=== PATIENT | female | born 1930 | race Hispanic/Latino ===

== ENCOUNTER 2017-03-17 14:26 | Inpatient (IN) | payer MEDICARE, OTHER ==
--- NOTE | 2017-03-17 15:33 | Emergency Department Report ---
ED Abdominal Pain HPI - General Chief Complaint: Abdominal Pain Stated Complaint: ABD PAIN,HTN Time Seen by Provider: 03/17/17 15:32 Source: patient, EMS Mode of arrival: Stretcher Limitations: No Limitations - History of Present Illness Initial Comments: The patient complains of the acute onset of lower abdominal pain at approximately 10:00 this morning. Pain also seems to involve her right upper quadrant. Does not radiate to the lower chest as stated in triage. I don't think this is accurate. Patient states she's not had pain like this before. She does not complain of back pain. She denies nausea vomiting fever or chills. She denies any prior surgery. MD Complaint: abdominal pain -: Sudden Location: periumbilical, RUQ, epigastric Radiation: RUQ Migration to: no migration Severity scale (0 -10): 10 Quality: aching Consistency: constant Improves With: nothing Worsens With: nothing Associated Symptoms: denies other symptoms. denies: nausea, vomiting, diarrhea , fever, chills, constipation (actually states frequent bowel movements) - Related Data Home Medications Medication Instructions Recorded Confirmed Last Taken Fluticasone/Salmeterol [Advair 1 puff IH BID 03/17/17 03/17/17 Unknown Diskus 250-50 mcg] Hydrochlorothiazide [Hctz] 12.5 mg PO QDAY 03/17/17 03/17/17 03/17/17 Simvastatin [Zocor TAB] 20 mg PO QHS 03/17/17 03/17/17 03/17/17 hydrALAZINE [Apresoline] 25 mg PO BID 03/17/17 03/17/17 03/17/17 Allergies Allergy/AdvReac Type Severity Reaction Status Date / Time No Known Allergies Allergy Unverified 07/21/13 20:48 ED Review of Systems ROS: Stated complaint: ABD PAIN,HTN Other details as noted in HPI Constitutional: denies: chills, fever Eyes: denies: eye pain, eye discharge, vision change ENT: denies: ear pain, throat pain Respiratory: denies: cough, shortness of breath, wheezing Cardiovascular: denies: chest pain, palpitations Endocrine: no symptoms reported Gastrointestinal: as per HPI, abdominal pain. denies: nausea, diarrhea Genitourinary: denies: urgency, dysuria, discharge Musculoskeletal: denies: back pain, joint swelling, arthralgia Skin: denies: rash, lesions Neurological: denies: headache, weakness, paresthesias Psychiatric: denies: anxiety, depression Hematological/Lymphatic: denies: easy bleeding, easy bruising ED Past Medical Hx - Past Medical History Hx Hypertension: Yes (no meds today) Hx CVA: Yes Hx Asthma: Yes Additional medical history: high cholesterol, gastric ulcer, hernia - Social History Smoking Status: Never Smoker Substance Use Type: Alcohol - Medications Home Medications: Home Medications Medication Instructions Recorded Confirmed Last Taken Type Fluticasone/Salmeterol [Advair 1 puff IH BID 03/17/17 03/17/17 Unknown History Diskus 250-50 mcg] Hydrochlorothiazide [Hctz] 12.5 mg PO QDAY 03/17/17 03/17/17 03/17/17 History Simvastatin [Zocor TAB] 20 mg PO QHS 03/17/17 03/17/17 03/17/17 History hydrALAZINE [Apresoline] 25 mg PO BID 03/17/17 03/17/17 03/17/17 History ED Physical Exam - General Limitations: No Limitations General appearance: alert, in distress - Head Head exam: Present: atraumatic, normocephalic - Eye Eye exam: Present: normal appearance. Absent: scleral icterus - ENT ENT exam: Present: mucous membranes moist - Neck Neck exam: Present: normal inspection. Absent: tenderness, meningismus - Respiratory Respiratory exam: Present: normal lung sounds bilaterally. Absent: respiratory distress - Cardiovascular Cardiovascular Exam: Present: regular rate, normal rhythm. Absent: systolic murmur, diastolic murmur, rubs, gallop - GI/Abdominal GI/Abdominal exam: Present: soft, tenderness, normal bowel sounds. Absent: distended, guarding, rebound, rigid, organomegaly, mass, bruit, pulsatile mass, hernia - Extremities Exam Extremities exam: Present: normal inspection - Back Exam Back exam: Present: normal inspection - Neurological Exam Neurological exam: Present: alert, oriented X3, CN II-XII intact. Absent: motor sensory deficit - Psychiatric Psychiatric exam: Present: normal affect, normal mood - Skin Skin exam: Present: warm, dry, intact, normal color. Absent: rash ED Course Vital Signs 03/17/17 03/17/17 03/17/17 14:47 14:48 14:49 Pulse Rate 63 62 Respiratory 13 13 Rate Blood Pressure 180/78 180/78 180/78 O2 Sat by Pulse 99 Oximetry 03/17/17 03/17/17 14:51 14:53 Pulse Rate 59 L 60 Respiratory 12 12 Rate Blood Pressure 162/70 162/70 O2 Sat by Pulse 99 99 Oximetry - Reevaluation(s) Reevaluation #1: Discussed the case with Dr. Celeste the surgeon. He recommended MRCP. He will be consulted. Discussed with Dr. Jiang who is admitted the patient for further care and evaluation. Lipase was quite high at 1312 and 2786 upon repeat. 03/17/17 18:31 Reevaluation #2: Pelvic exam was performed. The patient has a copious mucopurulent discharge. She did have adnexal tenderness. Diagnosis is PID. I will also consult Dr. Natarajan who has seen this patient past. I will improve her antibiotic coverage. 03/17/17 18:39 Reevaluation #3: Patient remains hemodynamically stable. Her ultrasound did not show gallstones or dilated duct. The gallbladder was distended. Further care per and consultants. 03/17/17 19:12 ED Medical Decision Making - Lab Data Result diagrams: 03/17/17 15:15 03/17/17 15:15 Laboratory Results - last 24 hr 03/17/17 03/17/17 03/17/17 15:15 15:15 15:15 WBC 10.7 RBC 5.02 Hgb 13.9 Hct 43.1 H MCV 86 MCH 28 MCHC 32 RDW 15.5 H Plt Count 415 Lymph % (Auto) 7.2 L Jennings % (Auto) 6.1 Eos % (Auto) 0.5 Baso % (Auto) 0.5 Lymph # 0.8 L Jennings # 0.7 Eos # 0.1 Baso # 0.1 Seg Neutrophils % 85.7 H Seg Neutrophils # 9.2 H PT INR APTT Sodium 139 Potassium 3.7 Chloride 96.2 L Carbon Dioxide 23 Anion Gap 24 BUN 13 Creatinine 0.4 L Estimated GFR > 60 BUN/Creatinine Ratio 32.50 Glucose 118 H Lactic Acid Calcium 9.1 Magnesium Total Bilirubin 1.10 Direct Bilirubin 0.8 H Indirect Bilirubin 0.3 AST 261 H ALT 130 H Alkaline Phosphatase 197 H Total Creatine Kinase CK-MB (CK-2) CK-MB (CK-2) Rel Index Troponin T < 0.010 NT-Pro-B Natriuret Pep Total Protein 6.4 Albumin 3.8 L Albumin/Globulin Ratio 1.5 Lipase > 300 H Blood Type Antibody Screen 03/17/17 03/17/17 03/17/17 16:36 16:36 16:36 WBC RBC Hgb Hct MCV MCH MCHC RDW Plt Count Lymph % (Auto) Jennings % (Auto) Eos % (Auto) Baso % (Auto) Lymph # Jennings # Eos # Baso # Seg Neutrophils % Seg Neutrophils # PT 14.4 INR 1.13 APTT 29.1 Sodium Potassium Chloride Carbon Dioxide Anion Gap BUN Creatinine Estimated GFR BUN/Creatinine Ratio Glucose Lactic Acid 1.40 Calcium Magnesium Total Bilirubin Direct Bilirubin Indirect Bilirubin AST ALT Alkaline Phosphatase Total Creatine Kinase CK-MB (CK-2) CK-MB (CK-2) Rel Index Troponin T < 0.010 NT-Pro-B Natriuret Pep Total Protein Albumin Albumin/Globulin Ratio Lipase Blood Type Antibody Screen 03/17/17 03/17/17 03/17/17 16:36 16:36 16:36 WBC RBC Hgb Hct MCV MCH MCHC RDW Plt Count Lymph % (Auto) Jennings % (Auto) Eos % (Auto) Baso % (Auto) Lymph # Jennings # Eos # Baso # Seg Neutrophils % Seg Neutrophils # PT INR APTT Sodium Potassium Chloride Carbon Dioxide Anion Gap BUN Creatinine Estimated GFR BUN/Creatinine Ratio Glucose Lactic Acid Calcium Magnesium 1.90 Total Bilirubin Direct Bilirubin Indirect Bilirubin AST ALT Alkaline Phosphatase Total Creatine Kinase 49 CK-MB (CK-2) 2.0 CK-MB (CK-2) Rel Index 4.0 Troponin T NT-Pro-B Natriuret Pep 123.5 Total Protein Albumin Albumin/Globulin Ratio Lipase Blood Type AB POSITIVE Antibody Screen Negative - EKG Data -: EKG Interpreted by Me EKG shows normal: sinus rhythm, axis (left axis), intervals, QRS complexes ( incomplete right bundle branch block), ST-T waves (nonspecific changes) - EKG Data Interpretation: no acute changes - Radiology Data Radiology results: report reviewed Consistent with pancreatitis rule out mass. Possible distended gallbladder with no gallstones on CT Critical care attestation.: If time is entered above; I have spent that time in minutes in the direct care of this critically ill patient, excluding procedure time. ED Disposition Clinical Impression: Pancreatitis Qualifiers: Chronicity: acute Pancreatitis type: other Acute pancreatitis complication: unspecified Qualified Code(s): K85.80 - Other acute pancreatitis without necrosis or infection Disposition: OP ADMIT IP TO THIS HOSP Is pt being admited?: Yes Does the pt Need Aspirin: No Condition: Stable Instructions: Abdominal Pain (ED) Referrals: PRIMARY CARE, [Primary Care Provider] - 3-5 Days Time of Disposition: 19:14
[2017-03-17] MEDS ORDERED: ZOFRAN IV ONE (15:44)
[2017-03-17] MEDS ORDERED: MORPHINE IV ONE ×2 (15:44→17:05)
[2017-03-17] MEDS ORDERED: ZOSYN/NS 3.375GM/50ML 3.375 GM/50 ML BAG IV ONE (15:47)
[2017-03-17 16:00] LABS: Basophils % (Auto) 0.5 % (0.0-1.8); Eosinophils % (Auto) 0.5 % (0.0-4.3); Hematocrit 43.1 % (30.3-42.9); Hemoglobin 13.9 gm/dl (10.1-14.3); Mean Corpuscular HGB Conc 32 % (30-34); Mean Corpuscular Hemoglobin 28 pg (28-32); Mean Corpuscular Volume 86 fl (79-97); Red Blood Count 5.02 M/mm3 (3.65-5.03); Red Cell Distribution Width 15.5 % (13.2-15.2); White Blood Count 10.7 K/mm3 (4.5-11.0)
[2017-03-17 16:12] LABS: Platelet Count 415 K/mm3 (140-440)
[2017-03-17 16:21] LABS: Alanine Aminotransferase 130 units/L (7-56); Albumin/Globulin Ratio 1.5 %; Alkaline Phosphatase 197 units/L (35-129); Anion Gap 24 mmol/L; Bilirubin,Direct 0.8 mg/dL (0-0.2); Bilirubin,Indirect 0.3 mg/dL; Blood Urea Nitrogen 13 mg/dL (7-17); Calcium 9.1 mg/dL (8.4-10.2); Carbon Dioxide 23 mmol/L (22-30); Chloride 96.2 mmol/L (98-107); Glucose 118 mg/dL (65-100); Potassium 3.7 mmol/L (3.6-5.0); Sodium 139 mmol/L (137-145); Total Protein 6.4 g/dL (6.3-8.2)
--- NOTE | 2017-03-17 16:43 | Cat Scan Report ---
CT of the abdomen and pelvis without contrast. History: Abdominal pain. Findings: There is a large hiatal hernia which is incompletely imaged on this study. The liver and spleen appear normal. The gallbladder is distended. There is suggestion of thickening of the wall the gallbladder, but this is not a definite finding. Correlation with gallbladder or sound is recommended. There is fullness of the pancreas at the junction of the body and tail. A mass in this lesion cannot be excluded. Calcified splenic vessels are noted. The kidneys are normal in size and configuration with no evidence of hydronephrosis or stones. There are no pelvic masses or abnormal fluid collections. No free air is seen. Uterine calcifications are noted. Impression: 1. Distended gallbladder with equivocal evidence of gallbladder wall thickening. Please correlate with gallbladder ultrasound. 2. Fullness of the pancreas at the junction of the body and tail. A Pancreatic mass cannot be excluded. 3. Large hiatal hernia, incompletely imaged.
[2017-03-17 17:08] LABS: INR 1.13 (0.87-1.13)
[2017-03-17 17:09] LABS: Partial Thromboplastin Time 29.1 Sec. (24.2-36.6)
[2017-03-17 17:16] LABS: Magnesium 1.9 mg/dL (1.7-2.3)
--- NOTE | 2017-03-17 17:16 | Admit Criteria Form ---
Admission Criteria Documentation: PANCREATITIS Clinical Indications for Admission to Inpatient Care (Place 'X' for any and all applicable criteria): Admission is indicated for 1 or more of the following (1)(2)(3)(4): [X ]I. Acute pancreatitis[A] as indicated by 2 or MORE of the following: [X ]a) Abdominal pain (eg, epigastric, left upper quadrant) [X ]b) Serum amylase or serum lipase greater than 3 times the upper limit of normal [ ]c) Characteristic findings from abdominal imaging (eg, pancreatic inflammation, pancreatic necrosis, peripancreatic fluid collection)[B] [ ]II. Pancreatitis (acute or chronic ) requiring inpatient care as indicated by 1 or more of the following [ ]a) Inability to maintain oral hydration Hypoxemia [ ]b) Evidence of infection (eg, fever, peripancreatic abscess) [ ]c) Severe pain requiring acute inpatient management [ ]d) Hemodynamic instability [ ]e) Hypoxemia [ ]f) Acute renal failure [ ]g) Severe electrolyte abnormalities Extended stay beyond goal length of stay may be needed for (1)(11) [ ]a) Severe acute pancreatitis (10)(19) [ ]b) Persistent symptoms, ascites, or pleural effusion [ ]c) Abdominal compartment syndrome (10) [ ]d) Late complications [ ]e) Gallstones in gallbladder [ ]f) Acute renal failure (27) The original [employer] content created by [employer] has been revised. The portions of the content which have been revised are identified through the use of italic text or in bold,and [facility] has neither reviewed nor approved the modified material.All other unmodified content is copyright [email or web address]. Please see references footnoted in the original [email or web address] edition 2016 Admission Criteria Met: Yes
[2017-03-17] MEDS ORDERED: DILAUDID IV ONE (18:09)
[2017-03-17] MEDS ORDERED: PEPCID IV ONE (18:10)
[2017-03-17 18:39] LABS: Albumin 3.8 g/dL (3.9-5); Lipase 2786 units/L (13-60)
--- NOTE | 2017-03-17 18:51 | Ultrasound Report ---
FINAL REPORT PROCEDURE: US ABDOMEN LIMITED TECHNIQUE: Real-time sonography was performed of the right upper quadrant of the abdomen with image documentation. CPT 88539 HISTORY: pancreatitis evaluate gall bladder COMPARISON: No prior studies are available for comparison. FINDINGS: Pancreas is obscured due to bowel gas. Proximal abdominal aorta is normal in size. Right kidney measures 8.1 cm in length and displays no abnormalities. Common bile duct is normal in size. Gallbladder is prominently distended without wall thickening or cholelithiasis. Consideration should be given to gallbladder hypofunction. No ascites is seen. IMPRESSION: Gallbladder is prominently distended. No suggestion of common bile duct obstruction is seen. Further evaluation with nuclear medicine biliary scan including CCK administration may be useful.
--- NOTE | 2017-03-17 20:21 | History and Physical Report ---
History of Present Illness Date of examination: 03/17/17 Date of admission: 03/17/17 19:10 Chief complaint: CC Severe Abdominalpain for 1 day History of present illness: History of Present Illness The patient complains of the acute onset of lower abdominal pain at approximately 10:00 this morning. Pain also seems to involve her right upper quadrant. Does not radiate to the lower chest as stated in triage. Patient states she's not had pain like this before. She does not complain of back pain. She denies nausea vomiting fever or chills. She denies any prior surgery.Pain is 10/10 sharp in nature. No exacerbating /relieving factors. MD Complaint: abdominal pain -: Sudden Location: periumbilical, RUQ, epigastric Radiation: RUQ Migration to: no migration Severity scale (0 -10): 10 Quality: aching Consistency: constant Improves With: nothing Worsens With: nothing Associated Symptoms: denies other symptoms. denies: nausea, vomiting, diarrhea , fever, chills, constipation (actually states frequent bowel movements) ED Past Medical Hx - Past Medical History Hx Hypertension: Yes (no meds today) Hx CVA: Yes Hx Asthma: Yes Additional medical history: high cholesterol, gastric ulcer, hernia - Social History Smoking Status: Never Smoker Substance Use Type: Alcohol Fam Hx Htn Surg Hx n/a - Medications Home Medications: Home Medications Medication Instructions Recorded Confirmed Last Taken Type Fluticasone/Salmeterol [Advair 1 puff IH BID 03/17/17 03/17/17 Unknown History Diskus 250-50 mcg] Hydrochlorothiazide [Hctz] 12.5 mg PO QDAY 03/17/17 03/17/17 03/17/17 History Simvastatin [Zocor TAB] 20 mg PO QHS 03/17/17 03/17/17 03/17/17 History hydrALAZINE [Apresoline] 25 mg PO BID 03/17/17 03/17/17 03/17/17 History Review of Systems Stated complaint: ABD PAIN,HTN Other details as noted in HPI Constitutional: denies: chills, fever Eyes: denies: eye pain, eye discharge, vision change ENT: denies: ear pain, throat pain Respiratory: denies: cough, shortness of breath, wheezing Cardiovascular: denies: chest pain, palpitations Endocrine: no symptoms reported Gastrointestinal: as per HPI, abdominal pain. denies: nausea, diarrhea Genitourinary: denies: urgency, dysuria, discharge Musculoskeletal: denies: back pain, joint swelling, arthralgia Skin: denies: rash, lesions Neurological: denies: headache, weakness, paresthesias Psychiatric: denies: anxiety, depression Hematological/Lymphatic: denies: easy bleeding, easy bruising Medications and Allergies Allergies Allergy/AdvReac Type Severity Reaction Status Date / Time No Known Allergies Allergy Unverified 07/21/13 20:48 Home Medications Medication Instructions Recorded Confirmed Last Taken Type Fluticasone/Salmeterol [Advair 1 puff IH BID 03/17/17 03/17/17 Unknown History Diskus 250-50 mcg] Hydrochlorothiazide [Hctz] 12.5 mg PO QDAY 03/17/17 03/17/17 03/17/17 History Simvastatin [Zocor TAB] 20 mg PO QHS 03/17/17 03/17/17 03/17/17 History hydrALAZINE [Apresoline] 25 mg PO BID 03/17/17 03/17/17 03/17/17 History Exam - Constitutional Vitals: Temp Pulse Resp BP Pulse Ox 83 28 H 150/82 96 03/17/17 19:03 03/17/17 19:03 03/17/17 19:03 03/17/17 19:03 General appearance: Present: severe distress, well-nourished - EENT Eyes: Present: PERRL ENT: hearing intact, clear oral mucosa - Neck Neck: Present: supple, normal ROM - Respiratory Respiratory effort: normal Respiratory: bilateral: CTA - Cardiovascular Heart rate: 80 Rhythm: regular Heart Sounds: Present: S1 & S2. Absent: rub, click - Extremities Extremities: no ischemia, pulses intact, pulses symmetrical, No edema Peripheral Pulses: within normal limits - Abdominal General gastrointestinal: Present: tender, normal bowel sounds Localized gastrointestinal: tender: RUQ, epigastric periumbilical, guarding: RUQ , epigastric periumbilical, rebound: RUQ, epigastric periumbilical Female genitourinary: Present: deferred - Rectal Rectal Exam: deferred - Integumentary Integumentary: Present: clear, warm, dry - Musculoskeletal Musculoskeletal: gait normal, strength equal bilaterally - Psychiatric Psychiatric: appropriate mood/affect, intact judgment & insight - Neurologic Neurologic: CNII-XII intact, moves all extremities - Allied Health Allied health notes reviewed: nursing, case management Results - Labs CBC & Chem 7: 03/17/17 15:15 03/17/17 15:15 Labs: Laboratory Last Values WBC 10.7 K/mm3 (4.5-11.0) 03/17/17 15:15 RBC 5.02 M/mm3 (3.65-5.03) 03/17/17 15:15 Hgb 13.9 gm/dl (10.1-14.3) 03/17/17 15:15 Hct 43.1 % (30.3-42.9) H 03/17/17 15:15 MCV 86 fl (79-97) 03/17/17 15:15 MCH 28 pg (28-32) 03/17/17 15:15 MCHC 32 % (30-34) 03/17/17 15:15 RDW 15.5 % (13.2-15.2) H 03/17/17 15:15 Plt Count 415 K/mm3 (140-440) 03/17/17 15:15 Lymph % (Auto) 7.2 % (13.4-35.0) L 03/17/17 15:15 [place] % (Auto) 6.1 % (0.0-7.3) 03/17/17 15:15 Eos % (Auto) 0.5 % (0.0-4.3) 03/17/17 15:15 Baso % (Auto) 0.5 % (0.0-1.8) 03/17/17 15:15 Lymph # 0.8 K/mm3 (1.2-5.4) L 03/17/17 15:15 [place] # 0.7 K/mm3 (0.0-0.8) 03/17/17 15:15 Eos # 0.1 K/mm3 (0.0-0.4) 03/17/17 15:15 Baso # 0.1 K/mm3 (0.0-0.1) 03/17/17 15:15 Seg Neutrophils % 85.7 % (40.0-70.0) H 03/17/17 15:15 Seg Neutrophils # 9.2 K/mm3 (1.8-7.7) H 03/17/17 15:15 PT 14.4 Sec. (12.2-14.9) 03/17/17 16:36 INR 1.13 (0.87-1.13) 03/17/17 16:36 APTT 29.1 Sec. (24.2-36.6) 03/17/17 16:36 Sodium 139 mmol/L (137-145) 03/17/17 15:15 Potassium 3.7 mmol/L (3.6-5.0) 03/17/17 15:15 Chloride 96.2 mmol/L (98-107) L 03/17/17 15:15 Carbon Dioxide 23 mmol/L (22-30) 03/17/17 15:15 Anion Gap 24 mmol/L 03/17/17 15:15 BUN 13 mg/dL (7-17) 03/17/17 15:15 Creatinine 0.4 mg/dL (0.7-1.2) L 03/17/17 15:15 Estimated GFR > 60 ml/min 03/17/17 15:15 BUN/Creatinine Ratio 32.50 % 03/17/17 15:15 Glucose 118 mg/dL (65-100) H 03/17/17 15:15 Lactic Acid 1.40 mmol/L (0.7-2.0) 03/17/17 16:36 Calcium 9.1 mg/dL (8.4-10.2) 03/17/17 15:15 Magnesium 1.90 mg/dL (1.7-2.3) 03/17/17 16:36 Total Bilirubin 1.10 mg/dL (0.1-1.2) 03/17/17 15:15 Direct Bilirubin 0.8 mg/dL (0-0.2) H 03/17/17 15:15 Indirect Bilirubin 0.3 mg/dL 03/17/17 15:15 AST 261 units/L (5-40) H 03/17/17 15:15 ALT 130 units/L (7-56) H 03/17/17 15:15 Alkaline Phosphatase 197 units/L (35-129) H 03/17/17 15:15 Total Creatine Kinase 49 units/L (30-135) 03/17/17 16:36 CK-MB (CK-2) 2.0 ng/mL (0.0-4.0) 03/17/17 16:36 CK-MB (CK-2) Rel Index 4.0 (0-4) 03/17/17 16:36 Troponin T < 0.010 ng/mL (0.00-0.029) 03/17/17 16:36 NT-Pro-B Natriuret Pep 123.5 pg/mL (0-900) 03/17/17 16:36 Total Protein 6.4 g/dL (6.3-8.2) 03/17/17 15:15 Albumin 3.8 g/dL (3.9-5) L 03/17/17 15:15 Albumin/Globulin Ratio 1.5 % 03/17/17 15:15 Lipase 2786 units/L (13-60) H 03/17/17 15:15 Blood Type AB POSITIVE 03/17/17 16:36 Antibody Screen Negative 03/17/17 16:36 Short CBC 03/17/17 Range/Units 15:15 WBC 10.7 (4.5-11.0) K/mm3 Hgb 13.9 (10.1-14.3) gm/dl Hct 43.1 H (30.3-42.9) % Plt Count 415 (140-440) K/mm3 BMP 03/17/17 15:15 Sodium 139 Potassium 3.7 Chloride 96.2 L Carbon Dioxide 23 BUN 13 Creatinine 0.4 L Glucose 118 H Calcium 9.1 Cardiac Enzymes 03/17/17 03/17/17 03/17/17 Range/Units 15:15 16:36 16:36 Total Creatine Kinase 49 (30-135) units/L CK-MB (CK-2) 2.0 (0.0-4.0) ng/mL Troponin T < 0.010 < 0.010 (0.00-0.029) ng/mL 03/17/17 Range/Units 21:17 Total Creatine Kinase (30-135) units/L CK-MB (CK-2) (0.0-4.0) ng/mL Troponin T < 0.010 (0.00-0.029) ng/mL Liver Function 03/17/17 Range/Units 15:15 Total Bilirubin 1.10 (0.1-1.2) mg/dL Direct Bilirubin 0.8 H (0-0.2) mg/dL AST 261 H (5-40) units/L ALT 130 H (7-56) units/L Alkaline Phosphatase 197 H (35-129) units/L Albumin 3.8 L (3.9-5) g/dL - Imaging and Cardiology CT scan - abdomen: report reviewed (Distende GB Fullness of pancreas) US - abdomen: report reviewed (GB distended ,No Bile duct obstruction) Assessment and Plan Advance Directives: Yes (Full code) VTE prophylaxis?: Chemical Plan of care discussed with patient/family: Yes - Patient Problems (1) Acute pancreatitis Current Visit: Yes Status: Acute Qualifiers: Pancreatitis type: biliary Acute pancreatitis complication: A Plan to address problem: Probably Gall stone induced GB distended Symptomatic treatment NPO IV fluids (2) Transaminitis Current Visit: Yes Status: Acute Plan to address problem: GB distended MRCP ordered Surgery consult ordered (3) HTN (hypertension) Current Visit: Yes Status: Chronic Qualifiers: Hypertension type: essential hypertension Qualified Code(s): I10 - Essential (primary) hypertension Plan to address problem: Catapress patch if needed (4) HLD (hyperlipidemia) Current Visit: Yes Status: Chronic Qualifiers: Hyperlipidemia type: mixed hyperlipidemia Qualified Code(s): E78.2 - Mixed hyperlipidemia Plan to address problem: Hold statins for now (5) Asthma Current Visit: No Status: Chronic Qualifiers: Asthma severity: A Asthma complication type: uncomplicated Plan to address problem: Advair prn (6) DVT prophylaxis Current Visit: Yes Status: Acute Plan to address problem: on Lovenox
[2017-03-17] MEDS ORDERED: DULCOLAX PR PRN (20:40)
[2017-03-17] MEDS ORDERED: ZOFRAN IV PRN (20:40)
[2017-03-17] MEDS ORDERED: MILK OF MAGNESIA PO PRN (20:40)
[2017-03-17] MEDS ORDERED: DILAUDID ONE (20:54)
[2017-03-17] MEDS: DILAUDID IV PRN (20:55)
[2017-03-17] MEDS: PULMICORT IH SCH (21:21)
[2017-03-17] MEDS: BROVANA NEBU IH SCH (21:21)
[2017-03-17] MEDS ORDERED: NON-FORMULARY (Fluticasone/Salmeterol [Advair Diskus 250-50 Mcg] 1 PUFF) IH SCH (22:00)
[2017-03-18] MEDS: D5NS 1,000 ML IV SCH ×2 (02:49→12:55)
[2017-03-18] MEDS: DILAUDID IV PRN ×4 (02:52→23:02)
[2017-03-18] MEDS: BROVANA NEBU IH SCH ×2 (07:32→19:49)
[2017-03-18] MEDS: PULMICORT IH SCH ×2 (07:32→19:49)
--- NOTE | 2017-03-18 07:54 | XRay Report ---
PORTABLE CHEST INDICATION: Chest pain. COMPARISON: 07/21/2013 FINDINGS: Portable, frontal chest radiograph again suggests a large hiatal hernia, approximately 12-13 cm transverse. Stable cardiomediastinal silhouette with poorer inspiration and increased lung markings centrally. Few chronic changes as mild bronchiectasis/peribronchial thickening/scarring noted more pronounced infrahilar and towards the bases. No significant pleural effusions or overt CHF. EKG leads. Demineralized bones. CONCLUSION: No significant acute chest process with various other findings, including a large hiatal hernia, as above. Please correlate. Thank you for the opportunity to participate in this patient's care.
[2017-03-18] MEDS: CATAPRES-TTS PATCH TD SCH (11:01)
[2017-03-18] MEDS: LOVENOX SUB-Q SCH (11:01)
[2017-03-18] MEDS: PEPCID IV SCH ×2 (11:02→22:09)
[2017-03-18] MEDS: ZOFRAN IV PRN ×2 (11:02→16:02)
--- NOTE | 2017-03-18 12:44 | Progress Note ---
Assessment and Plan Assessment and plan: --Acute pancreatitis Nothing by mouth status, pain medications, IV fluid Follow-up MRCP, HIDA scan if needed Surgery following --Transaminitis; closely monitor, supportive care --Dyslipidemia; on lipid-lowering medications --Hypertension; moderate control, continue current antihypertensives and when necessary medications --History of bronchial asthma, stable oxygen titrated to O2 sats more than 90% as needed --Full CODE STATUS --DVT prophylaxis; continue Lovenox Closely monitor the patient didn't adjust management as needed Plan of care discussed with the patient's family member in the room History Interval history: Patient seen and evaluated now responding reviewed Complains of mild epigastric pain Scheduled for MRCP, surgery following the patient Hospitalist Physical - Constitutional Vitals: Temp Pulse Resp BP Pulse Ox 97.6 F 77 18 118/75 98 03/18/17 08:00 03/18/17 08:00 03/18/17 08:00 03/18/17 08:00 03/18/17 09:34 General appearance: Present: mild distress, well-nourished - EENT Eyes: Present: PERRL, EOM intact - Neck Neck: Present: supple, normal ROM - Respiratory Respiratory effort: normal Respiratory: negative: rales, rhonchi, wheezing - Cardiovascular Rhythm: regular Heart Sounds: Present: S1 & S2 - Extremities Extremities: no ischemia, No edema - Abdominal General gastrointestinal: soft, tender (vague tenderness no guarding no rigidity ), normal bowel sounds - Integumentary Integumentary: Present: clear, warm - Psychiatric Psychiatric: appropriate mood/affect, cooperative - Neurologic Neurologic: CNII-XII intact, moves all extremities Results - Labs CBC & Chem 7: 03/17/17 15:15 03/17/17 15:15 Labs: Laboratory Last Values WBC 10.7 K/mm3 (4.5-11.0) 03/17/17 15:15 RBC 5.02 M/mm3 (3.65-5.03) 03/17/17 15:15 Hgb 13.9 gm/dl (10.1-14.3) 03/17/17 15:15 Hct 43.1 % (30.3-42.9) H 03/17/17 15:15 MCV 86 fl (79-97) 03/17/17 15:15 MCH 28 pg (28-32) 03/17/17 15:15 MCHC 32 % (30-34) 03/17/17 15:15 RDW 15.5 % (13.2-15.2) H 03/17/17 15:15 Plt Count 415 K/mm3 (140-440) 03/17/17 15:15 Lymph % (Auto) 7.2 % (13.4-35.0) L 03/17/17 15:15 [place] % (Auto) 6.1 % (0.0-7.3) 03/17/17 15:15 Eos % (Auto) 0.5 % (0.0-4.3) 03/17/17 15:15 Baso % (Auto) 0.5 % (0.0-1.8) 03/17/17 15:15 Lymph # 0.8 K/mm3 (1.2-5.4) L 03/17/17 15:15 [place] # 0.7 K/mm3 (0.0-0.8) 03/17/17 15:15 Eos # 0.1 K/mm3 (0.0-0.4) 03/17/17 15:15 Baso # 0.1 K/mm3 (0.0-0.1) 03/17/17 15:15 Seg Neutrophils % 85.7 % (40.0-70.0) H 03/17/17 15:15 Seg Neutrophils # 9.2 K/mm3 (1.8-7.7) H 03/17/17 15:15 PT 14.4 Sec. (12.2-14.9) 03/17/17 16:36 INR 1.13 (0.87-1.13) 03/17/17 16:36 APTT 29.1 Sec. (24.2-36.6) 03/17/17 16:36 Sodium 139 mmol/L (137-145) 03/17/17 15:15 Potassium 3.7 mmol/L (3.6-5.0) 03/17/17 15:15 Chloride 96.2 mmol/L (98-107) L 03/17/17 15:15 Carbon Dioxide 23 mmol/L (22-30) 03/17/17 15:15 Anion Gap 24 mmol/L 03/17/17 15:15 BUN 13 mg/dL (7-17) 03/17/17 15:15 Creatinine 0.4 mg/dL (0.7-1.2) L 03/17/17 15:15 Estimated GFR > 60 ml/min 03/17/17 15:15 BUN/Creatinine Ratio 32.50 % 03/17/17 15:15 Glucose 118 mg/dL (65-100) H 03/17/17 15:15 Lactic Acid 1.40 mmol/L (0.7-2.0) 03/17/17 16:36 Calcium 9.1 mg/dL (8.4-10.2) 03/17/17 15:15 Magnesium 1.90 mg/dL (1.7-2.3) 03/17/17 16:36 Total Bilirubin 1.10 mg/dL (0.1-1.2) 03/17/17 15:15 Direct Bilirubin 0.8 mg/dL (0-0.2) H 03/17/17 15:15 Indirect Bilirubin 0.3 mg/dL 03/17/17 15:15 AST 261 units/L (5-40) H 03/17/17 15:15 ALT 130 units/L (7-56) H 03/17/17 15:15 Alkaline Phosphatase 197 units/L (35-129) H 03/17/17 15:15 Total Creatine Kinase 49 units/L (30-135) 03/17/17 16:36 CK-MB (CK-2) 2.0 ng/mL (0.0-4.0) 03/17/17 16:36 CK-MB (CK-2) Rel Index 4.0 (0-4) 03/17/17 16:36 Troponin T < 0.010 ng/mL (0.00-0.029) 03/17/17 21:17 NT-Pro-B Natriuret Pep 123.5 pg/mL (0-900) 03/17/17 16:36 Total Protein 6.4 g/dL (6.3-8.2) 03/17/17 15:15 Albumin 3.8 g/dL (3.9-5) L 03/17/17 15:15 Albumin/Globulin Ratio 1.5 % 03/17/17 15:15 Lipase 2786 units/L (13-60) H 03/17/17 15:15 Blood Type AB POSITIVE 03/17/17 16:36 Antibody Screen Negative 03/17/17 16:36
--- NOTE | 2017-03-18 13:39 | Progress Note ---
Assessment and Plan Full consult dictated. 87 y/o female c/o RUQ & Epig pain. neg N or V Abd soft, mild epig and RUQ tenderess CT questionable mid body pancreatic mass. dilated GB no stones or thickened wall labs as below r/o pancreatitis r/o GB dysfunction/dyskenesia await MRCP possible HIDA with EF (but pt currently on narcotics) will follow with you thanks, fp Selected Entries 03/18/17 12:00 Temperature 98.3 F Pulse Rate 77 Respiratory 18 Rate Blood Pressure 115/77 Laboratory Tests 03/17/17 03/17/17 03/17/17 15:15 15:15 16:36 WBC 10.7 Hgb 13.9 Hct 43.1 H Plt Count 415 PT 14.4 INR 1.13 APTT 29.1 Sodium 139 Potassium 3.7 Chloride 96.2 L BUN 13 Creatinine 0.4 L Glucose 118 H Direct Bilirubin 0.8 H Indirect Bilirubin 0.3 AST 261 H ALT 130 H Alkaline Phosphatase 197 H Lipase 2786 H Objective Vital Signs - 12hr 03/18/17 03/18/17 03/18/17 04:18 05:53 07:40 Temperature 97.4 F L Pulse Rate 84 86 Pulse Rate [ 85 Anterior Bilateral Throughout] Respiratory 21 Rate Respiratory 18 Rate [Anterior Bilateral Throughout] Blood Pressure 128/81 O2 Sat by Pulse 98 Oximetry 03/18/17 03/18/17 03/18/17 07:50 08:00 09:34 Temperature 97.6 F Pulse Rate 77 Pulse Rate [ 86 Anterior Bilateral Throughout] Respiratory 18 Rate Respiratory 18 Rate [Anterior Bilateral Throughout] Blood Pressure 118/75 O2 Sat by Pulse 98 98 Oximetry 03/18/17 12:00 Temperature 98.3 F Pulse Rate 77 Pulse Rate [ Anterior Bilateral Throughout] Respiratory 18 Rate Respiratory Rate [Anterior Bilateral Throughout] Blood Pressure 115/77 O2 Sat by Pulse 95 Oximetry - Labs 03/17/17 15:15 03/17/17 15:15
[2017-03-18 14:04] LABS: Bilirubin,Urine NEG (Negative); Blood,Urine NEG (Negative); Ketones,Urine NEG (Negative); Leukocyte Esterase,Urine NEG (Negative); Mucus,Urine FEW /HPF; Nitrite,Urine NEG (Negative); Protein,Urine <15 mg/dL mg/dL (Negative); Urobilinogen,Urine < 2.0 mg/dL (<2.0)
[2017-03-18] MEDS ORDERED: LEVAQUIN 500MG/100ML 500 MG/100 ML BAG IV SCH (16:00)
--- NOTE | 2017-03-18 16:00 | Event Note ---
Date: 03/18/17 Was consulted for percutaneous cholecystostomy placement. This patient is currently being evaluated by surgery, and a HIDA scan is pending as well. A full consult will be dictated once final surgical recommendations and the HIDA scan results are available. This was discussed with Dr. Johnson.
--- NOTE | 2017-03-18 16:07 | Magnetic Resonance Report ---
MRI of the abdomen with MRCP. History: Pancreatitis, gallbladder distention. Procedure: Multiplanar multisequence study of the abdomen was performed. MRCP was performed using water sensitive slab sequence. Findings: The liver is normal in size and configuration. The gallbladder is distended and there is minimal pericholecystic fluid. Minimal ascites is also seen adjacent to the liver. The main portal vein appears patent, but there appears to be thrombosis of the left portal vein. There is also patency of the umbilical vein with stranding in the adjacent mesenteric fat. The spleen appears normal. There is soft tissue prominence of the region of the junction of the body and tail of the pancreas, similar to the appearance on CT. This area demonstrates similar signal to the rest of the pancreas with no evidence of pseudocyst or focal edema. A small cyst is seen in the upper pole of the left kidney. Otherwise the kidneys are unremarkable. MRCP demonstrates normal common duct with no obstructing or constricting lesions. The pancreatic duct appears normal as well. Impression: 1. Pericholecystic fluid with minimal gallbladder wall thickening. Minimal ascites is present. [place] cholecystitis is suspected. 2. Left portal venous thrombosis. 3. Soft tissue fullness at the junction of the pancreatic body and tail. Focal pancreatitis may be present although signs of edema in this area are lacking. Therefore, a mass in this area cannot be excluded. 4. Small left renal cyst.
[2017-03-18] MEDS ORDERED: LEVAQUIN 750MG/150ML 750 MG/150 ML BAG IV SCH (17:00)
[2017-03-19] MEDS: D5NS 1,000 ML IV SCH ×2 (01:53→15:46)
--- NOTE | 2017-03-19 02:02 | Consultation ---
REASON FOR CONSULTATION: Abdominal pain. Rule out pancreatitis. HISTORY OF PRESENT ILLNESS: The patient is an 87-year-old very pleasant female, who is awake, alert, and cooperative. Admitted with the chief complaint of what she describes as right upper quadrant epigastric and left upper quadrant abdominal pain. The patient denies any nausea or vomiting. also is having regular BMs. PAST MEDICAL HISTORY: Pertinent for hypertension and high cholesterol. PAST SURGICAL HISTORY: Status post right ankle surgery when she was a child back in [place]. Also, status post appendectomy and a left forearm ORIF. ALLERGIES: No known allergies. MEDICATIONS: Include statins or high cholesterol and a blood pressure medication, which she cannot recall at this time. FAMILY HISTORY: Hypertension. SOCIAL HISTORY: Occasional ethanol intake, smokes a pack a day for approximately 34 years, but quit approximately 33 years ago. PHYSICAL EXAMINATION: GENERAL: At this time reveals the patient to be awake, alert, cooperative, in no acute distress. VITAL SIGNS: Show her to be afebrile with a temperature of 98.3, blood pressure is 115/77, pulse of 77, respirations of 18. HEENT: Pupils are equal and reactive to light and accommodation. Sclerae is nonicteric. ABDOMEN: Reveals to be moderately obese and soft. There is some localized epigastric and right upper quadrant tenderness more so in the right upper quadrant. Bowel sounds are present and appear normal. LABORATORY DATA: Lab work at present includes a CBC which shows a white count of 10.7, H and H of 13.9 and 43.1. Platelet count is 415. PT and INR as well as PTT are within normal limits. Electrolytes show normal sodium of 139, potassium of 3.7, chloride of 96, BUN is 13, and creatinine is 0.4. Glucose is 118. Bilirubin is 1.1 with a direct of 0.8. AST is slightly elevated at 261, ALT at 130, and alk phos of 197. Lipase is elevated at 2786. No amylase is noted in the lab results. A CT scan of the abdomen has been performed, which I reviewed with Dr. Castillo. The gallbladder is noted to be dilated, but there is no thickened gallbladder wall or pericholecystic fluid. Also, no gallstones were noted. Common duct does not appear to be dilated. There is a questionable mass in the body of the pancreas. Unfortunately no contrast was used in this study, so it cannot be clearly delineated. A gallbladder ultrasound was also performed which again reveals no gallstones or thickened gallbladder wall. IMPRESSION: At this time is that of an 87-year-old hypertensive female with nonspecific abdominal pain. Rule out pancreatitis. Rule out possible gallbladder dysfunction/dyskinesia. RECOMMENDATIONS: At this time is to keep the patient n.p.o. as she is still requiring narcotics for pain. Awaiting MRCP results of tests, which has been ordered. Also, we will order a HIDA scan with ejection fraction to be done once the patient's narcotics can be discontinued. We will follow closely with you. Thank you very much for consultation. JOB# [id number] KARL/ANDREINA
[2017-03-19 06:10] LABS: Alanine Aminotransferase 106 units/L (7-56); Albumin 2.9 g/dL (3.9-5); Alkaline Phosphatase 142 units/L (35-129); Amylase 53 units/L (27-131); Anion Gap 14 mmol/L; Blood Urea Nitrogen 14 mg/dL (7-17); Calcium 8.1 mg/dL (8.4-10.2); Carbon Dioxide 30 mmol/L (22-30); Chloride 101.8 mmol/L (98-107); Glucose 113 mg/dL (65-100); Lipase 71 units/L (13-60); Sodium 142 mmol/L (137-145); Total Protein 5.7 g/dL (6.3-8.2)
[2017-03-19] MEDS: PULMICORT IH SCH ×2 (08:25→20:59)
[2017-03-19] MEDS: BROVANA NEBU IH SCH ×2 (08:25→20:59)
[2017-03-19] MEDS ORDERED: KINEVAC IV ONE ×3 (09:02→10:00)
[2017-03-19] MEDS ORDERED: WATER FOR INJ (PF) 10 ML ONE (09:04)
--- NOTE | 2017-03-19 09:13 | Progress Note ---
Assessment and Plan Assessment and plan: --Acute pancreatitis Improving, lipase and near-normal level, HIDA scan ordered ,surgery following MRCP findings noted, acalculous cholecystitis suspected Left portal venous thrombosis, focal pancreatitis, mass cannot be excluded Small left renal cyst. IR Vascular following for possible CT-guided drain placement as needed --Transaminitis; transaminases trending down, closely monitor --Hypoalbuminemia/moderate protein calorie malnutrition; secondary to underlying disease process Supportive care, nutrition supplements --Dyslipidemia; on lipid-lowering medications --Hypertension; well controlled, continue current antihypertensives and when necessary medications --History of bronchial asthma, stable oxygen titrated to O2 sats more than 90% as needed --Full CODE STATUS --DVT prophylaxis; continue Lovenox Closely monitor the patient didn't adjust management as needed Plan of care discussed with the patient's family member in the room History Interval history: Patient seen and evaluated this morning medical records reviewed Scheduled for HIDA scan, complaints of severe right upper quadrant pain Requesting for food, vital signs reviewed Hospitalist Physical - Constitutional Vitals: Temp Pulse Resp BP Pulse Ox 98.5 F 88 18 133/64 93 03/19/17 08:48 03/19/17 08:59 03/19/17 08:48 03/19/17 08:48 03/19/17 08:48 General appearance: Present: mild distress, well-nourished - EENT Eyes: Present: PERRL, EOM intact - Neck Neck: Present: supple, normal ROM - Respiratory Respiratory effort: normal Respiratory: bilateral: diminished, negative: rales, rhonchi, wheezing - Cardiovascular Rhythm: regular Heart Sounds: Present: S1 & S2 - Extremities Extremities: no ischemia, No edema - Abdominal General gastrointestinal: soft, tender (right upper quadrant ,no guarding no rigidity), normal bowel sounds - Integumentary Integumentary: Present: clear, warm - Psychiatric Psychiatric: appropriate mood/affect, cooperative - Neurologic Neurologic: CNII-XII intact, moves all extremities Results - Labs CBC & Chem 7: 03/17/17 15:15 03/19/17 04:59 Labs: Laboratory Last Values WBC 10.7 K/mm3 (4.5-11.0) 03/17/17 15:15 RBC 5.02 M/mm3 (3.65-5.03) 03/17/17 15:15 Hgb 13.9 gm/dl (10.1-14.3) 03/17/17 15:15 Hct 43.1 % (30.3-42.9) H 03/17/17 15:15 MCV 86 fl (79-97) 03/17/17 15:15 MCH 28 pg (28-32) 03/17/17 15:15 MCHC 32 % (30-34) 03/17/17 15:15 RDW 15.5 % (13.2-15.2) H 03/17/17 15:15 Plt Count 415 K/mm3 (140-440) 03/17/17 15:15 Lymph % (Auto) 7.2 % (13.4-35.0) L 03/17/17 15:15 [place] % (Auto) 6.1 % (0.0-7.3) 03/17/17 15:15 Eos % (Auto) 0.5 % (0.0-4.3) 03/17/17 15:15 Baso % (Auto) 0.5 % (0.0-1.8) 03/17/17 15:15 Lymph # 0.8 K/mm3 (1.2-5.4) L 03/17/17 15:15 [place] # 0.7 K/mm3 (0.0-0.8) 03/17/17 15:15 Eos # 0.1 K/mm3 (0.0-0.4) 03/17/17 15:15 Baso # 0.1 K/mm3 (0.0-0.1) 03/17/17 15:15 Seg Neutrophils % 85.7 % (40.0-70.0) H 03/17/17 15:15 Seg Neutrophils # 9.2 K/mm3 (1.8-7.7) H 03/17/17 15:15 PT 14.4 Sec. (12.2-14.9) 03/17/17 16:36 INR 1.13 (0.87-1.13) 03/17/17 16:36 APTT 29.1 Sec. (24.2-36.6) 03/17/17 16:36 Sodium 142 mmol/L (137-145) 03/19/17 04:59 Potassium 4.0 mmol/L (3.6-5.0) 03/19/17 04:59 Chloride 101.8 mmol/L (98-107) 03/19/17 04:59 Carbon Dioxide 30 mmol/L (22-30) D 03/19/17 04:59 Anion Gap 14 mmol/L 03/19/17 04:59 BUN 14 mg/dL (7-17) 03/19/17 04:59 Creatinine 0.5 mg/dL (0.7-1.2) L 03/19/17 04:59 Estimated GFR > 60 ml/min 03/19/17 04:59 BUN/Creatinine Ratio 28.00 % 03/19/17 04:59 Glucose 113 mg/dL (65-100) H 03/19/17 04:59 Lactic Acid 1.40 mmol/L (0.7-2.0) 03/17/17 16:36 Calcium 8.1 mg/dL (8.4-10.2) L 03/19/17 04:59 Magnesium 1.90 mg/dL (1.7-2.3) 03/17/17 16:36 Total Bilirubin 1.00 mg/dL (0.1-1.2) 03/19/17 04:59 Direct Bilirubin 0.8 mg/dL (0-0.2) H 03/17/17 15:15 Indirect Bilirubin 0.3 mg/dL 03/17/17 15:15 AST 53 units/L (5-40) H 03/19/17 04:59 ALT 106 units/L (7-56) H 03/19/17 04:59 Alkaline Phosphatase 142 units/L (35-129) H 03/19/17 04:59 Total Creatine Kinase 49 units/L (30-135) 03/17/17 16:36 CK-MB (CK-2) 2.0 ng/mL (0.0-4.0) 03/17/17 16:36 CK-MB (CK-2) Rel Index 4.0 (0-4) 03/17/17 16:36 Troponin T < 0.010 ng/mL (0.00-0.029) 03/17/17 21:17 NT-Pro-B Natriuret Pep 123.5 pg/mL (0-900) 03/17/17 16:36 Total Protein 5.7 g/dL (6.3-8.2) L 03/19/17 04:59 Albumin 2.9 g/dL (3.9-5) L 03/19/17 04:59 Albumin/Globulin Ratio 1.0 % 03/19/17 04:59 Amylase 53 units/L (27-131) 03/19/17 04:59 Lipase 71 units/L (13-60) H 03/19/17 04:59 Urine Color Yellow (Yellow) 03/17/17 13:40 Urine Turbidity Clear (Clear) 03/17/17 13:40 Urine pH 5.0 (5.0-7.0) 03/17/17 13:40 Ur Specific [place] 1.019 (1.003-1.030) 03/17/17 13:40 Urine Protein <15 mg/dl mg/dL (Negative) 03/17/17 13:40 Urine Glucose (UA) Neg mg/dL (Negative) 03/17/17 13:40 Urine Ketones Neg mg/dL (Negative) 03/17/17 13:40 Urine Blood Neg (Negative) 03/17/17 13:40 Urine Nitrite Neg (Negative) 03/17/17 13:40 Urine Bilirubin Neg (Negative) 03/17/17 13:40 Urine Urobilinogen < 2.0 mg/dL (<2.0) 03/17/17 13:40 Ur Leukocyte Esterase Neg (Negative) 03/17/17 13:40 Urine WBC (Auto) 3.0 /HPF (0.0-6.0) 03/17/17 13:40 Urine RBC (Auto) 3.0 /HPF (0.0-6.0) 03/17/17 13:40 U Epithel Cells (Auto) 4.0 /HPF (0-13.0) 03/17/17 13:40 Hyaline Casts 2 /LPF 03/17/17 13:40 Urine Mucus Few /HPF 03/17/17 13:40 Blood Type AB POSITIVE 03/17/17 16:36 Antibody Screen Negative 03/17/17 16:36
[2017-03-19] MEDS ORDERED: WATER FOR INJ (PF) IV ONE (10:00)
[2017-03-19] MEDS: PEPCID IV SCH ×2 (10:27→20:59)
[2017-03-19] MEDS: DILAUDID IV PRN ×2 (10:27→20:58)
[2017-03-19] MEDS: LOVENOX SUB-Q SCH (10:28)
--- NOTE | 2017-03-19 11:03 | Nuclear Medicine Report ---
Nuclear hepatobiliary scan with Kinevac: Right upper quadrant pain with eating. Following injection of radionuclide anterior imaging of the liver is grossly unremarkable. There is excretion identified into the gallbladder by 30 minutes and into the duodenum by one hour. Following injection of Kinevac the patient is experienced nausea and cramping similar to her usual symptoms. The gallbladder demonstrated maximum contraction of 21% at 15 minutes. Impressions: Normal biliary imaging with 21% gallbladder contraction.
--- NOTE | 2017-03-19 14:32 | Progress Note ---
Assessment and Plan Pt still c/o RUQ abd pain Abd soft. mild RUQ tenderess HIDA - GB fills in 30 min. 21% EF - so, theoretically this rules out acute cholecystitis. But pt still in pain. Would recommend to proceed with CT guided cholecystostomy tube drainage if pain persists and GB remains distended. Empiric Levaquin will repeat labs in am. {normal lipase noted). Selected Entries 03/19/17 12:29 Temperature 98.2 F Respiratory 18 Rate Blood Pressure 86/52 Objective Vital Signs - 12hr 03/19/17 03/19/17 03/19/17 05:00 05:18 08:43 Temperature 98.8 F 98.5 F Pulse Rate 92 H 92 H 93 H Respiratory 20 18 Rate Blood Pressure 143/68 133/64 O2 Sat by Pulse 94 93 Oximetry 03/19/17 03/19/17 03/19/17 08:48 08:59 12:29 Temperature 98.5 F 98.2 F Pulse Rate 93 H 88 Respiratory 18 18 Rate Blood Pressure 133/64 86/52 O2 Sat by Pulse 93 94 Oximetry - Labs 03/17/17 15:15 03/19/17 04:59 Diabetes panel 03/19/17 Range/Units 04:59 Sodium 142 (137-145) mmol/L Potassium 4.0 (3.6-5.0) mmol/L Chloride 101.8 (98-107) mmol/L Carbon Dioxide 30 D (22-30) mmol/L BUN 14 (7-17) mg/dL Creatinine 0.5 L (0.7-1.2) mg/dL Glucose 113 H (65-100) mg/dL Calcium 8.1 L (8.4-10.2) mg/dL AST 53 H (5-40) units/L ALT 106 H (7-56) units/L Alkaline Phosphatase 142 H (35-129) units/L Total Protein 5.7 L (6.3-8.2) g/dL Albumin 2.9 L (3.9-5) g/dL Calcium panel 03/19/17 Range/Units 04:59 Calcium 8.1 L (8.4-10.2) mg/dL Albumin 2.9 L (3.9-5) g/dL Pituitary panel 03/19/17 Range/Units 04:59 Sodium 142 (137-145) mmol/L Potassium 4.0 (3.6-5.0) mmol/L Chloride 101.8 (98-107) mmol/L Carbon Dioxide 30 D (22-30) mmol/L BUN 14 (7-17) mg/dL Creatinine 0.5 L (0.7-1.2) mg/dL Glucose 113 H (65-100) mg/dL Calcium 8.1 L (8.4-10.2) mg/dL Adrenal panel 03/19/17 Range/Units 04:59 Sodium 142 (137-145) mmol/L Potassium 4.0 (3.6-5.0) mmol/L Chloride 101.8 (98-107) mmol/L Carbon Dioxide 30 D (22-30) mmol/L BUN 14 (7-17) mg/dL Creatinine 0.5 L (0.7-1.2) mg/dL Glucose 113 H (65-100) mg/dL Calcium 8.1 L (8.4-10.2) mg/dL Total Bilirubin 1.00 (0.1-1.2) mg/dL AST 53 H (5-40) units/L ALT 106 H (7-56) units/L Alkaline Phosphatase 142 H (35-129) units/L Total Protein 5.7 L (6.3-8.2) g/dL Albumin 2.9 L (3.9-5) g/dL
--- NOTE | 2017-03-19 14:46 | Event Note ---
Date: 03/19/17 HIDA scan; normal BNP imaging with 21% gallbladder contraction Discussed with surgeon Recommend CT-guided cholecystostomy tube drainage, IR vascular following the patient PICC tube Placement and PPN
[2017-03-20] MEDS: DILAUDID IV PRN ×3 (06:01→22:18)
[2017-03-20 07:18] LABS: Basophils % (Auto) 0.6 % (0.0-1.8); Eosinophils % (Auto) 0.5 % (0.0-4.3); Hematocrit 36.3 % (30.3-42.9); Hemoglobin 12.1 gm/dl (10.1-14.3); Mean Corpuscular HGB Conc 33 % (30-34); Mean Corpuscular Hemoglobin 28 pg (28-32); Mean Corpuscular Volume 85 fl (79-97); Platelet Count 337 K/mm3 (140-440); Red Blood Count 4.25 M/mm3 (3.65-5.03); Red Cell Distribution Width 15.3 % (13.2-15.2); White Blood Count 11.2 K/mm3 (4.5-11.0)
[2017-03-20 07:24] LABS: Alanine Aminotransferase 71 units/L (7-56); Albumin 2.8 g/dL (3.9-5); Albumin/Globulin Ratio 0.8 %; Alkaline Phosphatase 141 units/L (35-129); Anion Gap 15 mmol/L; Blood Urea Nitrogen 14 mg/dL (7-17); Calcium 8.4 mg/dL (8.4-10.2); Carbon Dioxide 29 mmol/L (22-30); Chloride 104.2 mmol/L (98-107); Glucose 97 mg/dL (65-100); Potassium 3.2 mmol/L (3.6-5.0); Sodium 145 mmol/L (137-145); Total Protein 6.1 g/dL (6.3-8.2)
[2017-03-20] MEDS: PULMICORT IH SCH ×2 (08:01→20:04)
[2017-03-20] MEDS: BROVANA NEBU IH SCH ×2 (08:01→20:04)
--- NOTE | 2017-03-20 08:29 | Progress Note ---
Assessment and Plan Assessment and plan: --Possible CT-guided cholecystostomy tube drainage today per surgery However patient is feeling much better today, tolerating ice chips May consider clear liquids and observe MRCP findings noted, acalculous cholecystitis suspected Left portal venous thrombosis, focal pancreatitis, mass cannot be excluded Small left renal cyst. IR Vascular following for possible CT-guided drain placement if needed --Acute pancreatitis lipase and near-normal level, HIDA scan findings noted --Transaminitis; transaminases trending down, closely monitor --Hypoalbuminemia/moderate protein calorie malnutrition; secondary to underlying disease process Supportive care, nutrition supplements --Dyslipidemia; on lipid-lowering medications --Hypertension; well controlled, continue current antihypertensives and when necessary medications --History of bronchial asthma, stable oxygen titrated to O2 sats more than 90% as needed --Full CODE STATUS --DVT prophylaxis; continue Lovenox Closely monitor the patient didn't adjust management as needed Plan of care discussed with the patient's family member in the room History Interval history: Patient feels slightly better, abdominal pain significantly improved Tolerating ice chips Alert awake responding appropriately not in acute distress Hospitalist Physical - Constitutional Vitals: Temp Pulse Resp BP Pulse Ox 98.4 F 83 24 144/65 95 03/20/17 04:55 03/20/17 04:55 03/20/17 04:55 03/20/17 04:55 03/20/17 04:55 General appearance: Present: no acute distress, well-nourished - EENT Eyes: Present: PERRL, EOM intact - Neck Neck: Present: supple, normal ROM - Respiratory Respiratory effort: normal Respiratory: negative: rales, rhonchi, wheezing - Cardiovascular Rhythm: regular Heart Sounds: Present: S1 & S2 - Extremities Extremities: no ischemia, No edema - Abdominal General gastrointestinal: soft, non-tender, non-distended - Integumentary Integumentary: Present: clear, warm - Psychiatric Psychiatric: appropriate mood/affect, cooperative - Neurologic Neurologic: CNII-XII intact, moves all extremities Results - Labs CBC & Chem 7: 03/20/17 05:57 03/20/17 05:57 Labs: Laboratory Last Values WBC 11.2 K/mm3 (4.5-11.0) H 03/20/17 05:57 RBC 4.25 M/mm3 (3.65-5.03) 03/20/17 05:57 Hgb 12.1 gm/dl (10.1-14.3) 03/20/17 05:57 Hct 36.3 % (30.3-42.9) D 03/20/17 05:57 MCV 85 fl (79-97) 03/20/17 05:57 MCH 28 pg (28-32) 03/20/17 05:57 MCHC 33 % (30-34) 03/20/17 05:57 RDW 15.3 % (13.2-15.2) H 03/20/17 05:57 Plt Count 337 K/mm3 (140-440) 03/20/17 05:57 Lymph % (Auto) 7.4 % (13.4-35.0) L 03/20/17 05:57 [place] % (Auto) 7.2 % (0.0-7.3) 03/20/17 05:57 Eos % (Auto) 0.5 % (0.0-4.3) 03/20/17 05:57 Baso % (Auto) 0.6 % (0.0-1.8) 03/20/17 05:57 Lymph # 0.8 K/mm3 (1.2-5.4) L 03/20/17 05:57 [place] # 0.8 K/mm3 (0.0-0.8) 03/20/17 05:57 Eos # 0.1 K/mm3 (0.0-0.4) 03/20/17 05:57 Baso # 0.1 K/mm3 (0.0-0.1) 03/20/17 05:57 Seg Neutrophils % 84.3 % (40.0-70.0) H 03/20/17 05:57 Seg Neutrophils # 9.4 K/mm3 (1.8-7.7) H 03/20/17 05:57 PT 14.4 Sec. (12.2-14.9) 03/17/17 16:36 INR 1.13 (0.87-1.13) 03/17/17 16:36 APTT 29.1 Sec. (24.2-36.6) 03/17/17 16:36 Sodium 145 mmol/L (137-145) 03/20/17 05:57 Potassium 3.2 mmol/L (3.6-5.0) L 03/20/17 05:57 Chloride 104.2 mmol/L (98-107) 03/20/17 05:57 Carbon Dioxide 29 mmol/L (22-30) 03/20/17 05:57 Anion Gap 15 mmol/L 03/20/17 05:57 BUN 14 mg/dL (7-17) 03/20/17 05:57 Creatinine 0.4 mg/dL (0.7-1.2) L 03/20/17 05:57 Estimated GFR > 60 ml/min 03/20/17 05:57 BUN/Creatinine Ratio 35.00 % 03/20/17 05:57 Glucose 97 mg/dL (65-100) 03/20/17 05:57 Lactic Acid 1.40 mmol/L (0.7-2.0) 03/17/17 16:36 Calcium 8.4 mg/dL (8.4-10.2) 03/20/17 05:57 Magnesium 1.90 mg/dL (1.7-2.3) 03/17/17 16:36 Total Bilirubin 1.40 mg/dL (0.1-1.2) H 03/20/17 05:57 Direct Bilirubin 0.8 mg/dL (0-0.2) H 03/17/17 15:15 Indirect Bilirubin 0.3 mg/dL 03/17/17 15:15 AST 31 units/L (5-40) 03/20/17 05:57 ALT 71 units/L (7-56) H 03/20/17 05:57 Alkaline Phosphatase 141 units/L (35-129) H 03/20/17 05:57 Total Creatine Kinase 49 units/L (30-135) 03/17/17 16:36 CK-MB (CK-2) 2.0 ng/mL (0.0-4.0) 03/17/17 16:36 CK-MB (CK-2) Rel Index 4.0 (0-4) 03/17/17 16:36 Troponin T < 0.010 ng/mL (0.00-0.029) 03/17/17 21:17 NT-Pro-B Natriuret Pep 123.5 pg/mL (0-900) 03/17/17 16:36 Total Protein 6.1 g/dL (6.3-8.2) L 03/20/17 05:57 Albumin 2.8 g/dL (3.9-5) L 03/20/17 05:57 Albumin/Globulin Ratio 0.8 % 03/20/17 05:57 Amylase 53 units/L (27-131) 03/19/17 04:59 Lipase 71 units/L (13-60) H 03/19/17 04:59 Urine Color Yellow (Yellow) 03/17/17 13:40 Urine Turbidity Clear (Clear) 03/17/17 13:40 Urine pH 5.0 (5.0-7.0) 03/17/17 13:40 Ur Specific [place] 1.019 (1.003-1.030) 03/17/17 13:40 Urine Protein <15 mg/dl mg/dL (Negative) 03/17/17 13:40 Urine Glucose (UA) Neg mg/dL (Negative) 03/17/17 13:40 Urine Ketones Neg mg/dL (Negative) 03/17/17 13:40 Urine Blood Neg (Negative) 03/17/17 13:40 Urine Nitrite Neg (Negative) 03/17/17 13:40 Urine Bilirubin Neg (Negative) 03/17/17 13:40 Urine Urobilinogen < 2.0 mg/dL (<2.0) 03/17/17 13:40 Ur Leukocyte Esterase Neg (Negative) 03/17/17 13:40 Urine WBC (Auto) 3.0 /HPF (0.0-6.0) 03/17/17 13:40 Urine RBC (Auto) 3.0 /HPF (0.0-6.0) 03/17/17 13:40 U Epithel Cells (Auto) 4.0 /HPF (0-13.0) 03/17/17 13:40 Hyaline Casts 2 /LPF 03/17/17 13:40 Urine Mucus Few /HPF 03/17/17 13:40 Blood Type AB POSITIVE 03/17/17 16:36 Antibody Screen Negative 03/17/17 16:36
[2017-03-20] MEDS ORDERED: LEVAQUIN 500MG/100ML 500 MG/100 ML BAG IV SCH (10:00)
[2017-03-20] MEDS: D5NS 1,000 ML IV SCH (11:58)
[2017-03-20] MEDS: PEPCID IV SCH ×2 (12:00→22:19)
[2017-03-20] MEDS: LOVENOX SUB-Q SCH (12:02)
[2017-03-20] MEDS: LEVAQUIN 750MG/150ML 750 MG/150 ML BAG IV SCH (12:04)
--- NOTE | 2017-03-20 12:26 | XRay Report ---
AP CHEST: HISTORY: PICC placement A left arm PICC has been inserted which terminates at the cavoatrial junction. Increased pulmonary venous congestion and small pleural effusions have developed since 03/17/17. Heart size is borderline. A large hiatal hernia is suspected. IMPRESSION: Adequate placement of the left arm PICC. Mild volume overload.
--- NOTE | 2017-03-20 13:09 | Event Note ---
Date: 03/20/17 87-year-old female who has right upper quadrant pain with consult for possible cholecystostomy tube. HIDA scan demonstrates normal biliary uptake excluding biliary obstruction. There is biliary dyskinesia manifested by low ejection fraction. Patient had elevated lipase which has declined. She has had significant decrease in right upper quadrant pain since yesterday and is feeling better. HIDA scan excludes acute cholecystitis. Patient likely has gallstone pancreatitis. Patient has biliary dyskinesia, and possibly a component of chronic cholecystitis. Given symptomatic improvement, hopefully patient will be able to avoid cholecystostomy tube. Discussed with Dr. Celeste. If clinical picture/ examination changes, cholecystostomy tube can be reconsidered.
--- NOTE | 2017-03-20 13:20 | Progress Note ---
Assessment and Plan Pt feeling much better today. no narcotics since 6 am. less pain Abd soft. minimal abd tenderness labs as below. IR eval appreciated surgically stable resolving biliary pancreatitis? chronic cholecystitis with biliary dyskenesia component? clinically improving will attempt cl liq diet Selected Entries 03/20/17 08:00 Temperature 97.9 F Pulse Rate 76 Respiratory 20 Rate Blood Pressure 125/69 Laboratory Tests 03/19/17 03/20/17 03/20/17 04:59 05:57 05:57 WBC 11.2 H Hgb 12.1 Hct 36.3 D Sodium 145 Potassium 3.2 L Chloride 104.2 Carbon Dioxide 29 Anion Gap 15 BUN 14 Creatinine 0.4 L Amylase 53 Lipase 71 H Objective Vital Signs - 12hr 03/20/17 03/20/17 04:55 08:00 Temperature 98.4 F 97.9 F Pulse Rate 83 76 Respiratory 24 20 Rate Blood Pressure 144/65 125/69 O2 Sat by Pulse 95 95 Oximetry - Labs 03/20/17 05:57 03/20/17 05:57 Diabetes panel 03/20/17 Range/Units 05:57 Sodium 145 (137-145) mmol/L Potassium 3.2 L (3.6-5.0) mmol/L Chloride 104.2 (98-107) mmol/L Carbon Dioxide 29 (22-30) mmol/L BUN 14 (7-17) mg/dL Creatinine 0.4 L (0.7-1.2) mg/dL Glucose 97 (65-100) mg/dL Calcium 8.4 (8.4-10.2) mg/dL AST 31 (5-40) units/L ALT 71 H (7-56) units/L Alkaline Phosphatase 141 H (35-129) units/L Total Protein 6.1 L (6.3-8.2) g/dL Albumin 2.8 L (3.9-5) g/dL Calcium panel 03/20/17 Range/Units 05:57 Calcium 8.4 (8.4-10.2) mg/dL Albumin 2.8 L (3.9-5) g/dL Pituitary panel 03/20/17 Range/Units 05:57 Sodium 145 (137-145) mmol/L Potassium 3.2 L (3.6-5.0) mmol/L Chloride 104.2 (98-107) mmol/L Carbon Dioxide 29 (22-30) mmol/L BUN 14 (7-17) mg/dL Creatinine 0.4 L (0.7-1.2) mg/dL Glucose 97 (65-100) mg/dL Calcium 8.4 (8.4-10.2) mg/dL Adrenal panel 03/20/17 Range/Units 05:57 Sodium 145 (137-145) mmol/L Potassium 3.2 L (3.6-5.0) mmol/L Chloride 104.2 (98-107) mmol/L Carbon Dioxide 29 (22-30) mmol/L BUN 14 (7-17) mg/dL Creatinine 0.4 L (0.7-1.2) mg/dL Glucose 97 (65-100) mg/dL Calcium 8.4 (8.4-10.2) mg/dL Total Bilirubin 1.40 H (0.1-1.2) mg/dL AST 31 (5-40) units/L ALT 71 H (7-56) units/L Alkaline Phosphatase 141 H (35-129) units/L Total Protein 6.1 L (6.3-8.2) g/dL Albumin 2.8 L (3.9-5) g/dL
[2017-03-20] MEDS: KCL 10MEQ/100ML 10 MEQ/100 ML BAG IV SCH ×4 (13:39→17:16)
[2017-03-20] MEDS ORDERED: TPN ADULT 2,016 ML IV SCH (20:00)
[2017-03-21] MEDS ORDERED: DILAUDID IV PRN ×2 (06:35→06:37)
[2017-03-21] MEDS: PULMICORT IH SCH ×2 (07:17→19:51)
[2017-03-21] MEDS: BROVANA NEBU IH SCH ×2 (07:17→19:51)
[2017-03-21 08:32] LABS: Anion Gap 14 mmol/L; BUN/Creatinine Ratio 46.66; Blood Urea Nitrogen 14 mg/dL (7-17); Calcium 8.1 mg/dL (8.4-10.2); Carbon Dioxide 29 mmol/L (22-30); Chloride 101.6 mmol/L (98-107); Glucose 113 mg/dL (65-100); Potassium 3.7 mmol/L (3.6-5.0); Sodium 141 mmol/L (137-145)
[2017-03-21] MEDS ORDERED: KPHOS 40 MMOL in NACL 0.9% 500 ML 500 ML IV ONE (11:09)
--- NOTE | 2017-03-21 11:11 | Progress Note ---
Assessment and Plan Assessment and plan: --Hypophosphatemia; replace with K-Phos IV, monitor phosphate level --CT-guided cholecystostomy is held as patient is doing better Clear liquid diet and advance as tolerated --Moderate to severe protein calorie malnutrition; nutrition supplements and supportive care MRCP findings noted, acalculous cholecystitis suspected Left portal venous thrombosis, focal pancreatitis, mass cannot be excluded Small left renal cyst. --Acute pancreatitis lipase and near-normal level, HIDA scan findings noted --Transaminitis; transaminases trending down, closely monitor --Dyslipidemia; on lipid-lowering medications --Hypertension; well controlled, continue current antihypertensives and when necessary medications --History of bronchial asthma, stable oxygen titrated to O2 sats more than 90% , duoneb as needed --Full CODE STATUS --DVT prophylaxis; continue Lovenox Closely monitor the patient and adjust management as needed Plan of care discussed with the patient's family member in the room History Interval history: Patient has no new complaints Tolerating clear liquids, received PPN 1 day Abdominal pain significantly improved Hospitalist Physical - Constitutional Vitals: Temp Pulse Resp BP Pulse Ox 98.5 F 85 20 131/74 95 03/21/17 08:06 03/21/17 08:06 03/21/17 08:06 03/21/17 08:06 03/21/17 08:06 General appearance: Present: no acute distress, well-nourished - EENT Eyes: Present: PERRL, EOM intact - Neck Neck: Present: supple, normal ROM - Respiratory Respiratory effort: normal Respiratory: bilateral: diminished, negative: rales, rhonchi, wheezing - Cardiovascular Rhythm: regular Heart Sounds: Present: S1 & S2 - Extremities Extremities: no ischemia, pulses intact, pulses symmetrical Peripheral Pulses: within normal limits - Abdominal General gastrointestinal: soft, non-tender, non-distended, normal bowel sounds - Integumentary Integumentary: Present: clear, warm - Psychiatric Psychiatric: appropriate mood/affect, cooperative - Neurologic Neurologic: CNII-XII intact, moves all extremities Results - Labs CBC & Chem 7: 03/20/17 05:57 03/21/17 07:43 Labs: Laboratory Last Values WBC 11.2 K/mm3 (4.5-11.0) H 03/20/17 05:57 RBC 4.25 M/mm3 (3.65-5.03) 03/20/17 05:57 Hgb 12.1 gm/dl (10.1-14.3) 03/20/17 05:57 Hct 36.3 % (30.3-42.9) D 03/20/17 05:57 MCV 85 fl (79-97) 03/20/17 05:57 MCH 28 pg (28-32) 03/20/17 05:57 MCHC 33 % (30-34) 03/20/17 05:57 RDW 15.3 % (13.2-15.2) H 03/20/17 05:57 Plt Count 337 K/mm3 (140-440) 03/20/17 05:57 Lymph % (Auto) 7.4 % (13.4-35.0) L 03/20/17 05:57 [place] % (Auto) 7.2 % (0.0-7.3) 03/20/17 05:57 Eos % (Auto) 0.5 % (0.0-4.3) 03/20/17 05:57 Baso % (Auto) 0.6 % (0.0-1.8) 03/20/17 05:57 Lymph # 0.8 K/mm3 (1.2-5.4) L 03/20/17 05:57 [place] # 0.8 K/mm3 (0.0-0.8) 03/20/17 05:57 Eos # 0.1 K/mm3 (0.0-0.4) 03/20/17 05:57 Baso # 0.1 K/mm3 (0.0-0.1) 03/20/17 05:57 Seg Neutrophils % 84.3 % (40.0-70.0) H 03/20/17 05:57 Seg Neutrophils # 9.4 K/mm3 (1.8-7.7) H 03/20/17 05:57 PT 14.4 Sec. (12.2-14.9) 03/17/17 16:36 INR 1.13 (0.87-1.13) 03/17/17 16:36 APTT 29.1 Sec. (24.2-36.6) 03/17/17 16:36 Sodium 141 mmol/L (137-145) 03/21/17 07:43 Potassium 3.7 mmol/L (3.6-5.0) 03/21/17 07:43 Chloride 101.6 mmol/L (98-107) 03/21/17 07:43 Carbon Dioxide 29 mmol/L (22-30) 03/21/17 07:43 Anion Gap 14 mmol/L 03/21/17 07:43 BUN 14 mg/dL (7-17) 03/21/17 07:43 Creatinine 0.3 mg/dL (0.7-1.2) L 03/21/17 07:43 Estimated GFR > 60 ml/min 03/21/17 07:43 BUN/Creatinine Ratio 46.66 % 03/21/17 07:43 Glucose 113 mg/dL (65-100) H 03/21/17 07:43 Lactic Acid 1.40 mmol/L (0.7-2.0) 03/17/17 16:36 Calcium 8.1 mg/dL (8.4-10.2) L 03/21/17 07:43 Phosphorus 1.50 mg/dL (2.5-4.5) L 03/21/17 07:43 Magnesium 2.10 mg/dL (1.7-2.3) 03/21/17 07:43 Total Bilirubin 1.40 mg/dL (0.1-1.2) H 03/20/17 05:57 Direct Bilirubin 0.8 mg/dL (0-0.2) H 03/17/17 15:15 Indirect Bilirubin 0.3 mg/dL 03/17/17 15:15 AST 31 units/L (5-40) 03/20/17 05:57 ALT 71 units/L (7-56) H 03/20/17 05:57 Alkaline Phosphatase 141 units/L (35-129) H 03/20/17 05:57 Total Creatine Kinase 49 units/L (30-135) 03/17/17 16:36 CK-MB (CK-2) 2.0 ng/mL (0.0-4.0) 03/17/17 16:36 CK-MB (CK-2) Rel Index 4.0 (0-4) 03/17/17 16:36 Troponin T < 0.010 ng/mL (0.00-0.029) 03/17/17 21:17 NT-Pro-B Natriuret Pep 123.5 pg/mL (0-900) 03/17/17 16:36 Total Protein 6.1 g/dL (6.3-8.2) L 03/20/17 05:57 Albumin 2.8 g/dL (3.9-5) L 03/20/17 05:57 Albumin/Globulin Ratio 0.8 % 03/20/17 05:57 Amylase 53 units/L (27-131) 03/19/17 04:59 Lipase 71 units/L (13-60) H 03/19/17 04:59 Urine Color Yellow (Yellow) 03/17/17 13:40 Urine Turbidity Clear (Clear) 03/17/17 13:40 Urine pH 5.0 (5.0-7.0) 03/17/17 13:40 Ur Specific [place] 1.019 (1.003-1.030) 03/17/17 13:40 Urine Protein <15 mg/dl mg/dL (Negative) 03/17/17 13:40 Urine Glucose (UA) Neg mg/dL (Negative) 03/17/17 13:40 Urine Ketones Neg mg/dL (Negative) 03/17/17 13:40 Urine Blood Neg (Negative) 03/17/17 13:40 Urine Nitrite Neg (Negative) 03/17/17 13:40 Urine Bilirubin Neg (Negative) 03/17/17 13:40 Urine Urobilinogen < 2.0 mg/dL (<2.0) 03/17/17 13:40 Ur Leukocyte Esterase Neg (Negative) 03/17/17 13:40 Urine WBC (Auto) 3.0 /HPF (0.0-6.0) 03/17/17 13:40 Urine RBC (Auto) 3.0 /HPF (0.0-6.0) 03/17/17 13:40 U Epithel Cells (Auto) 4.0 /HPF (0-13.0) 03/17/17 13:40 Hyaline Casts 2 /LPF 03/17/17 13:40 Urine Mucus Few /HPF 03/17/17 13:40 Blood Type AB POSITIVE 03/17/17 16:36 Antibody Screen Negative 03/17/17 16:36
[2017-03-21] MEDS: PEPCID IV SCH ×2 (11:50→21:06)
[2017-03-21] MEDS: LOVENOX SUB-Q SCH (11:51)
[2017-03-21] MEDS: PROVENTIL IH PRN ×2 (14:42→20:04)
[2017-03-21] MEDS: DILAUDID IV PRN ×2 (15:05→21:15)
--- NOTE | 2017-03-21 18:31 | Progress Note ---
Assessment and Plan Pt feeling "O.K." still c/o non specific R lower chest pain. SOB occ wheezing. dayanna diet. has been advanced to soft diet Abd soft surgically status quo. pulm eval will monitor tolerance to soft diet and follow clinically await pulm eval findings may need f/u CT of abd if pain persists. may need GB drainage if GB continues to be distended and symptoms persist. continue empiric Levaquin Selected Entries 03/21/17 03/21/17 14:52 17:00 Temperature 98.0 F Pulse Rate [ 83 Anterior Bilateral Throughout] Respiratory 20 Rate [Anterior Bilateral Throughout] Blood Pressure 110/65 [Left] Objective Vital Signs - 12hr 03/21/17 03/21/17 03/21/17 06:52 07:17 07:26 Temperature 98.4 F Pulse Rate Pulse Rate [ 86 Anterior Bilateral Throughout] Respiratory 20 Rate Respiratory 18 Rate [Anterior Bilateral Throughout] Blood Pressure [Left] O2 Sat by Pulse 95 Oximetry 03/21/17 03/21/17 03/21/17 07:27 08:06 12:00 Temperature 98.5 F 97.6 F Pulse Rate 85 42 L Pulse Rate [ 89 Anterior Bilateral Throughout] Respiratory 20 20 Rate Respiratory 20 Rate [Anterior Bilateral Throughout] Blood Pressure 131/74 128/60 [Left] O2 Sat by Pulse 95 91 Oximetry 03/21/17 03/21/17 03/21/17 14:42 14:52 17:00 Temperature 98.0 F Pulse Rate 124 H Pulse Rate [ 85 83 Anterior Bilateral Throughout] Respiratory Rate Respiratory 20 20 Rate [Anterior Bilateral Throughout] Blood Pressure 110/65 [Left] O2 Sat by Pulse Oximetry - Labs 03/20/17 05:57 03/21/17 07:43 Diabetes panel 03/21/17 Range/Units 07:43 Sodium 141 (137-145) mmol/L Potassium 3.7 (3.6-5.0) mmol/L Chloride 101.6 (98-107) mmol/L Carbon Dioxide 29 (22-30) mmol/L BUN 14 (7-17) mg/dL Creatinine 0.3 L (0.7-1.2) mg/dL Glucose 113 H (65-100) mg/dL Calcium 8.1 L (8.4-10.2) mg/dL Calcium panel 03/21/17 Range/Units 07:43 Calcium 8.1 L (8.4-10.2) mg/dL Phosphorus 1.50 L (2.5-4.5) mg/dL Pituitary panel 03/21/17 Range/Units 07:43 Sodium 141 (137-145) mmol/L Potassium 3.7 (3.6-5.0) mmol/L Chloride 101.6 (98-107) mmol/L Carbon Dioxide 29 (22-30) mmol/L BUN 14 (7-17) mg/dL Creatinine 0.3 L (0.7-1.2) mg/dL Glucose 113 H (65-100) mg/dL Calcium 8.1 L (8.4-10.2) mg/dL Adrenal panel 03/21/17 Range/Units 07:43 Sodium 141 (137-145) mmol/L Potassium 3.7 (3.6-5.0) mmol/L Chloride 101.6 (98-107) mmol/L Carbon Dioxide 29 (22-30) mmol/L BUN 14 (7-17) mg/dL Creatinine 0.3 L (0.7-1.2) mg/dL Glucose 113 H (65-100) mg/dL Calcium 8.1 L (8.4-10.2) mg/dL
[2017-03-22] MEDS: DILAUDID IV PRN ×3 (04:16→23:57)
[2017-03-22] MEDS: PROVENTIL IH PRN (04:51)
[2017-03-22] MEDS: PULMICORT IH SCH ×2 (07:09→19:33)
[2017-03-22] MEDS: BROVANA NEBU IH SCH ×2 (07:09→19:33)
--- NOTE | 2017-03-22 09:05 | Consultation ---
History of Present Illness Consult date: 03/22/17 Requesting physician: ALFRED RILEY Reason for consult: asthma, other (wheezing) History of present illness: 87 y/o female with known asthma, followed by Dr. Leroy, admitted several days ago with abdominal pain. Concern for cholecystitis. Yesterday surgery noticed wheezing so consulted us for help with managment. Patient is being followed by the hospitalist group as well. She takes advair at home and is not on home oxygen. CXR reveals volume overload and small right pleural effusion. Effusion could be associated with gall bladder disease. No sick contacts. No cough. No fever. Remainder is negative. Past History Past Medical History: hypertension, hyperlipidemia, other (asthma) Social history: no significant social history Family history: no significant family history Medications and Allergies Allergies Allergy/AdvReac Type Severity Reaction Status Date / Time No Known Allergies Allergy Unverified 07/21/13 20:48 Home Medications Medication Instructions Recorded Confirmed Last Taken Type Fluticasone/Salmeterol [Advair 1 puff IH BID 03/17/17 03/17/17 Unknown History Diskus 250-50 mcg] Hydrochlorothiazide [Hctz] 12.5 mg PO QDAY 03/17/17 03/17/17 03/17/17 History Simvastatin [Zocor TAB] 20 mg PO QHS 03/17/17 03/17/17 03/17/17 History hydrALAZINE [Apresoline] 25 mg PO BID 03/17/17 03/17/17 03/17/17 History Active Meds: Active Medications Acetaminophen (Tylenol) 650 mg PO Q4H PRN PRN Reason: Pain MILD(1-3)/Fever >100.5/NARVAEZ Albuterol (Proventil) 2.5 mg IH Q4H PRN PRN Reason: Shortness Of Breath Last Admin: 03/22/17 04:51 Dose: 2.5 mg Arformoterol Tartrate (Brovana Nebu) 15 mcg IH Q12HRT [facility] Last Admin: 03/22/17 07:09 Dose: 15 mcg Bisacodyl (Dulcolax) 10 mg MD QDAY PRN PRN Reason: Constipation unrelieved by MOM Budesonide (Pulmicort) 0.5 mg IH Q12HRT [facility] Last Admin: 03/22/17 07:09 Dose: 0.5 mg Clonidine HCl (Catapres-Tts Patch) 0.1 mg TD We [facility] Last Admin: 03/18/17 11:01 Dose: 0.1 mg Enoxaparin Sodium (Lovenox) 40 mg SUB-Q QDAY [facility] Last Admin: 03/21/17 11:51 Dose: 40 mg Famotidine (Pepcid) 20 mg IV BID [facility] Last Admin: 03/21/17 21:06 Dose: 20 mg Hydromorphone HCl (Dilaudid) 2 mg IV Q3H PRN PRN Reason: Pain , Severe (7-10) Last Admin: 03/22/17 04:16 Dose: 2 mg Levofloxacin/Dextrose (Levaquin 750mg/150ml) 750 mg in 150 mls @ 150 mls/hr IV Q48H [facility] PRN Reason: Protocol Last Admin: 03/20/17 12:04 Dose: 150 mls/hr Magnesium Hydroxide (Milk Of Magnesia) 30 ml PO Q4H PRN PRN Reason: Constipation Last Admin: 03/21/17 06:24 Dose: 30 ml Ondansetron HCl (Zofran) 4 mg IV Q3H PRN PRN Reason: N/V unrelieved by Mily Last Admin: 03/18/17 16:02 Dose: 4 mg Review of Systems All systems: negative Physical Examination Vital signs: Vital Signs BP 180/78 03/17/17 14:47 General appearance: no acute distress, alert Eyes: non-icteric ENT: oropharynx moist Neck: supple Effort: normal Ascultation: Bilateral: rales Percussion: Right: not dull Cardiovascular: regular rate and rhythm Gastrointestinal: normoactive bowel sounds Integumentary: normal Extremities: edema (of the upper extremities) Musculoskeletal: no deformities normal mental status, non-focal exam mood appropriate Results - Laboratory Findings CBC and BMP: 03/20/17 05:57 03/21/17 07:43 PT/INR, D-dimer PT 14.4 Sec. (12.2-14.9) 03/17/17 16:36 INR 1.13 (0.87-1.13) 03/17/17 16:36 Abnormal lab findings: Abnormal Labs 03/19/17 03/20/17 03/20/17 04:59 05:57 05:57 WBC 11.2 H RDW 15.3 H Lymph % (Auto) 7.4 L Lymph # 0.8 L Seg Neutrophils % 84.3 H Seg Neutrophils # 9.4 H Potassium 3.2 L Creatinine 0.5 L 0.4 L Glucose 113 H Calcium 8.1 L Phosphorus Total Bilirubin 1.40 H AST 53 H ALT 106 H 71 H Alkaline Phosphatase 142 H 141 H Total Protein 5.7 L 6.1 L Albumin 2.9 L 2.8 L Lipase 71 H 03/21/17 07:43 WBC RDW Lymph % (Auto) Lymph # Seg Neutrophils % Seg Neutrophils # Potassium Creatinine 0.3 L Glucose 113 H Calcium 8.1 L Phosphorus 1.50 L Total Bilirubin AST ALT Alkaline Phosphatase Total Protein Albumin Lipase - Diagnostic Findings Chest x-ray: image reviewed (CXR as stated in HPI) Assessment and Plan 87 y/o female, originally admitted with abdominal pain status post drain for gall bladder disease now with mild asthma flare and acute respiratory failure secondary to volume overload. 1. lasix 20mg IV x1 2. Solumedrol 20mg IV q8 hours starting now 3. Continue Pulmicort and Brovana 4. PRN neb therapy 5. OOB to chair and mobilize as much as possible 6. Incentive marisol to bedside 7. Wean FiO2 for sats >88% Thank you for this consult, will continue to follow along with you.
--- NOTE | 2017-03-22 09:26 | Progress Note ---
Assessment and Plan Assessment and plan: --Mild shortness of breath and these. Probably secondary to fluid overload Chest x-ray mild fluid overload, low-dose IV Lasix, echocardiogram for left ventricular function ejection fraction DC IV fluids,duonebs as needed, low-dose steroids, pulmonary evaluation noted and appreciated --Hypophosphatemia; replaced, monitor levels --CT-guided cholecystostomy is held Advance diet as tolerated, no need for TPN --Moderate to severe protein calorie malnutrition; nutrition supplements and supportive care MRCP findings noted, acalculous cholecystitis suspected Left portal venous thrombosis, focal pancreatitis, mass cannot be excluded Small left renal cyst. --Acute pancreatitis lipase and near-normal level, HIDA scan findings noted --Transaminitis; transaminases trending down, closely monitor --Dyslipidemia; on lipid-lowering medications --Hypertension; well controlled, continue current antihypertensives and when necessary medications --History of bronchial asthma, stable oxygen titrated to O2 sats more than 90% , duoneb as needed --Full CODE STATUS --DVT prophylaxis; continue Lovenox Closely monitor the patient and adjust management as needed Plan of care discussed with the patient and her family member in the room History Interval history: Patient feels better, cheerful Abdominal pain significantly improved Denies nausea vomiting Mild shortness of breath and wheeze Hospitalist Physical - Constitutional Vitals: Temp Pulse Resp BP Pulse Ox 97.8 F 93 H 20 135/76 96 03/22/17 08:39 03/22/17 08:39 03/22/17 08:39 03/22/17 08:39 03/22/17 08:39 General appearance: Present: no acute distress, well-nourished - EENT Eyes: Present: PERRL, EOM intact - Neck Neck: Present: supple, normal ROM - Respiratory Respiratory effort: normal Respiratory: bilateral: diminished, wheezing, negative: rales, rhonchi - Cardiovascular Rhythm: regular Heart Sounds: Present: S1 & S2 - Extremities Extremities: no ischemia, No edema Peripheral Pulses: within normal limits - Abdominal General gastrointestinal: soft, non-tender, non-distended, normal bowel sounds - Integumentary Integumentary: Present: clear, warm - Psychiatric Psychiatric: appropriate mood/affect, cooperative - Neurologic Neurologic: CNII-XII intact, moves all extremities Results - Labs CBC & Chem 7: 03/20/17 05:57 03/21/17 07:43 Labs: Laboratory Last Values WBC 11.2 K/mm3 (4.5-11.0) H 03/20/17 05:57 RBC 4.25 M/mm3 (3.65-5.03) 03/20/17 05:57 Hgb 12.1 gm/dl (10.1-14.3) 03/20/17 05:57 Hct 36.3 % (30.3-42.9) D 03/20/17 05:57 MCV 85 fl (79-97) 03/20/17 05:57 MCH 28 pg (28-32) 03/20/17 05:57 MCHC 33 % (30-34) 03/20/17 05:57 RDW 15.3 % (13.2-15.2) H 03/20/17 05:57 Plt Count 337 K/mm3 (140-440) 03/20/17 05:57 Lymph % (Auto) 7.4 % (13.4-35.0) L 03/20/17 05:57 [place] % (Auto) 7.2 % (0.0-7.3) 03/20/17 05:57 Eos % (Auto) 0.5 % (0.0-4.3) 03/20/17 05:57 Baso % (Auto) 0.6 % (0.0-1.8) 03/20/17 05:57 Lymph # 0.8 K/mm3 (1.2-5.4) L 03/20/17 05:57 [place] # 0.8 K/mm3 (0.0-0.8) 03/20/17 05:57 Eos # 0.1 K/mm3 (0.0-0.4) 03/20/17 05:57 Baso # 0.1 K/mm3 (0.0-0.1) 03/20/17 05:57 Seg Neutrophils % 84.3 % (40.0-70.0) H 03/20/17 05:57 Seg Neutrophils # 9.4 K/mm3 (1.8-7.7) H 03/20/17 05:57 PT 14.4 Sec. (12.2-14.9) 03/17/17 16:36 INR 1.13 (0.87-1.13) 03/17/17 16:36 APTT 29.1 Sec. (24.2-36.6) 03/17/17 16:36 Sodium 141 mmol/L (137-145) 03/21/17 07:43 Potassium 3.7 mmol/L (3.6-5.0) 03/21/17 07:43 Chloride 101.6 mmol/L (98-107) 03/21/17 07:43 Carbon Dioxide 29 mmol/L (22-30) 03/21/17 07:43 Anion Gap 14 mmol/L 03/21/17 07:43 BUN 14 mg/dL (7-17) 03/21/17 07:43 Creatinine 0.3 mg/dL (0.7-1.2) L 03/21/17 07:43 Estimated GFR > 60 ml/min 03/21/17 07:43 BUN/Creatinine Ratio 46.66 % 03/21/17 07:43 Glucose 113 mg/dL (65-100) H 03/21/17 07:43 Lactic Acid 1.40 mmol/L (0.7-2.0) 03/17/17 16:36 Calcium 8.1 mg/dL (8.4-10.2) L 03/21/17 07:43 Phosphorus 1.50 mg/dL (2.5-4.5) L 03/21/17 07:43 Magnesium 2.10 mg/dL (1.7-2.3) 03/21/17 07:43 Total Bilirubin 1.40 mg/dL (0.1-1.2) H 03/20/17 05:57 Direct Bilirubin 0.8 mg/dL (0-0.2) H 03/17/17 15:15 Indirect Bilirubin 0.3 mg/dL 03/17/17 15:15 AST 31 units/L (5-40) 03/20/17 05:57 ALT 71 units/L (7-56) H 03/20/17 05:57 Alkaline Phosphatase 141 units/L (35-129) H 03/20/17 05:57 Total Creatine Kinase 49 units/L (30-135) 03/17/17 16:36 CK-MB (CK-2) 2.0 ng/mL (0.0-4.0) 03/17/17 16:36 CK-MB (CK-2) Rel Index 4.0 (0-4) 03/17/17 16:36 Troponin T < 0.010 ng/mL (0.00-0.029) 03/17/17 21:17 NT-Pro-B Natriuret Pep 123.5 pg/mL (0-900) 03/17/17 16:36 Total Protein 6.1 g/dL (6.3-8.2) L 03/20/17 05:57 Albumin 2.8 g/dL (3.9-5) L 03/20/17 05:57 Albumin/Globulin Ratio 0.8 % 03/20/17 05:57 Amylase 53 units/L (27-131) 03/19/17 04:59 Lipase 71 units/L (13-60) H 03/19/17 04:59 Urine Color Yellow (Yellow) 03/17/17 13:40 Urine Turbidity Clear (Clear) 03/17/17 13:40 Urine pH 5.0 (5.0-7.0) 03/17/17 13:40 Ur Specific [place] 1.019 (1.003-1.030) 03/17/17 13:40 Urine Protein <15 mg/dl mg/dL (Negative) 03/17/17 13:40 Urine Glucose (UA) Neg mg/dL (Negative) 03/17/17 13:40 Urine Ketones Neg mg/dL (Negative) 03/17/17 13:40 Urine Blood Neg (Negative) 03/17/17 13:40 Urine Nitrite Neg (Negative) 03/17/17 13:40 Urine Bilirubin Neg (Negative) 03/17/17 13:40 Urine Urobilinogen < 2.0 mg/dL (<2.0) 03/17/17 13:40 Ur Leukocyte Esterase Neg (Negative) 03/17/17 13:40 Urine WBC (Auto) 3.0 /HPF (0.0-6.0) 03/17/17 13:40 Urine RBC (Auto) 3.0 /HPF (0.0-6.0) 03/17/17 13:40 U Epithel Cells (Auto) 4.0 /HPF (0-13.0) 03/17/17 13:40 Hyaline Casts 2 /LPF 03/17/17 13:40 Urine Mucus Few /HPF 03/17/17 13:40 Blood Type AB POSITIVE 03/17/17 16:36 Antibody Screen Negative 03/17/17 16:36
[2017-03-22] MEDS ORDERED: LASIX IV ONE (09:30)
[2017-03-22] MEDS: LEVAQUIN 750MG/150ML 750 MG/150 ML BAG IV SCH (09:58)
[2017-03-22] MEDS: PEPCID IV SCH (09:59)
[2017-03-22] MEDS: LOVENOX SUB-Q SCH (10:00)
[2017-03-22] MEDS: TYLENOL PO PRN (19:52)
[2017-03-22] MEDS: PEPCID PO SCH (21:48)
[2017-03-23 06:31] LABS: Basophils % (Auto) 0.1 % (0.0-1.8); Hematocrit 34.5 % (30.3-42.9); Hemoglobin 11.6 gm/dl (10.1-14.3); Mean Corpuscular HGB Conc 34 % (30-34); Mean Corpuscular Hemoglobin 28 pg (28-32); Mean Corpuscular Volume 84 fl (79-97); Platelet Count 338 K/mm3 (140-440); Red Blood Count 4.09 M/mm3 (3.65-5.03); Red Cell Distribution Width 14.8 % (13.2-15.2); White Blood Count 5.2 K/mm3 (4.5-11.0)
[2017-03-23 06:47] LABS: Anion Gap 12 mmol/L; Blood Urea Nitrogen 12 mg/dL (7-17); Calcium 8.5 mg/dL (8.4-10.2); Carbon Dioxide 32 mmol/L (22-30); Chloride 100.8 mmol/L (98-107); Glucose 129 mg/dL (65-100); Potassium 4.1 mmol/L (3.6-5.0); Sodium 141 mmol/L (137-145)
[2017-03-23] MEDS: BROVANA NEBU IH SCH ×2 (08:09→19:34)
[2017-03-23] MEDS: PULMICORT IH SCH ×2 (08:10→19:34)
--- NOTE | 2017-03-23 08:53 | Progress Note ---
Assessment and Plan Assessment and plan: --Right upper quadrant pain ,MRCP findings noted, acalculous cholecystitis suspected Left portal venous thrombosis, focal pancreatitis, mass cannot be excluded Small left renal cyst. --CT-guided cholecystostomy is held as patient's symptoms improved Advance diet as tolerated --Diastolic congestive heart failure Left ventricular ejection fraction 50-55%, low-dose Lasix, closely monitor input output Cardiology evaluation if needed -- bronchial asthma: oxygen titrate O2 sats more than 90% ,duoneb , IV antibiotics, tapering dose of steroids Pulmonary following --Hypophosphatemia; corrected --Moderate to severe protein calorie malnutrition; nutrition supplements and supportive care --Acute pancreatitis; resolved lipase normal level, HIDA scan findings noted --Transaminitis; transaminases trending down, closely monitor --Dyslipidemia; on lipid-lowering medications --Hypertension; well controlled, continue current antihypertensives and when necessary medications --Full CODE STATUS --DVT prophylaxis; continue Lovenox Disposition; may discharge home if cleared by surgery History Interval history: Patient feels better, abdominal pain significantly improved Echocardiogram showed diastolic dysfunction, elevated BNP, normal ejection fraction Alert awake oriented 3 not in acute distress Vital signs reviewed Hospitalist Physical - Constitutional Vitals: Temp Pulse Resp BP Pulse Ox 97.3 F L 63 18 153/77 94 03/23/17 04:13 03/23/17 08:18 03/23/17 04:13 03/23/17 04:13 03/23/17 04:13 General appearance: Present: no acute distress, well-nourished - EENT Eyes: Present: PERRL, EOM intact - Neck Neck: Present: supple, normal ROM - Respiratory Respiratory effort: normal Respiratory: bilateral: diminished, negative: rales, rhonchi, wheezing - Cardiovascular Rhythm: regular Heart Sounds: Present: S1 & S2 - Extremities Extremities: no ischemia, No edema Peripheral Pulses: within normal limits - Abdominal General gastrointestinal: soft, non-tender, non-distended, normal bowel sounds - Integumentary Integumentary: Present: clear, warm - Psychiatric Psychiatric: appropriate mood/affect, cooperative - Neurologic Neurologic: CNII-XII intact, moves all extremities Results - Labs CBC & Chem 7: 03/23/17 06:02 03/23/17 06:02 Labs: Laboratory Last Values WBC 5.2 K/mm3 (4.5-11.0) 03/23/17 06:02 RBC 4.09 M/mm3 (3.65-5.03) 03/23/17 06:02 Hgb 11.6 gm/dl (10.1-14.3) 03/23/17 06:02 Hct 34.5 % (30.3-42.9) 03/23/17 06:02 MCV 84 fl (79-97) 03/23/17 06:02 MCH 28 pg (28-32) 03/23/17 06:02 MCHC 34 % (30-34) 03/23/17 06:02 RDW 14.8 % (13.2-15.2) 03/23/17 06:02 Plt Count 338 K/mm3 (140-440) 03/23/17 06:02 Lymph % (Auto) 6.6 % (13.4-35.0) L 03/23/17 06:02 [place] % (Auto) 3.9 % (0.0-7.3) 03/23/17 06:02 Eos % (Auto) 0.0 % (0.0-4.3) 03/23/17 06:02 Baso % (Auto) 0.1 % (0.0-1.8) 03/23/17 06:02 Lymph # 0.3 K/mm3 (1.2-5.4) L 03/23/17 06:02 [place] # 0.2 K/mm3 (0.0-0.8) 03/23/17 06:02 Eos # 0.0 K/mm3 (0.0-0.4) 03/23/17 06:02 Baso # 0.0 K/mm3 (0.0-0.1) 03/23/17 06:02 Seg Neutrophils % 89.4 % (40.0-70.0) H 03/23/17 06:02 Seg Neutrophils # 4.7 K/mm3 (1.8-7.7) 03/23/17 06:02 PT 14.4 Sec. (12.2-14.9) 03/17/17 16:36 INR 1.13 (0.87-1.13) 03/17/17 16:36 APTT 29.1 Sec. (24.2-36.6) 03/17/17 16:36 Sodium 141 mmol/L (137-145) 03/23/17 06:02 Potassium 4.1 mmol/L (3.6-5.0) 03/23/17 06:02 Chloride 100.8 mmol/L (98-107) 03/23/17 06:02 Carbon Dioxide 32 mmol/L (22-30) H 03/23/17 06:02 Anion Gap 12 mmol/L 03/23/17 06:02 BUN 12 mg/dL (7-17) 03/23/17 06:02 Creatinine 0.3 mg/dL (0.7-1.2) L 03/23/17 06:02 Estimated GFR > 60 ml/min 03/23/17 06:02 BUN/Creatinine Ratio 40.00 % 03/23/17 06:02 Glucose 129 mg/dL (65-100) H 03/23/17 06:02 Lactic Acid 1.40 mmol/L (0.7-2.0) 03/17/17 16:36 Calcium 8.5 mg/dL (8.4-10.2) 03/23/17 06:02 Phosphorus 2.80 mg/dL (2.5-4.5) 03/23/17 06:02 Magnesium 2.10 mg/dL (1.7-2.3) 03/21/17 07:43 Total Bilirubin 1.40 mg/dL (0.1-1.2) H 03/20/17 05:57 Direct Bilirubin 0.8 mg/dL (0-0.2) H 03/17/17 15:15 Indirect Bilirubin 0.3 mg/dL 03/17/17 15:15 AST 31 units/L (5-40) 03/20/17 05:57 ALT 71 units/L (7-56) H 03/20/17 05:57 Alkaline Phosphatase 141 units/L (35-129) H 03/20/17 05:57 Total Creatine Kinase 49 units/L (30-135) 03/17/17 16:36 CK-MB (CK-2) 2.0 ng/mL (0.0-4.0) 03/17/17 16:36 CK-MB (CK-2) Rel Index 4.0 (0-4) 03/17/17 16:36 Troponin T < 0.010 ng/mL (0.00-0.029) 03/17/17 21:17 NT-Pro-B Natriuret Pep 1794 pg/mL (0-900) H 03/22/17 09:41 Total Protein 6.1 g/dL (6.3-8.2) L 03/20/17 05:57 Albumin 2.8 g/dL (3.9-5) L 03/20/17 05:57 Albumin/Globulin Ratio 0.8 % 03/20/17 05:57 Amylase 53 units/L (27-131) 03/19/17 04:59 Lipase 71 units/L (13-60) H 03/19/17 04:59 Urine Color Yellow (Yellow) 03/17/17 13:40 Urine Turbidity Clear (Clear) 03/17/17 13:40 Urine pH 5.0 (5.0-7.0) 03/17/17 13:40 Ur Specific [place] 1.019 (1.003-1.030) 03/17/17 13:40 Urine Protein <15 mg/dl mg/dL (Negative) 03/17/17 13:40 Urine Glucose (UA) Neg mg/dL (Negative) 03/17/17 13:40 Urine Ketones Neg mg/dL (Negative) 03/17/17 13:40 Urine Blood Neg (Negative) 03/17/17 13:40 Urine Nitrite Neg (Negative) 03/17/17 13:40 Urine Bilirubin Neg (Negative) 03/17/17 13:40 Urine Urobilinogen < 2.0 mg/dL (<2.0) 03/17/17 13:40 Ur Leukocyte Esterase Neg (Negative) 03/17/17 13:40 Urine WBC (Auto) 3.0 /HPF (0.0-6.0) 03/17/17 13:40 Urine RBC (Auto) 3.0 /HPF (0.0-6.0) 03/17/17 13:40 U Epithel Cells (Auto) 4.0 /HPF (0-13.0) 03/17/17 13:40 Hyaline Casts 2 /LPF 03/17/17 13:40 Urine Mucus Few /HPF 03/17/17 13:40 Blood Type AB POSITIVE 03/17/17 16:36 Antibody Screen Negative 03/17/17 16:36
[2017-03-23] MEDS: PEPCID PO SCH ×2 (11:23→14:50)
[2017-03-23] MEDS: LOVENOX SUB-Q SCH (11:23)
[2017-03-23] MEDS: LASIX PO SCH (11:23)
[2017-03-23] MEDS: PROVENTIL IH PRN (13:16)
[2017-03-23] MEDS ORDERED: LASIX IV ONE (17:45)
--- NOTE | 2017-03-23 17:51 | Progress Note ---
Assessment and Plan Imp: 1. Acute cholecystitis/pancreatitis 2. Asthma exac. 3. Acute diastolic CHF 4. Mitral regurg. 5. Pulm HTN, suspect 2/2 #'s 3 and 4 6. Acute respiratory failure, hypoxia 7. Large hiatal hernia; at risk for aspiration Rec: 1. Repeat IV Lasix 2. Labs and repeat CXR in AM 3. Increase Solumedrol 4. Pulmicort/Brovana/Albuterol 5. Wean O2 6. Consider CT chest if no improvement clinically 7. On DVT PPx since admit Plan of care reviewed w/ patient/son (who is MD), they understand/agree Subjective Date of service: 03/23/17 Principal diagnosis: SOB, Asthma exac. Interval history: No events. Still with SOB, "worse". + Wheezing. No chest pain. On 3.5L NC. Active Medications Acetaminophen (Tylenol) 650 mg PO Q4H PRN PRN Reason: Pain MILD(1-3)/Fever >100.5/NARVAEZ Last Admin: 03/22/17 19:52 Dose: 650 mg Albuterol (Proventil) 2.5 mg IH Q4H PRN PRN Reason: Shortness Of Breath Last Admin: 03/23/17 13:16 Dose: 2.5 mg Arformoterol Tartrate (Brovana Nebu) 15 mcg IH Q12HRT [facility] Last Admin: 03/23/17 08:09 Dose: 15 mcg Bisacodyl (Dulcolax) 10 mg SC QDAY PRN PRN Reason: Constipation unrelieved by MOM Budesonide (Pulmicort) 0.5 mg IH Q12HRT [facility] Last Admin: 03/23/17 08:10 Dose: 0.5 mg Clonidine HCl (Catapres-Tts Patch) 0.1 mg TD We [facility] Last Admin: 03/18/17 11:01 Dose: 0.1 mg Enoxaparin Sodium (Lovenox) 40 mg SUB-Q QDAY [facility] Last Admin: 03/23/17 11:23 Dose: 40 mg Famotidine (Pepcid) 20 mg PO DAILY [facility] Last Admin: 03/23/17 11:23 Dose: 20 mg Furosemide (Lasix) 20 mg PO QDAY [facility] Last Admin: 03/23/17 11:23 Dose: 20 mg Furosemide (Lasix) 20 mg IV ONCE ONE Stop: 03/23/17 17:46 Hydromorphone HCl (Dilaudid) 2 mg IV Q3H PRN PRN Reason: Pain , Severe (7-10) Last Admin: 03/22/17 23:57 Dose: 2 mg Levofloxacin/Dextrose (Levaquin 750mg/150ml) 750 mg in 150 mls @ 150 mls/hr IV Q48H [facility]GA PRN Reason: Protocol Last Admin: 03/22/17 09:58 Dose: 150 mls/hr Magnesium Hydroxide (Milk Of Magnesia) 30 ml PO Q4H PRN PRN Reason: Constipation Last Admin: 03/21/17 06:24 Dose: 30 ml Methylprednisolone Sodium Succinate (Solu-Medrol) 40 mg IV Q8HR [facility] Ondansetron HCl (Zofran) 4 mg IV Q3H PRN PRN Reason: N/V unrelieved by Mily Last Admin: 03/18/17 16:02 Dose: 4 mg Objective Vital Signs - 12hr 03/23/17 03/23/17 03/23/17 08:10 08:18 08:25 Pulse Rate 63 Pulse Rate [ 70 74 Anterior Bilateral Throughout] Respiratory Rate Respiratory 20 20 Rate [Anterior Bilateral Throughout] Blood Pressure O2 Sat by Pulse Oximetry 03/23/17 03/23/17 03/23/17 10:00 13:15 13:30 Pulse Rate Pulse Rate [ 82 88 Anterior Bilateral Throughout] Respiratory Rate Respiratory 18 20 Rate [Anterior Bilateral Throughout] Blood Pressure O2 Sat by Pulse 96 Oximetry 03/23/17 03/23/17 15:45 15:46 Pulse Rate 82 75 Pulse Rate [ Anterior Bilateral Throughout] Respiratory 20 Rate Respiratory Rate [Anterior Bilateral Throughout] Blood Pressure 141/77 O2 Sat by Pulse 94 97 Oximetry Constitutional: no acute distress, alert Eyes: non-icteric ENT: oropharynx moist Neck: supple Effort: mildly labored Ascultation: Bilateral: diminished breath sounds, wheezes (faint occasional expiratory wheezes), rales (few in bases) Percussion: Right: not dull Cardiovascular: regular rate and rhythm (no mrg) Gastrointestinal: normoactive bowel sounds, soft, non-tender, non-distended Integumentary: normal Extremities: no cyanosis, no edema, pink and warm Neurologic: normal mental status, non-focal exam, pupils equal and round, CN II- XII normal Psychiatric: mood appropriate, affect normal CBC and BMP: 03/23/17 06:02 03/23/17 06:02 ABG, PT/INR, D-dimer: PT/INR, D-dimer PT 14.4 Sec. (12.2-14.9) 03/17/17 16:36 INR 1.13 (0.87-1.13) 03/17/17 16:36 Abnormal lab findings: Abnormal Labs 03/19/17 03/20/17 03/20/17 04:59 05:57 05:57 WBC 11.2 H RDW 15.3 H Lymph % (Auto) 7.4 L Lymph # 0.8 L Seg Neutrophils % 84.3 H Seg Neutrophils # 9.4 H Potassium 3.2 L Carbon Dioxide Creatinine 0.5 L 0.4 L Glucose 113 H Calcium 8.1 L Phosphorus Total Bilirubin 1.40 H AST 53 H ALT 106 H 71 H Alkaline Phosphatase 142 H 141 H NT-Pro-B Natriuret Pep Total Protein 5.7 L 6.1 L Albumin 2.9 L 2.8 L Lipase 71 H 03/21/17 03/22/17 03/23/17 07:43 09:41 06:02 WBC RDW Lymph % (Auto) 6.6 L Lymph # 0.3 L Seg Neutrophils % 89.4 H Seg Neutrophils # Potassium Carbon Dioxide Creatinine 0.3 L Glucose 113 H Calcium 8.1 L Phosphorus 1.50 L Total Bilirubin AST ALT Alkaline Phosphatase NT-Pro-B Natriuret Pep 1794 H Total Protein Albumin Lipase 03/23/17 06:02 WBC RDW Lymph % (Auto) Lymph # Seg Neutrophils % Seg Neutrophils # Potassium Carbon Dioxide 32 H Creatinine 0.3 L Glucose 129 H Calcium Phosphorus Total Bilirubin AST ALT Alkaline Phosphatase NT-Pro-B Natriuret Pep Total Protein Albumin Lipase Chest x-ray: report reviewed, image reviewed
[2017-03-23] MEDS ORDERED: DILAUDID IV PRN (18:18)
[2017-03-24 06:10] LABS: Hematocrit 36.1 % (30.3-42.9); Hemoglobin 11.5 gm/dl (10.1-14.3); Mean Corpuscular HGB Conc 32 % (30-34); Mean Corpuscular Hemoglobin 27 pg (28-32); Mean Corpuscular Volume 85 fl (79-97); Platelet Count 369 K/mm3 (140-440); Red Blood Count 4.26 M/mm3 (3.65-5.03); White Blood Count 9.6 K/mm3 (4.5-11.0)
[2017-03-24 06:15] LABS: Alanine Aminotransferase 132 units/L (7-56); Albumin 2.7 g/dL (3.9-5); Albumin/Globulin Ratio 0.9 %; Alkaline Phosphatase 261 units/L (35-129); Anion Gap 14 mmol/L; Blood Urea Nitrogen 14 mg/dL (7-17); Calcium 8.8 mg/dL (8.4-10.2); Carbon Dioxide 31 mmol/L (22-30); Chloride 100.1 mmol/L (98-107); Glucose 139 mg/dL (65-100); Potassium 3.7 mmol/L (3.6-5.0); Sodium 141 mmol/L (137-145); Total Protein 5.6 g/dL (6.3-8.2)
[2017-03-24 08:25] LABS: Basophils % (Manual) 0 % (0.0-1.8); Blastocytes % (Manual) 0 %; Eosinophils % (Manual) 0 % (0.0-4.3)
[2017-03-24 08:26] LABS: Diff Status Complete; Hypochromasia 1+; Ovalocytes 1+; Platelet Estimate Consistent w Auto
[2017-03-24] MEDS: BROVANA NEBU IH SCH ×2 (08:58→20:52)
[2017-03-24] MEDS: PULMICORT IH SCH ×2 (08:59→20:52)
[2017-03-24] MEDS: LEVAQUIN 750MG/150ML 750 MG/150 ML BAG IV SCH (09:23)
[2017-03-24] MEDS: LOVENOX SUB-Q SCH (09:25)
[2017-03-24] MEDS: PEPCID PO SCH (09:26)
[2017-03-24] MEDS: LASIX PO SCH (09:26)
--- NOTE | 2017-03-24 10:34 | Progress Note ---
Assessment and Plan Assessment and plan: --Right upper quadrant pain ,MRCP findings noted, acalculous cholecystitis suspected Left portal venous thrombosis, focal pancreatitis, mass cannot be excluded Small left renal cyst. --CT-guided cholecystostomy potentially per surgery. Patient still complains of epigastric pain. Advance diet as tolerated --Acute Diastolic congestive heart failure Left ventricular ejection fraction 50-55%, patient received IV Lasix yesterday. Closely monitor input output Cardiology evaluation if needed --Asthma exacerbation. Improved. Continue Oxygen, titrate O2 sats more than 90 % ,duoneb, Pulmicort, Brovana, IV antibiotics, tapering dose of steroids Pulmonary following --Hypophosphatemia; corrected --Moderate to severe protein calorie malnutrition; nutrition supplements and supportive care --Acute pancreatitis; resolved lipase normal level, HIDA scan findings noted --Transaminitis; transaminases trending down, closely monitor --Dyslipidemia; on lipid-lowering medications --Hypertension; well controlled, continue current antihypertensives and when necessary medications --Full CODE STATUS --DVT prophylaxis; continue Lovenox Disposition; may discharge home if cleared by surgery History Interval history: Patient still complaining of epigastric pain. Hospitalist Physical - Constitutional Vitals: Temp Pulse Resp BP Pulse Ox 97.5 F L 67 18 148/71 96 03/24/17 04:24 03/24/17 04:24 03/24/17 04:24 03/24/17 04:24 03/24/17 04:24 General appearance: Present: no acute distress, well-nourished - EENT Eyes: Present: PERRL, EOM intact ENT: hearing intact, clear oral mucosa, dentition normal - Neck Neck: Present: supple, normal ROM - Respiratory Respiratory effort: normal Respiratory: bilateral: CTA - Cardiovascular Rhythm: regular Heart Sounds: Present: S1 & S2. Absent: gallop, rub - Extremities Extremities: no ischemia, No edema, Full ROM - Abdominal General gastrointestinal: soft, non-tender, non-distended, normal bowel sounds - Integumentary Integumentary: Present: clear, warm, dry - Neurologic Neurologic: CNII-XII intact, moves all extremities Results - Labs CBC & Chem 7: 03/24/17 05:14 03/24/17 05:14 Labs: Laboratory Last Values WBC 9.6 K/mm3 (4.5-11.0) 03/24/17 05:14 RBC 4.26 M/mm3 (3.65-5.03) 03/24/17 05:14 Hgb 11.5 gm/dl (10.1-14.3) 03/24/17 05:14 Hct 36.1 % (30.3-42.9) 03/24/17 05:14 MCV 85 fl (79-97) 03/24/17 05:14 MCH 27 pg (28-32) L 03/24/17 05:14 MCHC 32 % (30-34) 03/24/17 05:14 RDW 15.0 % (13.2-15.2) 03/24/17 05:14 Plt Count 369 K/mm3 (140-440) 03/24/17 05:14 Lymph % (Auto) 6.6 % (13.4-35.0) L 03/23/17 06:02 [place] % (Auto) 3.9 % (0.0-7.3) 03/23/17 06:02 Eos % (Auto) 0.0 % (0.0-4.3) 03/23/17 06:02 Baso % (Auto) 0.1 % (0.0-1.8) 03/23/17 06:02 Lymph # 0.3 K/mm3 (1.2-5.4) L 03/23/17 06:02 [place] # 0.2 K/mm3 (0.0-0.8) 03/23/17 06:02 Eos # 0.0 K/mm3 (0.0-0.4) 03/23/17 06:02 Baso # 0.0 K/mm3 (0.0-0.1) 03/23/17 06:02 Add Manual Diff Complete 03/24/17 05:14 Total Counted 100 03/24/17 05:14 Seg Neutrophils % Supervisor Product Inspection 03/24/17 05:14 Seg Neuts % (Manual) 95.0 % (40.0-70.0) H 03/24/17 05:14 Band Neutrophils % 0 % 03/24/17 05:14 Lymphocytes % (Manual) 4.0 % (13.4-35.0) L 03/24/17 05:14 Reactive Lymphs % (Man) 0 % 03/24/17 05:14 Monocytes % (Manual) 1.0 % (0.0-7.3) 03/24/17 05:14 Eosinophils % (Manual) 0 % (0.0-4.3) 03/24/17 05:14 Basophils % (Manual) 0 % (0.0-1.8) 03/24/17 05:14 Metamyelocytes % 0 % 03/24/17 05:14 Myelocytes % 0 % 03/24/17 05:14 Promyelocytes % 0 % 03/24/17 05:14 Blast Cells % 0 % 03/24/17 05:14 Nucleated RBC % Not Reportable 03/24/17 05:14 Seg Neutrophils # 4.7 K/mm3 (1.8-7.7) 03/23/17 06:02 Seg Neutrophils # Man 9.1 K/mm3 (1.8-7.7) H 03/24/17 05:14 Band Neutrophils # 0.0 K/mm3 03/24/17 05:14 Lymphocytes # (Manual) 0.4 K/mm3 (1.2-5.4) L 03/24/17 05:14 Abs React Lymphs (Man) 0.0 K/mm3 03/24/17 05:14 Monocytes # (Manual) 0.1 K/mm3 (0.0-0.8) 03/24/17 05:14 Eosinophils # (Manual) 0.0 K/mm3 (0.0-0.4) 03/24/17 05:14 Basophils # (Manual) 0.0 K/mm3 (0.0-0.1) 03/24/17 05:14 Metamyelocytes # 0.0 K/mm3 03/24/17 05:14 Myelocytes # 0.0 K/mm3 03/24/17 05:14 Promyelocytes # 0.0 K/mm3 03/24/17 05:14 Blast Cells # 0.0 K/mm3 03/24/17 05:14 WBC Morphology Not Reportable 03/24/17 05:14 Hypersegmented Neuts Not Reportable 03/24/17 05:14 Hyposegmented Neuts Not Reportable 03/24/17 05:14 Hypogranular Neuts Not Reportable 03/24/17 05:14 Smudge Cells Not Reportable 03/24/17 05:14 Toxic Granulation Not Reportable 03/24/17 05:14 Toxic Vacuolation Not Reportable 03/24/17 05:14 Dohle Bodies Not Reportable 03/24/17 05:14 Pelger-Huet Anomaly Not Reportable 03/24/17 05:14 Sunny Rods Not Reportable 03/24/17 05:14 Platelet Estimate Consistent w auto 03/24/17 05:14 Clumped Platelets Not Reportable 03/24/17 05:14 Plt Clumps, EDTA Not Reportable 03/24/17 05:14 Large Platelets Not Reportable 03/24/17 05:14 Giant Platelets Not Reportable 03/24/17 05:14 Platelet Satelliting Not Reportable 03/24/17 05:14 Plt Morphology Comment Not Reportable 03/24/17 05:14 RBC Morphology Not Reportable 03/24/17 05:14 Dimorphic RBCs Not Reportable 03/24/17 05:14 Polychromasia Not Reportable 03/24/17 05:14 Hypochromasia 1+ 03/24/17 05:14 Poikilocytosis Not Reportable 03/24/17 05:14 Anisocytosis Not Reportable 03/24/17 05:14 Microcytosis Not Reportable 03/24/17 05:14 Macrocytosis Not Reportable 03/24/17 05:14 Spherocytes Not Reportable 03/24/17 05:14 Pappenheimer Bodies Not Reportable 03/24/17 05:14 Sickle Cells Not Reportable 03/24/17 05:14 Target Cells Not Reportable 03/24/17 05:14 Tear Drop Cells Not Reportable 03/24/17 05:14 Ovalocytes 1+ 03/24/17 05:14 Helmet Cells Not Reportable 03/24/17 05:14 De Jesus-Volant Bodies Not Reportable 03/24/17 05:14 [place] Rings Not Reportable 03/24/17 05:14 Kim Cells Not Reportable 03/24/17 05:14 Bite Cells Not Reportable 03/24/17 05:14 Crenated Cell Not Reportable 03/24/17 05:14 Elliptocytes Not Reportable 03/24/17 05:14 Acanthocytes (Spur) Not Reportable 03/24/17 05:14 Rouleaux Not Reportable 03/24/17 05:14 Hemoglobin C Crystals Not Reportable 03/24/17 05:14 Schistocytes Not Reportable 03/24/17 05:14 Malaria parasites Not Reportable 03/24/17 05:14 Paolo Bodies Not Reportable 03/24/17 05:14 Hem Pathologist Commnt No 03/24/17 05:14 PT 14.4 Sec. (12.2-14.9) 03/17/17 16:36 INR 1.13 (0.87-1.13) 03/17/17 16:36 APTT 29.1 Sec. (24.2-36.6) 03/17/17 16:36 Sodium 141 mmol/L (137-145) 03/24/17 05:14 Potassium 3.7 mmol/L (3.6-5.0) 03/24/17 05:14 Chloride 100.1 mmol/L (98-107) 03/24/17 05:14 Carbon Dioxide 31 mmol/L (22-30) H 03/24/17 05:14 Anion Gap 14 mmol/L 03/24/17 05:14 BUN 14 mg/dL (7-17) 03/24/17 05:14 Creatinine 0.4 mg/dL (0.7-1.2) L 03/24/17 05:14 Estimated GFR > 60 ml/min 03/24/17 05:14 BUN/Creatinine Ratio 35.00 % 03/24/17 05:14 Glucose 139 mg/dL (65-100) H 03/24/17 05:14 Lactic Acid 1.40 mmol/L (0.7-2.0) 03/17/17 16:36 Calcium 8.8 mg/dL (8.4-10.2) 03/24/17 05:14 Phosphorus 2.80 mg/dL (2.5-4.5) 03/23/17 06:02 Magnesium 2.20 mg/dL (1.7-2.3) 03/24/17 05:14 Total Bilirubin 0.50 mg/dL (0.1-1.2) 03/24/17 05:14 Direct Bilirubin 0.8 mg/dL (0-0.2) H 03/17/17 15:15 Indirect Bilirubin 0.3 mg/dL 03/17/17 15:15 AST 78 units/L (5-40) H 03/24/17 05:14 ALT 132 units/L (7-56) H 03/24/17 05:14 Alkaline Phosphatase 261 units/L (35-129) H 03/24/17 05:14 Total Creatine Kinase 49 units/L (30-135) 03/17/17 16:36 CK-MB (CK-2) 2.0 ng/mL (0.0-4.0) 03/17/17 16:36 CK-MB (CK-2) Rel Index 4.0 (0-4) 03/17/17 16:36 Troponin T < 0.010 ng/mL (0.00-0.029) 03/17/17 21:17 NT-Pro-B Natriuret Pep 1794 pg/mL (0-900) H 03/22/17 09:41 Total Protein 5.6 g/dL (6.3-8.2) L 03/24/17 05:14 Albumin 2.7 g/dL (3.9-5) L 03/24/17 05:14 Albumin/Globulin Ratio 0.9 % 03/24/17 05:14 Amylase 53 units/L (27-131) 03/19/17 04:59 Lipase 71 units/L (13-60) H 03/19/17 04:59 Urine Color Yellow (Yellow) 03/17/17 13:40 Urine Turbidity Clear (Clear) 03/17/17 13:40 Urine pH 5.0 (5.0-7.0) 03/17/17 13:40 Ur Specific [place] 1.019 (1.003-1.030) 03/17/17 13:40 Urine Protein <15 mg/dl mg/dL (Negative) 03/17/17 13:40 Urine Glucose (UA) Neg mg/dL (Negative) 03/17/17 13:40 Urine Ketones Neg mg/dL (Negative) 03/17/17 13:40 Urine Blood Neg (Negative) 03/17/17 13:40 Urine Nitrite Neg (Negative) 03/17/17 13:40 Urine Bilirubin Neg (Negative) 03/17/17 13:40 Urine Urobilinogen < 2.0 mg/dL (<2.0) 03/17/17 13:40 Ur Leukocyte Esterase Neg (Negative) 03/17/17 13:40 Urine WBC (Auto) 3.0 /HPF (0.0-6.0) 03/17/17 13:40 Urine RBC (Auto) 3.0 /HPF (0.0-6.0) 03/17/17 13:40 U Epithel Cells (Auto) 4.0 /HPF (0-13.0) 03/17/17 13:40 Hyaline Casts 2 /LPF 03/17/17 13:40 Urine Mucus Few /HPF 03/17/17 13:40 Blood Type AB POSITIVE 03/17/17 16:36 Antibody Screen Negative 03/17/17 16:36
--- NOTE | 2017-03-24 10:59 | XRay Report ---
ROUTINE CHEST, TWO VIEWS: HISTORY: Shortness of breath, hypoxia. Mild improvement in pulmonary venous congestion and small pleural effusions is demonstrated since 03/20/17. Mild cardiomegaly is stable. There is bibasilar atelectasis but no convincing pneumonia. Large hiatal hernia is also suspected and unchanged. Left arm PICC remains in good position. IMPRESSION: Mild improvement in CHF since the exam 4 days ago.
--- NOTE | 2017-03-24 13:25 | Progress Note ---
Assessment and Plan Pt states that "pain is gone". dayanna solid diet Abd soft, non tender pulm eval noted. pulm & cardiac eval in progress. pulm edema & pulm HTN suspected w/u in progress appears surgically stable continue present care Selected Entries 03/24/17 03/24/17 09:00 09:04 Temperature 98.1 F Pulse Rate [ 68 Anterior Bilateral Throughout] Respiratory 16 Rate [Anterior Bilateral Throughout] Blood Pressure 144/73 [Left] Laboratory Tests 03/20/17 03/24/17 03/24/17 05:57 05:14 05:14 WBC 9.6 Hgb 11.5 Hct 36.1 Sodium 141 Potassium 3.7 Chloride 100.1 BUN 14 Creatinine 0.4 L Total Bilirubin 1.40 H 0.50 AST 78 H ALT 132 H Alkaline Phosphatase 261 H Objective Vital Signs - 12hr 03/24/17 03/24/17 03/24/17 04:24 08:55 09:00 Temperature 97.5 F L 98.1 F Pulse Rate 67 80 Pulse Rate [ 66 Anterior Bilateral Throughout] Respiratory 18 22 Rate Respiratory 16 Rate [Anterior Bilateral Throughout] Blood Pressure 148/71 Blood Pressure 144/73 [Left] O2 Sat by Pulse 96 96 97 Oximetry 03/24/17 09:04 Temperature Pulse Rate Pulse Rate [ 68 Anterior Bilateral Throughout] Respiratory Rate Respiratory 16 Rate [Anterior Bilateral Throughout] Blood Pressure Blood Pressure [Left] O2 Sat by Pulse Oximetry - Labs 03/24/17 05:14 03/24/17 05:14 Diabetes panel 03/24/17 Range/Units 05:14 Sodium 141 (137-145) mmol/L Potassium 3.7 (3.6-5.0) mmol/L Chloride 100.1 (98-107) mmol/L Carbon Dioxide 31 H (22-30) mmol/L BUN 14 (7-17) mg/dL Creatinine 0.4 L (0.7-1.2) mg/dL Glucose 139 H (65-100) mg/dL Calcium 8.8 (8.4-10.2) mg/dL AST 78 H (5-40) units/L ALT 132 H (7-56) units/L Alkaline Phosphatase 261 H (35-129) units/L Total Protein 5.6 L (6.3-8.2) g/dL Albumin 2.7 L (3.9-5) g/dL Calcium panel 03/24/17 Range/Units 05:14 Calcium 8.8 (8.4-10.2) mg/dL Albumin 2.7 L (3.9-5) g/dL Pituitary panel 03/24/17 Range/Units 05:14 Sodium 141 (137-145) mmol/L Potassium 3.7 (3.6-5.0) mmol/L Chloride 100.1 (98-107) mmol/L Carbon Dioxide 31 H (22-30) mmol/L BUN 14 (7-17) mg/dL Creatinine 0.4 L (0.7-1.2) mg/dL Glucose 139 H (65-100) mg/dL Calcium 8.8 (8.4-10.2) mg/dL Adrenal panel 03/24/17 Range/Units 05:14 Sodium 141 (137-145) mmol/L Potassium 3.7 (3.6-5.0) mmol/L Chloride 100.1 (98-107) mmol/L Carbon Dioxide 31 H (22-30) mmol/L BUN 14 (7-17) mg/dL Creatinine 0.4 L (0.7-1.2) mg/dL Glucose 139 H (65-100) mg/dL Calcium 8.8 (8.4-10.2) mg/dL Total Bilirubin 0.50 (0.1-1.2) mg/dL AST 78 H (5-40) units/L ALT 132 H (7-56) units/L Alkaline Phosphatase 261 H (35-129) units/L Total Protein 5.6 L (6.3-8.2) g/dL Albumin 2.7 L (3.9-5) g/dL
--- NOTE | 2017-03-24 16:05 | Progress Note ---
Assessment and Plan Imp: 1. Acute cholecystitis/pancreatitis 2. Asthma exac. 3. Acute diastolic CHF 4. Mitral regurg. 5. Pulm HTN, suspect 2/2 #'s 3 and 4 6. Acute respiratory failure, hypoxia 7. Large hiatal hernia; at risk for aspiration 8. Pleural effusions Rec: 1. Repeat IV Lasix; BMP in AM 2. Cont. Solumedrol 3. Nutrition consult for supplements; low-protein state likely contributing to pleural effusions 4. Pulmicort/Brovana/Albuterol 5. Wean O2 6. Repeat CXR again ~ 2 days; hold off on thoracentesis unless effusions do not resolve with diuresis and improved nutrition 7. On DVT PPx since admit 8. Try to mobilize Plan of care reviewed w/ patient/son (who is MD), they understand/agree Subjective Date of service: 03/24/17 Principal diagnosis: SOB, Asthma exac. Interval history: No events. SOB better s/p Lasix. Wheezing better. No chest pain. On 3.5L NC. Active Medications Acetaminophen (Tylenol) 650 mg PO Q4H PRN PRN Reason: Pain MILD(1-3)/Fever >100.5/NARVAEZ Last Admin: 03/22/17 19:52 Dose: 650 mg Albuterol (Proventil) 2.5 mg IH Q4H PRN PRN Reason: Shortness Of Breath Last Admin: 03/23/17 13:16 Dose: 2.5 mg Arformoterol Tartrate (Brovana Nebu) 15 mcg IH Q12HRT COUNT INCLUDES THE [facility] Last Admin: 03/24/17 08:58 Dose: 15 mcg Bisacodyl (Dulcolax) 10 mg KS QDAY PRN PRN Reason: Constipation unrelieved by MOM Budesonide (Pulmicort) 0.5 mg IH Q12HRT COUNT INCLUDES THE [facility] Last Admin: 03/24/17 08:59 Dose: 0.5 mg Clonidine HCl (Catapres-Tts Patch) 0.1 mg TD We COUNT INCLUDES THE [facility] Last Admin: 03/18/17 11:01 Dose: 0.1 mg Enoxaparin Sodium (Lovenox) 40 mg SUB-Q QDAY COUNT INCLUDES THE [facility] Last Admin: 03/24/17 09:25 Dose: 40 mg Famotidine (Pepcid) 20 mg PO DAILY COUNT INCLUDES THE [facility] Last Admin: 03/24/17 09:26 Dose: 20 mg Furosemide (Lasix) 20 mg PO QDAY COUNT INCLUDES THE [facility] Last Admin: 03/24/17 09:26 Dose: 20 mg Furosemide (Lasix) 20 mg IV QDAY COUNT INCLUDES THE [facility] Hydromorphone HCl (Dilaudid) 1 mg IV Q6H PRN PRN Reason: Pain , Severe (7-10) Levofloxacin/Dextrose (Levaquin 750mg/150ml) 750 mg in 150 mls @ 150 mls/hr IV Q48H OLGA PRN Reason: Protocol Last Admin: 03/24/17 09:23 Dose: 150 mls/hr Magnesium Hydroxide (Milk Of Magnesia) 30 ml PO Q4H PRN PRN Reason: Constipation Last Admin: 03/21/17 06:24 Dose: 30 ml Methylprednisolone Sodium Succinate (Solu-Medrol) 40 mg IV Q8HR COUNT INCLUDES THE [facility] Last Admin: 03/24/17 13:26 Dose: 40 mg Ondansetron HCl (Zofran) 4 mg IV Q3H PRN PRN Reason: N/V unrelieved by Mily Last Admin: 03/18/17 16:02 Dose: 4 mg Objective Vital Signs - 12hr 03/24/17 03/24/17 03/24/17 04:24 08:55 09:00 Temperature 97.5 F L 98.1 F Pulse Rate 67 80 Pulse Rate [ 66 Anterior Bilateral Throughout] Respiratory 18 22 Rate Respiratory 16 Rate [Anterior Bilateral Throughout] Blood Pressure 148/71 Blood Pressure 144/73 [Left] O2 Sat by Pulse 96 96 97 Oximetry 03/24/17 03/24/17 03/24/17 09:04 10:00 12:50 Temperature 98.1 F Pulse Rate 66 73 Pulse Rate [ 68 Anterior Bilateral Throughout] Respiratory 20 Rate Respiratory 16 Rate [Anterior Bilateral Throughout] Blood Pressure Blood Pressure 140/73 [Left] O2 Sat by Pulse 98 Oximetry Constitutional: no acute distress, alert Eyes: non-icteric ENT: oropharynx moist Neck: supple Effort: normal Ascultation: Bilateral: diminished breath sounds (bases) Percussion: Right: not dull Cardiovascular: regular rate and rhythm (no mrg) Gastrointestinal: normoactive bowel sounds, soft, non-tender, non-distended Integumentary: normal Extremities: no cyanosis, no edema, pink and warm Neurologic: normal mental status, non-focal exam, pupils equal and round, CN II- XII normal Psychiatric: mood appropriate, affect normal CBC and BMP: 03/24/17 05:14 03/24/17 05:14 ABG, PT/INR, D-dimer: PT/INR, D-dimer PT 14.4 Sec. (12.2-14.9) 03/17/17 16:36 INR 1.13 (0.87-1.13) 03/17/17 16:36 Abnormal lab findings: Abnormal Labs 03/19/17 03/20/17 03/20/17 04:59 05:57 05:57 WBC 11.2 H MCH RDW 15.3 H Lymph % (Auto) 7.4 L Lymph # 0.8 L Seg Neutrophils % 84.3 H Seg Neuts % (Manual) Lymphocytes % (Manual) Seg Neutrophils # 9.4 H Seg Neutrophils # Man Lymphocytes # (Manual) Potassium 3.2 L Carbon Dioxide Creatinine 0.5 L 0.4 L Glucose 113 H Calcium 8.1 L Phosphorus Total Bilirubin 1.40 H AST 53 H ALT 106 H 71 H Alkaline Phosphatase 142 H 141 H NT-Pro-B Natriuret Pep Total Protein 5.7 L 6.1 L Albumin 2.9 L 2.8 L Lipase 71 H 03/21/17 03/22/17 03/23/17 07:43 09:41 06:02 WBC MCH RDW Lymph % (Auto) 6.6 L Lymph # 0.3 L Seg Neutrophils % 89.4 H Seg Neuts % (Manual) Lymphocytes % (Manual) Seg Neutrophils # Seg Neutrophils # Man Lymphocytes # (Manual) Potassium Carbon Dioxide Creatinine 0.3 L Glucose 113 H Calcium 8.1 L Phosphorus 1.50 L Total Bilirubin AST ALT Alkaline Phosphatase NT-Pro-B Natriuret Pep 1794 H Total Protein Albumin Lipase 03/23/17 03/24/17 03/24/17 06:02 05:14 05:14 WBC MCH 27 L RDW Lymph % (Auto) Lymph # Seg Neutrophils % Seg Neuts % (Manual) 95.0 H Lymphocytes % (Manual) 4.0 L Seg Neutrophils # Seg Neutrophils # Man 9.1 H Lymphocytes # (Manual) 0.4 L Potassium Carbon Dioxide 32 H 31 H Creatinine 0.3 L 0.4 L Glucose 129 H 139 H Calcium Phosphorus Total Bilirubin AST 78 H ALT 132 H Alkaline Phosphatase 261 H NT-Pro-B Natriuret Pep Total Protein 5.6 L Albumin 2.7 L Lipase Chest x-ray: report reviewed, image reviewed (small bilateral effusions; ? mild improvement)
[2017-03-24] MEDS: LASIX IV SCH (17:21)
[2017-03-25 05:56] LABS: Anion Gap 14 mmol/L; Blood Urea Nitrogen 20 mg/dL (7-17); Calcium 8.4 mg/dL (8.4-10.2); Carbon Dioxide 32 mmol/L (22-30); Chloride 100.1 mmol/L (98-107); Glucose 104 mg/dL (65-100); Potassium 3.9 mmol/L (3.6-5.0); Sodium 142 mmol/L (137-145)
--- NOTE | 2017-03-25 08:27 | Progress Note ---
Assessment and Plan Pt without compl. dayanna solid diet well. Abd soft, non tender. uncontrolled HTN surgically stable will sign off thanks. Selected Entries 03/25/17 07:40 Temperature 97.5 F L Pulse Rate 74 Respiratory 18 Rate Blood Pressure 176/92 Objective Vital Signs - 12hr 03/24/17 03/24/17 03/24/17 20:45 20:56 22:00 Temperature Pulse Rate 104 H Pulse Rate [ 65 69 Anterior Bilateral Throughout] Respiratory 18 Rate Respiratory 18 20 Rate [Anterior Bilateral Throughout] Blood Pressure O2 Sat by Pulse 97 Oximetry 03/25/17 03/25/17 03/25/17 00:03 03:24 07:40 Temperature 98.2 F 98.1 F 97.5 F L Pulse Rate 64 74 74 Pulse Rate [ Anterior Bilateral Throughout] Respiratory 18 18 18 Rate Respiratory Rate [Anterior Bilateral Throughout] Blood Pressure 157/70 162/88 176/92 O2 Sat by Pulse 95 96 96 Oximetry - Labs 03/24/17 05:14 03/25/17 05:18 Diabetes panel 03/25/17 Range/Units 05:18 Sodium 142 (137-145) mmol/L Potassium 3.9 (3.6-5.0) mmol/L Chloride 100.1 (98-107) mmol/L Carbon Dioxide 32 H (22-30) mmol/L BUN 20 H (7-17) mg/dL Creatinine 0.4 L (0.7-1.2) mg/dL Glucose 104 H (65-100) mg/dL Calcium 8.4 (8.4-10.2) mg/dL Calcium panel 03/25/17 Range/Units 05:18 Calcium 8.4 (8.4-10.2) mg/dL Pituitary panel 03/25/17 Range/Units 05:18 Sodium 142 (137-145) mmol/L Potassium 3.9 (3.6-5.0) mmol/L Chloride 100.1 (98-107) mmol/L Carbon Dioxide 32 H (22-30) mmol/L BUN 20 H (7-17) mg/dL Creatinine 0.4 L (0.7-1.2) mg/dL Glucose 104 H (65-100) mg/dL Calcium 8.4 (8.4-10.2) mg/dL Adrenal panel 03/25/17 Range/Units 05:18 Sodium 142 (137-145) mmol/L Potassium 3.9 (3.6-5.0) mmol/L Chloride 100.1 (98-107) mmol/L Carbon Dioxide 32 H (22-30) mmol/L BUN 20 H (7-17) mg/dL Creatinine 0.4 L (0.7-1.2) mg/dL Glucose 104 H (65-100) mg/dL Calcium 8.4 (8.4-10.2) mg/dL
[2017-03-25] MEDS: PULMICORT IH SCH ×2 (08:59→20:37)
[2017-03-25] MEDS: BROVANA NEBU IH SCH ×2 (09:00→20:37)
[2017-03-25] MEDS: LASIX IV SCH (10:40)
[2017-03-25] MEDS: PEPCID PO SCH (10:40)
[2017-03-25] MEDS: LOVENOX SUB-Q SCH (10:40)
[2017-03-25] MEDS: CATAPRES-TTS PATCH TD SCH (10:43)
--- NOTE | 2017-03-25 12:01 | Progress Note ---
Assessment and Plan Assessment and plan: Accelerated hypertension. Patient will be started back on home medications by mouth now that she is tolerating diet. --Chronic cholecystitis and pancreatitis. HIDA scan excluded acute cholecystitis. Patient likely had gallstone pancreatitis. Patient has biliary dyskinesia, and possibly a component of chronic cholecystitis. Abdominal pain Resolved. Follow-up with surgery as an outpatient. Biliary dyskinesia. As above. --Acute Diastolic congestive heart failure. Resolving. Left ventricular ejection fraction 50-55%, patient received IV Lasix with significant improvement. Closely monitor input output --Asthma exacerbation. Improved. Continue Oxygen, titrate O2 sats more than 90 % ,duoneb, Pulmicort, Brovana, IV antibiotics, tapering dose of steroids Pulmonary following --Hypophosphatemia; corrected --Moderate to severe protein calorie malnutrition; nutrition supplements and supportive care --Dyslipidemia; on lipid-lowering medications --Full CODE STATUS --DVT prophylaxis; continue Lovenox Disposition; most likely discharge in a.m. if clinically stable. History Interval history: Epigastric pain resolved. Hospitalist Physical - Constitutional Vitals: Temp Pulse Resp BP Pulse Ox 97.5 F L 77 18 176/92 94 03/25/17 07:40 03/25/17 09:15 03/25/17 09:15 03/25/17 07:40 03/25/17 09:02 General appearance: Present: no acute distress, well-nourished - EENT Eyes: Present: PERRL, EOM intact ENT: hearing intact, clear oral mucosa, dentition normal - Neck Neck: Present: supple, normal ROM - Respiratory Respiratory effort: normal Respiratory: bilateral: CTA - Cardiovascular Rhythm: regular Heart Sounds: Present: S1 & S2. Absent: gallop, rub - Extremities Extremities: no ischemia, No edema, Full ROM - Abdominal General gastrointestinal: soft, non-tender, non-distended, normal bowel sounds - Integumentary Integumentary: Present: clear, warm, dry - Neurologic Neurologic: CNII-XII intact, moves all extremities Results - Labs CBC & Chem 7: 03/24/17 05:14 03/25/17 05:18 Labs: Laboratory Last Values WBC 9.6 K/mm3 (4.5-11.0) 03/24/17 05:14 RBC 4.26 M/mm3 (3.65-5.03) 03/24/17 05:14 Hgb 11.5 gm/dl (10.1-14.3) 03/24/17 05:14 Hct 36.1 % (30.3-42.9) 03/24/17 05:14 MCV 85 fl (79-97) 03/24/17 05:14 MCH 27 pg (28-32) L 03/24/17 05:14 MCHC 32 % (30-34) 03/24/17 05:14 RDW 15.0 % (13.2-15.2) 03/24/17 05:14 Plt Count 369 K/mm3 (140-440) 03/24/17 05:14 Lymph % (Auto) 6.6 % (13.4-35.0) L 03/23/17 06:02 [place] % (Auto) 3.9 % (0.0-7.3) 03/23/17 06:02 Eos % (Auto) 0.0 % (0.0-4.3) 03/23/17 06:02 Baso % (Auto) 0.1 % (0.0-1.8) 03/23/17 06:02 Lymph # 0.3 K/mm3 (1.2-5.4) L 03/23/17 06:02 [place] # 0.2 K/mm3 (0.0-0.8) 03/23/17 06:02 Eos # 0.0 K/mm3 (0.0-0.4) 03/23/17 06:02 Baso # 0.0 K/mm3 (0.0-0.1) 03/23/17 06:02 Add Manual Diff Complete 03/24/17 05:14 Total Counted 100 03/24/17 05:14 Seg Neutrophils % [employer] 03/24/17 05:14 Seg Neuts % (Manual) 95.0 % (40.0-70.0) H 03/24/17 05:14 Band Neutrophils % 0 % 03/24/17 05:14 Lymphocytes % (Manual) 4.0 % (13.4-35.0) L 03/24/17 05:14 Reactive Lymphs % (Man) 0 % 03/24/17 05:14 Monocytes % (Manual) 1.0 % (0.0-7.3) 03/24/17 05:14 Eosinophils % (Manual) 0 % (0.0-4.3) 03/24/17 05:14 Basophils % (Manual) 0 % (0.0-1.8) 03/24/17 05:14 Metamyelocytes % 0 % 03/24/17 05:14 Myelocytes % 0 % 03/24/17 05:14 Promyelocytes % 0 % 03/24/17 05:14 Blast Cells % 0 % 03/24/17 05:14 Nucleated RBC % Not Reportable 03/24/17 05:14 Seg Neutrophils # 4.7 K/mm3 (1.8-7.7) 03/23/17 06:02 Seg Neutrophils # Man 9.1 K/mm3 (1.8-7.7) H 03/24/17 05:14 Band Neutrophils # 0.0 K/mm3 03/24/17 05:14 Lymphocytes # (Manual) 0.4 K/mm3 (1.2-5.4) L 03/24/17 05:14 Abs React Lymphs (Man) 0.0 K/mm3 03/24/17 05:14 Monocytes # (Manual) 0.1 K/mm3 (0.0-0.8) 03/24/17 05:14 Eosinophils # (Manual) 0.0 K/mm3 (0.0-0.4) 03/24/17 05:14 Basophils # (Manual) 0.0 K/mm3 (0.0-0.1) 03/24/17 05:14 Metamyelocytes # 0.0 K/mm3 03/24/17 05:14 Myelocytes # 0.0 K/mm3 03/24/17 05:14 Promyelocytes # 0.0 K/mm3 03/24/17 05:14 Blast Cells # 0.0 K/mm3 03/24/17 05:14 WBC Morphology Not Reportable 03/24/17 05:14 Hypersegmented Neuts Not Reportable 03/24/17 05:14 Hyposegmented Neuts Not Reportable 03/24/17 05:14 Hypogranular Neuts Not Reportable 03/24/17 05:14 Smudge Cells Not Reportable 03/24/17 05:14 Toxic Granulation Not Reportable 03/24/17 05:14 Toxic Vacuolation Not Reportable 03/24/17 05:14 Dohle Bodies Not Reportable 03/24/17 05:14 Pelger-Huet Anomaly Not Reportable 03/24/17 05:14 Sunny Rods Not Reportable 03/24/17 05:14 Platelet Estimate Consistent w auto 03/24/17 05:14 Clumped Platelets Not Reportable 03/24/17 05:14 Plt Clumps, EDTA Not Reportable 03/24/17 05:14 Large Platelets Not Reportable 03/24/17 05:14 Giant Platelets Not Reportable 03/24/17 05:14 Platelet Satelliting Not Reportable 03/24/17 05:14 Plt Morphology Comment Not Reportable 03/24/17 05:14 RBC Morphology Not Reportable 03/24/17 05:14 Dimorphic RBCs Not Reportable 03/24/17 05:14 Polychromasia Not Reportable 03/24/17 05:14 Hypochromasia 1+ 03/24/17 05:14 Poikilocytosis Not Reportable 03/24/17 05:14 Anisocytosis Not Reportable 03/24/17 05:14 Microcytosis Not Reportable 03/24/17 05:14 Macrocytosis Not Reportable 03/24/17 05:14 Spherocytes Not Reportable 03/24/17 05:14 Pappenheimer Bodies Not Reportable 03/24/17 05:14 Sickle Cells Not Reportable 03/24/17 05:14 Target Cells Not Reportable 03/24/17 05:14 Tear Drop Cells Not Reportable 03/24/17 05:14 Ovalocytes 1+ 03/24/17 05:14 Helmet Cells Not Reportable 03/24/17 05:14 De Jesus-[place] Bodies Not Reportable 03/24/17 05:14 [place] Rings Not Reportable 03/24/17 05:14 Kim Cells Not Reportable 03/24/17 05:14 Bite Cells Not Reportable 03/24/17 05:14 Crenated Cell Not Reportable 03/24/17 05:14 Elliptocytes Not Reportable 03/24/17 05:14 Acanthocytes (Spur) Not Reportable 03/24/17 05:14 Rouleaux Not Reportable 03/24/17 05:14 Hemoglobin C Crystals Not Reportable 03/24/17 05:14 Schistocytes Not Reportable 03/24/17 05:14 Malaria parasites Not Reportable 03/24/17 05:14 [place] Bodies Not Reportable 03/24/17 05:14 Hem Pathologist Commnt No 03/24/17 05:14 PT 14.4 Sec. (12.2-14.9) 03/17/17 16:36 INR 1.13 (0.87-1.13) 03/17/17 16:36 APTT 29.1 Sec. (24.2-36.6) 03/17/17 16:36 Sodium 142 mmol/L (137-145) 03/25/17 05:18 Potassium 3.9 mmol/L (3.6-5.0) 03/25/17 05:18 Chloride 100.1 mmol/L (98-107) 03/25/17 05:18 Carbon Dioxide 32 mmol/L (22-30) H 03/25/17 05:18 Anion Gap 14 mmol/L 03/25/17 05:18 BUN 20 mg/dL (7-17) H 03/25/17 05:18 Creatinine 0.4 mg/dL (0.7-1.2) L 03/25/17 05:18 Estimated GFR > 60 ml/min 03/25/17 05:18 BUN/Creatinine Ratio 50.00 % 03/25/17 05:18 Glucose 104 mg/dL (65-100) H 03/25/17 05:18 Lactic Acid 1.40 mmol/L (0.7-2.0) 03/17/17 16:36 Calcium 8.4 mg/dL (8.4-10.2) 03/25/17 05:18 Phosphorus 2.80 mg/dL (2.5-4.5) 03/23/17 06:02 Magnesium 2.00 mg/dL (1.7-2.3) 03/25/17 05:18 Total Bilirubin 0.50 mg/dL (0.1-1.2) 03/24/17 05:14 Direct Bilirubin 0.8 mg/dL (0-0.2) H 03/17/17 15:15 Indirect Bilirubin 0.3 mg/dL 03/17/17 15:15 AST 78 units/L (5-40) H 03/24/17 05:14 ALT 132 units/L (7-56) H 03/24/17 05:14 Alkaline Phosphatase 261 units/L (35-129) H 03/24/17 05:14 Total Creatine Kinase 49 units/L (30-135) 03/17/17 16:36 CK-MB (CK-2) 2.0 ng/mL (0.0-4.0) 03/17/17 16:36 CK-MB (CK-2) Rel Index 4.0 (0-4) 03/17/17 16:36 Troponin T < 0.010 ng/mL (0.00-0.029) 03/17/17 21:17 NT-Pro-B Natriuret Pep 1794 pg/mL (0-900) H 03/22/17 09:41 Total Protein 5.6 g/dL (6.3-8.2) L 03/24/17 05:14 Albumin 2.7 g/dL (3.9-5) L 03/24/17 05:14 Albumin/Globulin Ratio 0.9 % 03/24/17 05:14 Amylase 53 units/L (27-131) 03/19/17 04:59 Lipase 71 units/L (13-60) H 03/19/17 04:59 Urine Color Yellow (Yellow) 03/17/17 13:40 Urine Turbidity Clear (Clear) 03/17/17 13:40 Urine pH 5.0 (5.0-7.0) 03/17/17 13:40 Ur Specific [place] 1.019 (1.003-1.030) 03/17/17 13:40 Urine Protein <15 mg/dl mg/dL (Negative) 03/17/17 13:40 Urine Glucose (UA) Neg mg/dL (Negative) 03/17/17 13:40 Urine Ketones Neg mg/dL (Negative) 03/17/17 13:40 Urine Blood Neg (Negative) 03/17/17 13:40 Urine Nitrite Neg (Negative) 03/17/17 13:40 Urine Bilirubin Neg (Negative) 03/17/17 13:40 Urine Urobilinogen < 2.0 mg/dL (<2.0) 03/17/17 13:40 Ur Leukocyte Esterase Neg (Negative) 03/17/17 13:40 Urine WBC (Auto) 3.0 /HPF (0.0-6.0) 03/17/17 13:40 Urine RBC (Auto) 3.0 /HPF (0.0-6.0) 03/17/17 13:40 U Epithel Cells (Auto) 4.0 /HPF (0-13.0) 03/17/17 13:40 Hyaline Casts 2 /LPF 03/17/17 13:40 Urine Mucus Few /HPF 03/17/17 13:40 Blood Type AB POSITIVE 03/17/17 16:36 Antibody Screen Negative 03/17/17 16:36
--- NOTE | 2017-03-25 13:47 | Progress Note ---
Assessment and Plan Imp: 1. Acute cholecystitis/pancreatitis 2. Asthma exac. 3. Acute diastolic CHF 4. Mitral regurg. 5. Pulm HTN, suspect 2/2 #'s 3 and 4 6. Acute respiratory failure, hypoxia 7. Large hiatal hernia; at risk for aspiration 8. Pleural effusions Rec: 1. Repeat IV Lasix; BMP in AM 2. Change to PO Prednisone in AM 3. Nutrition consult for supplements; low-protein state likely contributing to pleural effusions 4. Pulmicort/Brovana/Albuterol 5. Wean O2 to off; check need for home O2 prior to d/c 6. Repeat CXR again in AM; hold off on thoracentesis unless effusions do not resolve with diuresis and improved nutrition 7. On DVT PPx since admit 8. Try to mobilize -> PT evaluation 9. Incentive marisol 10. Resume home BP meds Plan of care reviewed w/ patient/daughter, they understand/agree Subjective Date of service: 03/25/17 Principal diagnosis: SOB, Asthma exac. Interval history: No events. SOB better s/p Lasix. Wheezing better. No chest pain. On 3.5L NC. BP running high. Active Medications Acetaminophen (Tylenol) 650 mg PO Q4H PRN PRN Reason: Pain MILD(1-3)/Fever >100.5/NARVAEZ Last Admin: 03/22/17 19:52 Dose: 650 mg Albuterol (Proventil) 2.5 mg IH Q4H PRN PRN Reason: Shortness Of Breath Last Admin: 03/23/17 13:16 Dose: 2.5 mg Arformoterol Tartrate (Brovana Nebu) 15 mcg IH Q12HRT [facility] Last Admin: 03/25/17 09:00 Dose: 15 mcg Bisacodyl (Dulcolax) 10 mg GA QDAY PRN PRN Reason: Constipation unrelieved by MOM Budesonide (Pulmicort) 0.5 mg IH Q12HRT [facility] Last Admin: 03/25/17 08:59 Dose: 0.5 mg Clonidine HCl (Catapres-Tts Patch) 0.1 mg TD We [facility] Last Admin: 03/25/17 10:43 Dose: 0.1 mg Enoxaparin Sodium (Lovenox) 40 mg SUB-Q QDAY [facility] Last Admin: 03/25/17 10:40 Dose: 40 mg Famotidine (Pepcid) 20 mg PO DAILY [facility] Last Admin: 03/25/17 10:40 Dose: 20 mg Furosemide (Lasix) 20 mg IV QDAY [facility] Last Admin: 03/25/17 10:40 Dose: 20 mg Hydralazine HCl (Apresoline) 25 mg PO BID [facility] Hydrochlorothiazide (Hctz) 12.5 mg PO QDAY [facility] Hydromorphone HCl (Dilaudid) 1 mg IV Q6H PRN PRN Reason: Pain , Severe (7-10) Levofloxacin/Dextrose (Levaquin 750mg/150ml) 750 mg in 150 mls @ 150 mls/hr IV Q48H [facility] PRN Reason: Protocol Last Admin: 03/24/17 09:23 Dose: 150 mls/hr Magnesium Hydroxide (Milk Of Magnesia) 30 ml PO Q4H PRN PRN Reason: Constipation Last Admin: 03/21/17 06:24 Dose: 30 ml Ondansetron HCl (Zofran) 4 mg IV Q3H PRN PRN Reason: N/V unrelieved by Mily Last Admin: 03/18/17 16:02 Dose: 4 mg Prednisone (Deltasone) 40 mg PO QDAY [facility] Simvastatin (Zocor) 20 mg PO QHS [facility] Objective Vital Signs - 12hr 03/25/17 03/25/17 03/25/17 03:24 07:40 09:00 Temperature 98.1 F 97.5 F L Pulse Rate 74 74 Pulse Rate [ 84 Anterior Bilateral Throughout] Respiratory 18 18 Rate Respiratory 18 Rate [Anterior Bilateral Throughout] Blood Pressure 162/88 176/92 O2 Sat by Pulse 96 96 Oximetry 03/25/17 03/25/17 09:02 09:15 Temperature Pulse Rate Pulse Rate [ 77 Anterior Bilateral Throughout] Respiratory Rate Respiratory 18 Rate [Anterior Bilateral Throughout] Blood Pressure O2 Sat by Pulse 94 Oximetry Constitutional: no acute distress, alert Eyes: non-icteric ENT: oropharynx moist Neck: supple Effort: normal Ascultation: Bilateral: diminished breath sounds (bases) Percussion: Right: not dull Cardiovascular: regular rate and rhythm (no mrg) Gastrointestinal: normoactive bowel sounds, soft, non-tender, non-distended Integumentary: normal Extremities: no cyanosis, no edema, pink and warm Neurologic: normal mental status, non-focal exam, pupils equal and round, CN II- XII normal Psychiatric: mood appropriate, affect normal CBC and BMP: 03/24/17 05:14 03/25/17 05:18 ABG, PT/INR, D-dimer: PT/INR, D-dimer PT 14.4 Sec. (12.2-14.9) 03/17/17 16:36 INR 1.13 (0.87-1.13) 03/17/17 16:36 Abnormal lab findings: Abnormal Labs 03/19/17 03/20/17 03/20/17 04:59 05:57 05:57 WBC 11.2 H MCH RDW 15.3 H Lymph % (Auto) 7.4 L Lymph # 0.8 L Seg Neutrophils % 84.3 H Seg Neuts % (Manual) Lymphocytes % (Manual) Seg Neutrophils # 9.4 H Seg Neutrophils # Man Lymphocytes # (Manual) Potassium 3.2 L Carbon Dioxide BUN Creatinine 0.5 L 0.4 L Glucose 113 H Calcium 8.1 L Phosphorus Total Bilirubin 1.40 H AST 53 H ALT 106 H 71 H Alkaline Phosphatase 142 H 141 H NT-Pro-B Natriuret Pep Total Protein 5.7 L 6.1 L Albumin 2.9 L 2.8 L Lipase 71 H 03/21/17 03/22/17 03/23/17 07:43 09:41 06:02 WBC MCH RDW Lymph % (Auto) 6.6 L Lymph # 0.3 L Seg Neutrophils % 89.4 H Seg Neuts % (Manual) Lymphocytes % (Manual) Seg Neutrophils # Seg Neutrophils # Man Lymphocytes # (Manual) Potassium Carbon Dioxide BUN Creatinine 0.3 L Glucose 113 H Calcium 8.1 L Phosphorus 1.50 L Total Bilirubin AST ALT Alkaline Phosphatase NT-Pro-B Natriuret Pep 1794 H Total Protein Albumin Lipase 03/23/17 03/24/17 03/24/17 06:02 05:14 05:14 WBC MCH 27 L RDW Lymph % (Auto) Lymph # Seg Neutrophils % Seg Neuts % (Manual) 95.0 H Lymphocytes % (Manual) 4.0 L Seg Neutrophils # Seg Neutrophils # Man 9.1 H Lymphocytes # (Manual) 0.4 L Potassium Carbon Dioxide 32 H 31 H BUN Creatinine 0.3 L 0.4 L Glucose 129 H 139 H Calcium Phosphorus Total Bilirubin AST 78 H ALT 132 H Alkaline Phosphatase 261 H NT-Pro-B Natriuret Pep Total Protein 5.6 L Albumin 2.7 L Lipase 03/25/17 05:18 WBC MCH RDW Lymph % (Auto) Lymph # Seg Neutrophils % Seg Neuts % (Manual) Lymphocytes % (Manual) Seg Neutrophils # Seg Neutrophils # Man Lymphocytes # (Manual) Potassium Carbon Dioxide 32 H BUN 20 H Creatinine 0.4 L Glucose 104 H Calcium Phosphorus Total Bilirubin AST ALT Alkaline Phosphatase NT-Pro-B Natriuret Pep Total Protein Albumin Lipase Chest x-ray: report reviewed, image reviewed
[2017-03-25] MEDS: ZOCOR PO SCH (21:22)
[2017-03-25] MEDS: APRESOLINE PO SCH (21:22)
[2017-03-26 06:08] LABS: Basophils % (Auto) 0.2 % (0.0-1.8); Eosinophils % (Auto) 0.8 % (0.0-4.3); Hematocrit 38.6 % (30.3-42.9); Hemoglobin 12.7 gm/dl (10.1-14.3); Mean Corpuscular HGB Conc 33 % (30-34); Mean Corpuscular Hemoglobin 28 pg (28-32); Mean Corpuscular Volume 85 fl (79-97); Platelet Count 376 K/mm3 (140-440); Red Blood Count 4.56 M/mm3 (3.65-5.03); Red Cell Distribution Width 15.2 % (13.2-15.2); White Blood Count 8.2 K/mm3 (4.5-11.0)
[2017-03-26 06:10] LABS: Anion Gap 13 mmol/L; Blood Urea Nitrogen 28 mg/dL (7-17); Calcium 8.3 mg/dL (8.4-10.2); Carbon Dioxide 31 mmol/L (22-30); Chloride 100.7 mmol/L (98-107); Glucose 73 mg/dL (65-100); Potassium 3.1 mmol/L (3.6-5.0); Sodium 142 mmol/L (137-145)
[2017-03-26] MEDS: BROVANA NEBU IH SCH ×2 (07:35→20:41)
[2017-03-26] MEDS: PULMICORT IH SCH ×2 (07:35→20:41)
[2017-03-26] MEDS: LEVAQUIN 750MG/150ML 750 MG/150 ML BAG IV SCH (10:31)
[2017-03-26] MEDS: LOVENOX SUB-Q SCH (10:32)
[2017-03-26] MEDS: HCTZ PO SCH (10:33)
[2017-03-26] MEDS: APRESOLINE PO SCH ×2 (10:33→21:10)
[2017-03-26] MEDS: DELTASONE PO SCH (10:34)
[2017-03-26] MEDS: LASIX IV SCH (10:34)
[2017-03-26] MEDS: PEPCID PO SCH (10:34)
--- NOTE | 2017-03-26 10:53 | XRay Report ---
CHEST 2 VIEWS INDICATION: Pleural effusions. COMPARISON: 03/24/2017 FINDINGS: Frontal and lateral chest radiographs again demonstrate hazy bibasilar opacities, left more than right, representing pleural effusions/atelectasis/consolidation. Left hemidiaphragm again obscured. Stable cardiomediastinal silhouette, including a large, approximately 13 cm hiatal hernia with air-fluid level. Slight aortic knob calcifications, possible right suprahilar scarring, a left upper extremity PICC tip near the cavoatrial junction and demineralized bones with various degenerative changes again noted. CONCLUSION: No significant interval change with bilateral pleural effusions, large hiatal hernia and left upper extremity PICC again noted, as described. Thank you for the opportunity to participate in this patient's care.
--- NOTE | 2017-03-26 11:09 | Progress Note ---
Assessment and Plan Assessment and plan: Accelerated hypertension. Blood pressure better controlled. --Chronic cholecystitis and pancreatitis. HIDA scan excluded acute cholecystitis. Patient likely had gallstone pancreatitis. Patient has biliary dyskinesia, and possibly a component of chronic cholecystitis. Abdominal pain Resolved. Follow-up with surgery as an outpatient. Biliary dyskinesia. As above. --Acute Diastolic congestive heart failure. Resolving. Left ventricular ejection fraction 50-55%, patient received IV Lasix with significant improvement. Closely monitor input output --Asthma exacerbation. Improved. Continue Oxygen, titrate O2 sats more than 90 % ,duoneb, Pulmicort, Brovana, IV antibiotics, tapering dose of steroids Pulmonary following --Hypokalemia. Replete potassium. --Hypophosphatemia; corrected --Moderate to severe protein calorie malnutrition; nutrition supplements and supportive care --Dyslipidemia; on lipid-lowering medications --Full CODE STATUS --DVT prophylaxis; continue Lovenox --Deconditioning. PT evaluation. History Interval history: Epigastric pain resolved. Hospitalist Physical - Constitutional Vitals: Temp Pulse Resp BP Pulse Ox 98.2 F 101 H 20 152/76 97 03/26/17 09:15 03/26/17 10:33 03/26/17 09:15 03/26/17 10:33 03/26/17 10:00 General appearance: Present: no acute distress, well-nourished - EENT Eyes: Present: PERRL, EOM intact ENT: hearing intact, clear oral mucosa, dentition normal - Neck Neck: Present: supple, normal ROM - Respiratory Respiratory effort: normal Respiratory: bilateral: CTA - Cardiovascular Rhythm: regular Heart Sounds: Present: S1 & S2. Absent: gallop, rub - Extremities Extremities: no ischemia, No edema, Full ROM - Abdominal General gastrointestinal: soft, non-tender, non-distended, normal bowel sounds - Integumentary Integumentary: Present: clear, warm, dry - Neurologic Neurologic: CNII-XII intact, moves all extremities Results - Labs CBC & Chem 7: 03/26/17 04:00 03/26/17 04:00 Labs: Laboratory Last Values WBC 8.2 K/mm3 (4.5-11.0) 03/26/17 04:00 RBC 4.56 M/mm3 (3.65-5.03) 03/26/17 04:00 Hgb 12.7 gm/dl (10.1-14.3) 03/26/17 04:00 Hct 38.6 % (30.3-42.9) 03/26/17 04:00 MCV 85 fl (79-97) 03/26/17 04:00 MCH 28 pg (28-32) 03/26/17 04:00 MCHC 33 % (30-34) 03/26/17 04:00 RDW 15.2 % (13.2-15.2) 03/26/17 04:00 Plt Count 376 K/mm3 (140-440) 03/26/17 04:00 Lymph % (Auto) 17.4 % (13.4-35.0) 03/26/17 04:00 [place] % (Auto) 8.4 % (0.0-7.3) H 03/26/17 04:00 Eos % (Auto) 0.8 % (0.0-4.3) 03/26/17 04:00 Baso % (Auto) 0.2 % (0.0-1.8) 03/26/17 04:00 Lymph # 1.4 K/mm3 (1.2-5.4) 03/26/17 04:00 [place] # 0.7 K/mm3 (0.0-0.8) 03/26/17 04:00 Eos # 0.1 K/mm3 (0.0-0.4) 03/26/17 04:00 Baso # 0.0 K/mm3 (0.0-0.1) 03/26/17 04:00 Add Manual Diff Complete 03/24/17 05:14 Total Counted 100 03/24/17 05:14 Seg Neutrophils % 73.2 % (40.0-70.0) H 03/26/17 04:00 Seg Neuts % (Manual) 95.0 % (40.0-70.0) H 03/24/17 05:14 Band Neutrophils % 0 % 03/24/17 05:14 Lymphocytes % (Manual) 4.0 % (13.4-35.0) L 03/24/17 05:14 Reactive Lymphs % (Man) 0 % 03/24/17 05:14 Monocytes % (Manual) 1.0 % (0.0-7.3) 03/24/17 05:14 Eosinophils % (Manual) 0 % (0.0-4.3) 03/24/17 05:14 Basophils % (Manual) 0 % (0.0-1.8) 03/24/17 05:14 Metamyelocytes % 0 % 03/24/17 05:14 Myelocytes % 0 % 03/24/17 05:14 Promyelocytes % 0 % 03/24/17 05:14 Blast Cells % 0 % 03/24/17 05:14 Nucleated RBC % Not Reportable 03/24/17 05:14 Seg Neutrophils # 6.0 K/mm3 (1.8-7.7) 03/26/17 04:00 Seg Neutrophils # Man 9.1 K/mm3 (1.8-7.7) H 03/24/17 05:14 Band Neutrophils # 0.0 K/mm3 03/24/17 05:14 Lymphocytes # (Manual) 0.4 K/mm3 (1.2-5.4) L 03/24/17 05:14 Abs React Lymphs (Man) 0.0 K/mm3 03/24/17 05:14 Monocytes # (Manual) 0.1 K/mm3 (0.0-0.8) 03/24/17 05:14 Eosinophils # (Manual) 0.0 K/mm3 (0.0-0.4) 03/24/17 05:14 Basophils # (Manual) 0.0 K/mm3 (0.0-0.1) 03/24/17 05:14 Metamyelocytes # 0.0 K/mm3 03/24/17 05:14 Myelocytes # 0.0 K/mm3 03/24/17 05:14 Promyelocytes # 0.0 K/mm3 03/24/17 05:14 Blast Cells # 0.0 K/mm3 03/24/17 05:14 WBC Morphology Not Reportable 03/24/17 05:14 Hypersegmented Neuts Not Reportable 03/24/17 05:14 Hyposegmented Neuts Not Reportable 03/24/17 05:14 Hypogranular Neuts Not Reportable 03/24/17 05:14 Smudge Cells Not Reportable 03/24/17 05:14 Toxic Granulation Not Reportable 03/24/17 05:14 Toxic Vacuolation Not Reportable 03/24/17 05:14 Dohle Bodies Not Reportable 03/24/17 05:14 Pelger-Huet Anomaly Not Reportable 03/24/17 05:14 Sunny Rods Not Reportable 03/24/17 05:14 Platelet Estimate Consistent w auto 03/24/17 05:14 Clumped Platelets Not Reportable 03/24/17 05:14 Plt Clumps, EDTA Not Reportable 03/24/17 05:14 Large Platelets Not Reportable 03/24/17 05:14 Giant Platelets Not Reportable 03/24/17 05:14 Platelet Satelliting Not Reportable 03/24/17 05:14 Plt Morphology Comment Not Reportable 03/24/17 05:14 RBC Morphology Not Reportable 03/24/17 05:14 Dimorphic RBCs Not Reportable 03/24/17 05:14 Polychromasia Not Reportable 03/24/17 05:14 Hypochromasia 1+ 03/24/17 05:14 Poikilocytosis Not Reportable 03/24/17 05:14 Anisocytosis Not Reportable 03/24/17 05:14 Microcytosis Not Reportable 03/24/17 05:14 Macrocytosis Not Reportable 03/24/17 05:14 Spherocytes Not Reportable 03/24/17 05:14 Pappenheimer Bodies Not Reportable 03/24/17 05:14 Sickle Cells Not Reportable 03/24/17 05:14 Target Cells Not Reportable 03/24/17 05:14 Tear Drop Cells Not Reportable 03/24/17 05:14 Ovalocytes 1+ 03/24/17 05:14 Helmet Cells Not Reportable 03/24/17 05:14 De Jesus-[place] Bodies Not Reportable 03/24/17 05:14 [place] Rings Not Reportable 03/24/17 05:14 Kim Cells Not Reportable 03/24/17 05:14 Bite Cells Not Reportable 03/24/17 05:14 Crenated Cell Not Reportable 03/24/17 05:14 Elliptocytes Not Reportable 03/24/17 05:14 Acanthocytes (Spur) Not Reportable 03/24/17 05:14 Rouleaux Not Reportable 03/24/17 05:14 Hemoglobin C Crystals Not Reportable 03/24/17 05:14 Schistocytes Not Reportable 03/24/17 05:14 Malaria parasites Not Reportable 03/24/17 05:14 Paolo Bodies Not Reportable 03/24/17 05:14 Hem Pathologist Commnt No 03/24/17 05:14 PT 14.4 Sec. (12.2-14.9) 03/17/17 16:36 INR 1.13 (0.87-1.13) 03/17/17 16:36 APTT 29.1 Sec. (24.2-36.6) 03/17/17 16:36 Sodium 142 mmol/L (137-145) 03/26/17 04:00 Potassium 3.1 mmol/L (3.6-5.0) L D 03/26/17 04:00 Chloride 100.7 mmol/L (98-107) 03/26/17 04:00 Carbon Dioxide 31 mmol/L (22-30) H 03/26/17 04:00 Anion Gap 13 mmol/L 03/26/17 04:00 BUN 28 mg/dL (7-17) H 03/26/17 04:00 Creatinine 0.4 mg/dL (0.7-1.2) L 03/26/17 04:00 Estimated GFR > 60 ml/min 03/26/17 04:00 BUN/Creatinine Ratio 70.00 % 03/26/17 04:00 Glucose 73 mg/dL (65-100) 03/26/17 04:00 Lactic Acid 1.40 mmol/L (0.7-2.0) 03/17/17 16:36 Calcium 8.3 mg/dL (8.4-10.2) L 03/26/17 04:00 Phosphorus 2.80 mg/dL (2.5-4.5) 03/23/17 06:02 Magnesium 2.00 mg/dL (1.7-2.3) 03/25/17 05:18 Total Bilirubin 0.50 mg/dL (0.1-1.2) 03/24/17 05:14 Direct Bilirubin 0.8 mg/dL (0-0.2) H 03/17/17 15:15 Indirect Bilirubin 0.3 mg/dL 03/17/17 15:15 AST 78 units/L (5-40) H 03/24/17 05:14 ALT 132 units/L (7-56) H 03/24/17 05:14 Alkaline Phosphatase 261 units/L (35-129) H 03/24/17 05:14 Total Creatine Kinase 49 units/L (30-135) 03/17/17 16:36 CK-MB (CK-2) 2.0 ng/mL (0.0-4.0) 03/17/17 16:36 CK-MB (CK-2) Rel Index 4.0 (0-4) 03/17/17 16:36 Troponin T < 0.010 ng/mL (0.00-0.029) 03/17/17 21:17 NT-Pro-B Natriuret Pep 1794 pg/mL (0-900) H 03/22/17 09:41 Total Protein 5.6 g/dL (6.3-8.2) L 03/24/17 05:14 Albumin 2.7 g/dL (3.9-5) L 03/24/17 05:14 Albumin/Globulin Ratio 0.9 % 03/24/17 05:14 Amylase 53 units/L (27-131) 03/19/17 04:59 Lipase 71 units/L (13-60) H 03/19/17 04:59 Urine Color Yellow (Yellow) 03/17/17 13:40 Urine Turbidity Clear (Clear) 03/17/17 13:40 Urine pH 5.0 (5.0-7.0) 03/17/17 13:40 Ur Specific [place] 1.019 (1.003-1.030) 03/17/17 13:40 Urine Protein <15 mg/dl mg/dL (Negative) 03/17/17 13:40 Urine Glucose (UA) Neg mg/dL (Negative) 03/17/17 13:40 Urine Ketones Neg mg/dL (Negative) 03/17/17 13:40 Urine Blood Neg (Negative) 03/17/17 13:40 Urine Nitrite Neg (Negative) 03/17/17 13:40 Urine Bilirubin Neg (Negative) 03/17/17 13:40 Urine Urobilinogen < 2.0 mg/dL (<2.0) 03/17/17 13:40 Ur Leukocyte Esterase Neg (Negative) 03/17/17 13:40 Urine WBC (Auto) 3.0 /HPF (0.0-6.0) 03/17/17 13:40 Urine RBC (Auto) 3.0 /HPF (0.0-6.0) 03/17/17 13:40 U Epithel Cells (Auto) 4.0 /HPF (0-13.0) 03/17/17 13:40 Hyaline Casts 2 /LPF 03/17/17 13:40 Urine Mucus Few /HPF 03/17/17 13:40 Blood Type AB POSITIVE 03/17/17 16:36 Antibody Screen Negative 03/17/17 16:36
--- NOTE | 2017-03-26 12:02 | Progress Note ---
Assessment and Plan Imp: 1. Acute cholecystitis/pancreatitis 2. Asthma exac. 3. Acute diastolic CHF 4. Mitral regurg. 5. Pulm HTN, suspect 2/2 #'s 3 and 4 6. Acute respiratory failure, hypoxia 7. Large hiatal hernia; at risk for aspiration 8. Pleural effusions Rec: 1. Hold Lasix given increasing BUN/Cr ratio 2. Changed to PO Prednisone in AM 3. Nutrition consult for supplements; low-protein state likely contributing to pleural effusions 4. Pulmicort/Brovana/Albuterol 5. Wean O2 to off; check need for home O2 prior to d/c 6. On DVT PPx since admit 7. Try to mobilize -> PT evaluation 8. Incentive marisol 9. Effusions may be related to her abdominal issues and have not adequately resolved with Lasix; recommend diagnostic and therapeutic thoracentesis of the largest one; risks, benefits explained and patient is willing to proceed (she also wants to d/w her son as well) Plan of care reviewed w/ patient/daughter, they understand/agree Subjective Date of service: 03/26/17 Principal diagnosis: SOB, Asthma exac. Interval history: No events. SOB better s/p Lasix. Wheezing better. No chest pain. On 1L NC. BP better. Active Medications Acetaminophen (Tylenol) 650 mg PO Q4H PRN PRN Reason: Pain MILD(1-3)/Fever >100.5/NARVAEZ Last Admin: 03/22/17 19:52 Dose: 650 mg Albuterol (Proventil) 2.5 mg IH Q4H PRN PRN Reason: Shortness Of Breath Last Admin: 03/23/17 13:16 Dose: 2.5 mg Arformoterol Tartrate (Brovana Nebu) 15 mcg IH Q12HRT [facility] Last Admin: 03/26/17 07:35 Dose: 15 mcg Bisacodyl (Dulcolax) 10 mg [place] QDAY PRN PRN Reason: Constipation unrelieved by MOM Budesonide (Pulmicort) 0.5 mg IH Q12HRT [facility] Last Admin: 03/26/17 07:35 Dose: 0.5 mg Clonidine HCl (Catapres-Tts Patch) 0.1 mg TD We [facility] Last Admin: 03/25/17 10:43 Dose: 0.1 mg Enoxaparin Sodium (Lovenox) 40 mg SUB-Q QDAY [facility] Last Admin: 03/26/17 10:32 Dose: 40 mg Famotidine (Pepcid) 20 mg PO DAILY [facility] Last Admin: 03/26/17 10:34 Dose: 20 mg Hydralazine HCl (Apresoline) 25 mg PO BID [facility] Last Admin: 03/26/17 10:33 Dose: 25 mg Hydrochlorothiazide (Hctz) 12.5 mg PO QDAY [facility] Last Admin: 03/26/17 10:33 Dose: 12.5 mg Hydromorphone HCl (Dilaudid) 1 mg IV Q6H PRN PRN Reason: Pain , Severe (7-10) Levofloxacin (Levaquin) 750 mg PO Q48HR [facility] Magnesium Hydroxide (Milk Of Magnesia) 30 ml PO Q4H PRN PRN Reason: Constipation Last Admin: 03/21/17 06:24 Dose: 30 ml Ondansetron HCl (Zofran) 4 mg IV Q3H PRN PRN Reason: N/V unrelieved by Mily Last Admin: 03/18/17 16:02 Dose: 4 mg Prednisone (Deltasone) 40 mg PO QDAY [facility] Last Admin: 03/26/17 10:34 Dose: 40 mg Simvastatin (Zocor) 20 mg PO QHS [facility] Last Admin: 03/25/17 21:22 Dose: 20 mg Objective Vital Signs - 12hr 03/26/17 03/26/17 03/26/17 01:00 04:00 07:40 Temperature 98.0 F 97.6 F Pulse Rate 72 68 Pulse Rate [ 101 H Anterior Bilateral Throughout] Pulse Rate [ From Monitor] Respiratory 20 22 Rate Respiratory 18 Rate [Anterior Bilateral Throughout] Blood Pressure Blood Pressure 140/70 138/78 [Right] O2 Sat by Pulse 98 97 Oximetry 03/26/17 03/26/17 03/26/17 07:55 09:15 10:00 Temperature 98.2 F Pulse Rate 101 H Pulse Rate [ 102 H Anterior Bilateral Throughout] Pulse Rate [ 90 From Monitor] Respiratory 20 Rate Respiratory 18 Rate [Anterior Bilateral Throughout] Blood Pressure Blood Pressure 152/76 [Right] O2 Sat by Pulse 96 96 Oximetry 03/26/17 03/26/17 10:33 11:34 Temperature 98.7 F Pulse Rate 101 H 92 H Pulse Rate [ Anterior Bilateral Throughout] Pulse Rate [ From Monitor] Respiratory 20 Rate Respiratory Rate [Anterior Bilateral Throughout] Blood Pressure 152/76 Blood Pressure 123/74 [Right] O2 Sat by Pulse 97 Oximetry Constitutional: no acute distress, alert Eyes: non-icteric ENT: oropharynx moist Neck: supple Effort: normal Ascultation: Bilateral: diminished breath sounds (bases) Cardiovascular: regular rate and rhythm (no mrg) Gastrointestinal: normoactive bowel sounds, soft, non-tender, non-distended Integumentary: normal Extremities: no cyanosis, no edema, pink and warm Neurologic: normal mental status, non-focal exam, pupils equal and round, CN II- XII normal Psychiatric: mood appropriate, affect normal CBC and BMP: 03/26/17 04:00 03/26/17 04:00 ABG, PT/INR, D-dimer: PT/INR, D-dimer PT 14.4 Sec. (12.2-14.9) 03/17/17 16:36 INR 1.13 (0.87-1.13) 03/17/17 16:36 Abnormal lab findings: Abnormal Labs 03/19/17 03/20/17 03/20/17 04:59 05:57 05:57 WBC 11.2 H MCH RDW 15.3 H Lymph % (Auto) 7.4 L [place] % (Auto) Lymph # 0.8 L Seg Neutrophils % 84.3 H Seg Neuts % (Manual) Lymphocytes % (Manual) Seg Neutrophils # 9.4 H Seg Neutrophils # Man Lymphocytes # (Manual) Potassium 3.2 L Carbon Dioxide BUN Creatinine 0.5 L 0.4 L Glucose 113 H Calcium 8.1 L Phosphorus Total Bilirubin 1.40 H AST 53 H ALT 106 H 71 H Alkaline Phosphatase 142 H 141 H NT-Pro-B Natriuret Pep Total Protein 5.7 L 6.1 L Albumin 2.9 L 2.8 L Lipase 71 H 03/21/17 03/22/17 03/23/17 07:43 09:41 06:02 WBC MCH RDW Lymph % (Auto) 6.6 L [place] % (Auto) Lymph # 0.3 L Seg Neutrophils % 89.4 H Seg Neuts % (Manual) Lymphocytes % (Manual) Seg Neutrophils # Seg Neutrophils # Man Lymphocytes # (Manual) Potassium Carbon Dioxide BUN Creatinine 0.3 L Glucose 113 H Calcium 8.1 L Phosphorus 1.50 L Total Bilirubin AST ALT Alkaline Phosphatase NT-Pro-B Natriuret Pep 1794 H Total Protein Albumin Lipase 03/23/17 03/24/17 03/24/17 06:02 05:14 05:14 WBC MCH 27 L RDW Lymph % (Auto) [place] % (Auto) Lymph # Seg Neutrophils % Seg Neuts % (Manual) 95.0 H Lymphocytes % (Manual) 4.0 L Seg Neutrophils # Seg Neutrophils # Man 9.1 H Lymphocytes # (Manual) 0.4 L Potassium Carbon Dioxide 32 H 31 H BUN Creatinine 0.3 L 0.4 L Glucose 129 H 139 H Calcium Phosphorus Total Bilirubin AST 78 H ALT 132 H Alkaline Phosphatase 261 H NT-Pro-B Natriuret Pep Total Protein 5.6 L Albumin 2.7 L Lipase 03/25/17 03/26/17 03/26/17 05:18 04:00 04:00 WBC MCH RDW Lymph % (Auto) [place] % (Auto) 8.4 H Lymph # Seg Neutrophils % 73.2 H Seg Neuts % (Manual) Lymphocytes % (Manual) Seg Neutrophils # Seg Neutrophils # Man Lymphocytes # (Manual) Potassium 3.1 L D Carbon Dioxide 32 H 31 H BUN 20 H 28 H Creatinine 0.4 L 0.4 L Glucose 104 H Calcium 8.3 L Phosphorus Total Bilirubin AST ALT Alkaline Phosphatase NT-Pro-B Natriuret Pep Total Protein Albumin Lipase Chest x-ray: report reviewed, image reviewed (no change in small to mod effusions; edema from 03/20/17 film is better)
[2017-03-26] MEDS: ZOCOR PO SCH (21:10)
[2017-03-26] MEDS: TYLENOL PO PRN (22:12)
[2017-03-27 06:07] LABS: Hemoglobin 12.6 gm/dl (10.1-14.3); Mean Corpuscular HGB Conc 33 % (30-34); Mean Corpuscular Hemoglobin 28 pg (28-32); Mean Corpuscular Volume 84 fl (79-97); Platelet Count 396 K/mm3 (140-440); Red Blood Count 4.55 M/mm3 (3.65-5.03); Red Cell Distribution Width 15.3 % (13.2-15.2)
[2017-03-27 06:27] LABS: Anion Gap 15 mmol/L; Blood Urea Nitrogen 21 mg/dL (7-17); Calcium 8.3 mg/dL (8.4-10.2); Carbon Dioxide 32 mmol/L (22-30); Chloride 98.5 mmol/L (98-107); Glucose 79 mg/dL (65-100); Potassium 3.6 mmol/L (3.6-5.0); Sodium 142 mmol/L (137-145)
[2017-03-27 07:02] LABS: Albumin 2.8 g/dL (3.9-5); Total Protein 5.1 g/dL (6.3-8.2)
[2017-03-27 09:17] LABS: Basophils % (Manual) 0 % (0.0-1.8); Blastocytes % (Manual) 0 %; Diff Status Complete; RBC Morphology Normal
[2017-03-27] MEDS: PULMICORT IH SCH (09:45)
[2017-03-27] MEDS: BROVANA NEBU IH SCH (09:45)
[2017-03-27] MEDS: LOVENOX SUB-Q SCH (10:00)
[2017-03-27 10:13] LABS: INR 1.14 (0.87-1.13)
--- NOTE | 2017-03-27 10:22 | Progress Note ---
Assessment and Plan Assessment and plan: --Bilateral pleural effusions. Diagnostic and therapeutic thoracentesis per pulmonary. --Chronic cholecystitis and pancreatitis. HIDA scan excluded acute cholecystitis. Patient likely had gallstone pancreatitis. Patient has biliary dyskinesia, and possibly a component of chronic cholecystitis. Abdominal pain Resolved. Follow-up with surgery as an outpatient. Biliary dyskinesia. As above. --Acute Diastolic congestive heart failure. Resolving. Left ventricular ejection fraction 50-55%, patient received IV Lasix with significant improvement. Closely monitor input output --Asthma exacerbation. Improved. Continue Oxygen, titrate O2 sats more than 90 % ,duoneb, Pulmicort, Brovana, IV antibiotics, tapering dose of steroids Pulmonary following. Evaluate for home O2 prior to discharge. --Accelerated hypertension. Blood pressure better controlled. --Hypokalemia. Replete potassium. --Hypophosphatemia; corrected --Moderate to severe protein calorie malnutrition; nutrition supplements and supportive care --Dyslipidemia; on lipid-lowering medications --Full CODE STATUS --DVT prophylaxis; continue Lovenox --Deconditioning. PT recommends home health PT.. History Interval history: Epigastric pain resolved. No new issues overnight. Hospitalist Physical - Constitutional Vitals: Temp Pulse Resp BP Pulse Ox 98.0 F 79 20 136/75 93 03/27/17 00:01 03/27/17 00:01 03/27/17 00:01 03/27/17 00:01 03/27/17 00:01 General appearance: Present: no acute distress, well-nourished - EENT Eyes: Present: PERRL, EOM intact ENT: hearing intact, clear oral mucosa, dentition normal - Neck Neck: Present: supple, normal ROM - Respiratory Respiratory effort: normal Respiratory: bilateral: CTA - Cardiovascular Rhythm: regular Heart Sounds: Present: S1 & S2. Absent: gallop, rub - Extremities Extremities: no ischemia, No edema, Full ROM - Abdominal General gastrointestinal: soft, non-tender, non-distended, normal bowel sounds - Integumentary Integumentary: Present: clear, warm, dry - Neurologic Neurologic: CNII-XII intact, moves all extremities Results - Labs CBC & Chem 7: 03/27/17 05:03 03/27/17 05:03 Labs: Laboratory Last Values WBC 9.0 K/mm3 (4.5-11.0) 03/27/17 05:03 RBC 4.55 M/mm3 (3.65-5.03) 03/27/17 05:03 Hgb 12.6 gm/dl (10.1-14.3) 03/27/17 05:03 Hct 38.0 % (30.3-42.9) 03/27/17 05:03 MCV 84 fl (79-97) 03/27/17 05:03 MCH 28 pg (28-32) 03/27/17 05:03 MCHC 33 % (30-34) 03/27/17 05:03 RDW 15.3 % (13.2-15.2) H 03/27/17 05:03 Plt Count 396 K/mm3 (140-440) 03/27/17 05:03 Lymph % (Auto) 17.4 % (13.4-35.0) 03/26/17 04:00 [place] % (Auto) 8.4 % (0.0-7.3) H 03/26/17 04:00 Eos % (Auto) 0.8 % (0.0-4.3) 03/26/17 04:00 Baso % (Auto) 0.2 % (0.0-1.8) 03/26/17 04:00 Lymph # 1.4 K/mm3 (1.2-5.4) 03/26/17 04:00 [place] # 0.7 K/mm3 (0.0-0.8) 03/26/17 04:00 Eos # 0.1 K/mm3 (0.0-0.4) 03/26/17 04:00 Baso # 0.0 K/mm3 (0.0-0.1) 03/26/17 04:00 Add Manual Diff Complete 03/27/17 05:03 Total Counted 100 03/27/17 05:03 Seg Neutrophils % 73.2 % (40.0-70.0) H 03/26/17 04:00 Seg Neuts % (Manual) 90.0 % (40.0-70.0) H 03/27/17 05:03 Band Neutrophils % 0 % 03/27/17 05:03 Lymphocytes % (Manual) 3.0 % (13.4-35.0) L 03/27/17 05:03 Reactive Lymphs % (Man) 0 % 03/27/17 05:03 Monocytes % (Manual) 4.0 % (0.0-7.3) 03/27/17 05:03 Eosinophils % (Manual) 1.0 % (0.0-4.3) 03/27/17 05:03 Basophils % (Manual) 0 % (0.0-1.8) 03/27/17 05:03 Metamyelocytes % 1.0 % 03/27/17 05:03 Myelocytes % 1.0 % 03/27/17 05:03 Promyelocytes % 0 % 03/27/17 05:03 Blast Cells % 0 % 03/27/17 05:03 Nucleated RBC % Not Reportable 03/27/17 05:03 Seg Neutrophils # 6.0 K/mm3 (1.8-7.7) 03/26/17 04:00 Seg Neutrophils # Man 8.1 K/mm3 (1.8-7.7) H 03/27/17 05:03 Band Neutrophils # 0.0 K/mm3 03/27/17 05:03 Lymphocytes # (Manual) 0.3 K/mm3 (1.2-5.4) L 03/27/17 05:03 Abs React Lymphs (Man) 0.0 K/mm3 03/27/17 05:03 Monocytes # (Manual) 0.4 K/mm3 (0.0-0.8) 03/27/17 05:03 Eosinophils # (Manual) 0.1 K/mm3 (0.0-0.4) 03/27/17 05:03 Basophils # (Manual) 0.0 K/mm3 (0.0-0.1) 03/27/17 05:03 Metamyelocytes # 0.1 K/mm3 03/27/17 05:03 Myelocytes # 0.1 K/mm3 03/27/17 05:03 Promyelocytes # 0.0 K/mm3 03/27/17 05:03 Blast Cells # 0.0 K/mm3 03/27/17 05:03 WBC Morphology Not Reportable 03/27/17 05:03 Hypersegmented Neuts Not Reportable 03/27/17 05:03 Hyposegmented Neuts Not Reportable 03/27/17 05:03 Hypogranular Neuts Not Reportable 03/27/17 05:03 Smudge Cells Not Reportable 03/27/17 05:03 Toxic Granulation Not Reportable 03/27/17 05:03 Toxic Vacuolation Not Reportable 03/27/17 05:03 Dohle Bodies Not Reportable 03/27/17 05:03 Pelger-Huet Anomaly Not Reportable 03/27/17 05:03 Sunny Rods Not Reportable 03/27/17 05:03 Platelet Estimate Appears normal 03/27/17 05:03 Clumped Platelets Not Reportable 03/27/17 05:03 Plt Clumps, EDTA Not Reportable 03/27/17 05:03 Large Platelets Not Reportable 03/27/17 05:03 Giant Platelets Not Reportable 03/27/17 05:03 Platelet Satelliting Not Reportable 03/27/17 05:03 Plt Morphology Comment Not Reportable 03/27/17 05:03 RBC Morphology Normal 03/27/17 05:03 Dimorphic RBCs Not Reportable 03/27/17 05:03 Polychromasia Not Reportable 03/27/17 05:03 Hypochromasia Not Reportable 03/27/17 05:03 Poikilocytosis Not Reportable 03/27/17 05:03 Anisocytosis Not Reportable 03/27/17 05:03 Microcytosis Not Reportable 03/27/17 05:03 Macrocytosis Not Reportable 03/27/17 05:03 Spherocytes Not Reportable 03/27/17 05:03 Pappenheimer Bodies Not Reportable 03/27/17 05:03 Sickle Cells Not Reportable 03/27/17 05:03 Target Cells Not Reportable 03/27/17 05:03 Tear Drop Cells Not Reportable 03/27/17 05:03 Ovalocytes Not Reportable 03/27/17 05:03 Helmet Cells Not Reportable 03/27/17 05:03 De [place] Bodies Not Reportable 03/27/17 05:03 [place] Rings Not Reportable 03/27/17 05:03 [place] Cells Not Reportable 03/27/17 05:03 Bite Cells Not Reportable 03/27/17 05:03 Crenated Cell Not Reportable 03/27/17 05:03 Elliptocytes Not Reportable 03/27/17 05:03 Acanthocytes (Spur) Not Reportable 03/27/17 05:03 Rouleaux Not Reportable 03/27/17 05:03 Hemoglobin C Crystals Not Reportable 03/27/17 05:03 Schistocytes Not Reportable 03/27/17 05:03 Malaria parasites Not Reportable 03/27/17 05:03 [place] Bodies Not Reportable 03/27/17 05:03 Hem Pathologist Commnt No 03/27/17 05:03 PT 14.5 Sec. (12.2-14.9) 03/27/17 09:29 INR 1.14 (0.87-1.13) H 03/27/17 09:29 APTT 29.1 Sec. (24.2-36.6) 03/17/17 16:36 Sodium 142 mmol/L (137-145) 03/27/17 05:03 Potassium 3.6 mmol/L (3.6-5.0) 03/27/17 05:03 Chloride 98.5 mmol/L (98-107) 03/27/17 05:03 Carbon Dioxide 32 mmol/L (22-30) H 03/27/17 05:03 Anion Gap 15 mmol/L 03/27/17 05:03 BUN 21 mg/dL (7-17) H 03/27/17 05:03 Creatinine 0.4 mg/dL (0.7-1.2) L 03/27/17 05:03 Estimated GFR > 60 ml/min 03/27/17 05:03 BUN/Creatinine Ratio 52.50 % 03/27/17 05:03 Glucose 79 mg/dL (65-100) 03/27/17 05:03 Lactic Acid 1.40 mmol/L (0.7-2.0) 03/17/17 16:36 Calcium 8.3 mg/dL (8.4-10.2) L 03/27/17 05:03 Phosphorus 2.80 mg/dL (2.5-4.5) 03/23/17 06:02 Magnesium 2.00 mg/dL (1.7-2.3) 03/25/17 05:18 Total Bilirubin 0.50 mg/dL (0.1-1.2) 03/24/17 05:14 Direct Bilirubin 0.8 mg/dL (0-0.2) H 03/17/17 15:15 Indirect Bilirubin 0.3 mg/dL 03/17/17 15:15 AST 78 units/L (5-40) H 03/24/17 05:14 ALT 132 units/L (7-56) H 03/24/17 05:14 Alkaline Phosphatase 261 units/L (35-129) H 03/24/17 05:14 Lactate Dehydrogenase 209 units/L (91-180) H 03/27/17 05:03 Total Creatine Kinase 49 units/L (30-135) 03/17/17 16:36 CK-MB (CK-2) 2.0 ng/mL (0.0-4.0) 03/17/17 16:36 CK-MB (CK-2) Rel Index 4.0 (0-4) 03/17/17 16:36 Troponin T < 0.010 ng/mL (0.00-0.029) 03/17/17 21:17 NT-Pro-B Natriuret Pep 1794 pg/mL (0-900) H 03/22/17 09:41 Total Protein 5.1 g/dL (6.3-8.2) L 03/27/17 05:03 Albumin 2.8 g/dL (3.9-5) L 03/27/17 05:03 Albumin/Globulin Ratio 0.9 % 03/24/17 05:14 Amylase 53 units/L (27-131) 03/19/17 04:59 Lipase 71 units/L (13-60) H 03/19/17 04:59 Urine Color Yellow (Yellow) 03/17/17 13:40 Urine Turbidity Clear (Clear) 03/17/17 13:40 Urine pH 5.0 (5.0-7.0) 03/17/17 13:40 Ur Specific Micro 1.019 (1.003-1.030) 03/17/17 13:40 Urine Protein <15 mg/dl mg/dL (Negative) 03/17/17 13:40 Urine Glucose (UA) Neg mg/dL (Negative) 03/17/17 13:40 Urine Ketones Neg mg/dL (Negative) 03/17/17 13:40 Urine Blood Neg (Negative) 03/17/17 13:40 Urine Nitrite Neg (Negative) 03/17/17 13:40 Urine Bilirubin Neg (Negative) 03/17/17 13:40 Urine Urobilinogen < 2.0 mg/dL (<2.0) 03/17/17 13:40 Ur Leukocyte Esterase Neg (Negative) 03/17/17 13:40 Urine WBC (Auto) 3.0 /HPF (0.0-6.0) 03/17/17 13:40 Urine RBC (Auto) 3.0 /HPF (0.0-6.0) 03/17/17 13:40 U Epithel Cells (Auto) 4.0 /HPF (0-13.0) 03/17/17 13:40 Hyaline Casts 2 /LPF 03/17/17 13:40 Urine Mucus Few /HPF 03/17/17 13:40 Blood Type AB POSITIVE 03/17/17 16:36 Antibody Screen Negative 03/17/17 16:36
[2017-03-27] MEDS: DELTASONE PO SCH (10:34)
[2017-03-27] MEDS: APRESOLINE PO SCH (10:34)
[2017-03-27] MEDS: PEPCID PO SCH (10:34)
[2017-03-27] MEDS: HCTZ PO SCH (10:34)
[2017-03-27 11:35] VITALS: BP 126/69
--- NOTE | 2017-03-27 13:56 | Progress Note ---
Assessment and Plan Imp: 1. Acute cholecystitis/pancreatitis 2. Asthma exac. 3. Acute diastolic CHF 4. Mitral regurg. 5. Pulm HTN, suspect 2/2 #'s 3 and 4 6. Acute respiratory failure, hypoxia 7. Large hiatal hernia; at risk for aspiration 8. Pleural effusions Rec: 1. Holding Lasix 2. Prednisone taper at d/c 3. Nutrition consult for supplements; low-protein state likely contributing to pleural effusions 4. Pulmicort/Brovana/Albuterol 5. Wean O2 to off; check need for home O2 prior to d/c 6. On DVT PPx since admit 7. Try to mobilize w/ PT 8. Incentive marisol 9. Effusions may be related to her abdominal issues and have not adequately resolved with Lasix; recommend diagnostic and therapeutic thoracentesis of the largest one; risks, benefits explained and patient is willing to proceed 10. D/c planning Plan of care reviewed w/ patient/daughter, they understand/agree Subjective Date of service: 03/27/17 Principal diagnosis: SOB, Asthma exac. Interval history: No events. SOB better s/p Lasix. Wheezing better. No chest pain. On 1L NC. BP better. Active Medications Acetaminophen (Tylenol) 650 mg PO Q4H PRN PRN Reason: Pain MILD(1-3)/Fever >100.5/NARVAEZ Last Admin: 03/26/17 22:12 Dose: 650 mg Albuterol (Proventil) 2.5 mg IH Q4H PRN PRN Reason: Shortness Of Breath Last Admin: 03/23/17 13:16 Dose: 2.5 mg Arformoterol Tartrate (Brovana Nebu) 15 mcg IH Q12HRT [facility] Last Admin: 03/27/17 09:45 Dose: 15 mcg Bisacodyl (Dulcolax) 10 mg [place] QDAY PRN PRN Reason: Constipation unrelieved by MOM Budesonide (Pulmicort) 0.5 mg IH Q12HRT [facility] Last Admin: 03/27/17 09:45 Dose: 0.5 mg Clonidine HCl (Catapres-Tts Patch) 0.1 mg TD We [facility] Last Admin: 03/25/17 10:43 Dose: 0.1 mg Enoxaparin Sodium (Lovenox) 40 mg SUB-Q QDAY [facility] Last Admin: 03/26/17 10:32 Dose: 40 mg Famotidine (Pepcid) 20 mg PO DAILY [facility] Last Admin: 03/27/17 10:34 Dose: 20 mg Hydralazine HCl (Apresoline) 25 mg PO BID [facility] Last Admin: 03/27/17 10:34 Dose: 25 mg Hydrochlorothiazide (Hctz) 12.5 mg PO QDAY [facility] Last Admin: 03/27/17 10:34 Dose: 12.5 mg Hydromorphone HCl (Dilaudid) 1 mg IV Q6H PRN PRN Reason: Pain , Severe (7-10) Levofloxacin (Levaquin) 750 mg PO Q48HR [facility] Magnesium Hydroxide (Milk Of Magnesia) 30 ml PO Q4H PRN PRN Reason: Constipation Last Admin: 03/21/17 06:24 Dose: 30 ml Ondansetron HCl (Zofran) 4 mg IV Q3H PRN PRN Reason: N/V unrelieved by Reglan Last Admin: 03/18/17 16:02 Dose: 4 mg Prednisone (Deltasone) 40 mg PO QDAY [facility] Last Admin: 03/27/17 10:34 Dose: 40 mg Simvastatin (Zocor) 20 mg PO QHS [facility] Last Admin: 03/26/17 21:10 Dose: 20 mg Objective Vital Signs - 12hr 03/27/17 03/27/17 03/27/17 06:26 07:58 11:34 Temperature 98.5 F 98.7 F Pulse Rate 70 69 68 Respiratory 20 22 Rate Blood Pressure 129/67 126/69 O2 Sat by Pulse 94 96 95 Oximetry Constitutional: no acute distress, alert Eyes: non-icteric ENT: oropharynx moist Neck: supple Effort: normal Ascultation: Bilateral: diminished breath sounds (bases) Cardiovascular: regular rate and rhythm (no mrg) Gastrointestinal: normoactive bowel sounds, soft, non-tender, non-distended Integumentary: normal Extremities: no cyanosis, no edema, pink and warm Neurologic: normal mental status, non-focal exam, pupils equal and round, CN II- XII normal Psychiatric: mood appropriate, affect normal CBC and BMP: 03/27/17 05:03 03/27/17 05:03 ABG, PT/INR, D-dimer: PT/INR, D-dimer PT 14.5 Sec. (12.2-14.9) 03/27/17 09:29 INR 1.14 (0.87-1.13) H 03/27/17 09:29 Abnormal lab findings: Abnormal Labs 03/19/17 03/20/17 03/20/17 04:59 05:57 05:57 WBC 11.2 H MCH RDW 15.3 H Lymph % (Auto) 7.4 L [place] % (Auto) Lymph # 0.8 L Seg Neutrophils % 84.3 H Seg Neuts % (Manual) Lymphocytes % (Manual) Seg Neutrophils # 9.4 H Seg Neutrophils # Man Lymphocytes # (Manual) INR Potassium 3.2 L Carbon Dioxide BUN Creatinine 0.5 L 0.4 L Glucose 113 H Calcium 8.1 L Phosphorus Total Bilirubin 1.40 H AST 53 H ALT 106 H 71 H Alkaline Phosphatase 142 H 141 H Lactate Dehydrogenase NT-Pro-B Natriuret Pep Total Protein 5.7 L 6.1 L Albumin 2.9 L 2.8 L Lipase 71 H 03/21/17 03/22/17 03/23/17 07:43 09:41 06:02 WBC MCH RDW Lymph % (Auto) 6.6 L [place] % (Auto) Lymph # 0.3 L Seg Neutrophils % 89.4 H Seg Neuts % (Manual) Lymphocytes % (Manual) Seg Neutrophils # Seg Neutrophils # Man Lymphocytes # (Manual) INR Potassium Carbon Dioxide BUN Creatinine 0.3 L Glucose 113 H Calcium 8.1 L Phosphorus 1.50 L Total Bilirubin AST ALT Alkaline Phosphatase Lactate Dehydrogenase NT-Pro-B Natriuret Pep 1794 H Total Protein Albumin Lipase 03/23/17 03/24/17 03/24/17 06:02 05:14 05:14 WBC MCH 27 L RDW Lymph % (Auto) [place] % (Auto) Lymph # Seg Neutrophils % Seg Neuts % (Manual) 95.0 H Lymphocytes % (Manual) 4.0 L Seg Neutrophils # Seg Neutrophils # Man 9.1 H Lymphocytes # (Manual) 0.4 L INR Potassium Carbon Dioxide 32 H 31 H BUN Creatinine 0.3 L 0.4 L Glucose 129 H 139 H Calcium Phosphorus Total Bilirubin AST 78 H ALT 132 H Alkaline Phosphatase 261 H Lactate Dehydrogenase NT-Pro-B Natriuret Pep Total Protein 5.6 L Albumin 2.7 L Lipase 03/25/17 03/26/17 03/26/17 05:18 04:00 04:00 WBC MCH RDW Lymph % (Auto) [place] % (Auto) 8.4 H Lymph # Seg Neutrophils % 73.2 H Seg Neuts % (Manual) Lymphocytes % (Manual) Seg Neutrophils # Seg Neutrophils # Man Lymphocytes # (Manual) INR Potassium 3.1 L D Carbon Dioxide 32 H 31 H BUN 20 H 28 H Creatinine 0.4 L 0.4 L Glucose 104 H Calcium 8.3 L Phosphorus Total Bilirubin AST ALT Alkaline Phosphatase Lactate Dehydrogenase NT-Pro-B Natriuret Pep Total Protein Albumin Lipase 03/27/17 03/27/17 03/27/17 05:03 05:03 05:03 WBC MCH RDW 15.3 H Lymph % (Auto) [place] % (Auto) Lymph # Seg Neutrophils % Seg Neuts % (Manual) 90.0 H Lymphocytes % (Manual) 3.0 L Seg Neutrophils # Seg Neutrophils # Man 8.1 H Lymphocytes # (Manual) 0.3 L INR Potassium Carbon Dioxide 32 H BUN 21 H Creatinine 0.4 L Glucose Calcium 8.3 L Phosphorus Total Bilirubin AST ALT Alkaline Phosphatase Lactate Dehydrogenase 209 H NT-Pro-B Natriuret Pep Total Protein 5.1 L Albumin 2.8 L Lipase 03/27/17 09:29 WBC MCH RDW Lymph % (Auto) [place] % (Auto) Lymph # Seg Neutrophils % Seg Neuts % (Manual) Lymphocytes % (Manual) Seg Neutrophils # Seg Neutrophils # Man Lymphocytes # (Manual) INR 1.14 H Potassium Carbon Dioxide BUN Creatinine Glucose Calcium Phosphorus Total Bilirubin AST ALT Alkaline Phosphatase Lactate Dehydrogenase NT-Pro-B Natriuret Pep Total Protein Albumin Lipase Chest x-ray: report reviewed, image reviewed
--- NOTE | 2017-03-27 16:48 | Ultrasound Report ---
Chest ultrasound: Evaluate pleural fluid volume. Upright imaging demonstrates 2 small echolucent collections in the pleural space. On the left the volume is approximately 11 mL and in the right chest approximately 38 mL. Impression: Small bilateral pleural effusions.
[2017-03-28] MEDS ORDERED: LEVAQUIN PO SCH (10:00)
== END 2017-03-27 21:20 | disposition home or self-care (01) | DRG 438 ==
LOC: ED 14:26 → 4A 19:10
PROVIDERS: ADMIT Internal Medicine; ATTEND Hospitalist
PROC: 02HV33Z Insertion of Infusion Device into Superior Vena Cava, Percutaneous Approach (ICD-10-PCS; principal; 2017-03-20)
DX: K85.10 Biliary acute pancreatitis without necrosis or infection (principal); E43 Unspecified severe protein-calorie malnutrition; I50.31 Acute diastolic (congestive) heart failure; J96.01 Acute respiratory failure with hypoxia; K81.0 Acute cholecystitis; J45.901 Unspecified asthma with (acute) exacerbation; J90 Pleural effusion, not elsewhere classified; R74.0 Nonspecific elevation of levels of transaminase and lactic acid dehydrogenase [LDH]; E78.5 Hyperlipidemia, unspecified; E87.70 Fluid overload, unspecified; E88.09 Other disorders of plasma-protein metabolism, not elsewhere classified; E83.39 Other disorders of phosphorus metabolism; I11.0 Hypertensive heart disease with heart failure; I27.2 Other secondary pulmonary hypertension; K44.9 Diaphragmatic hernia without obstruction or gangrene; K81.1 Chronic cholecystitis; Z79.899 Other long term (current) drug therapy; Z86.73 Personal history of transient ischemic attack (TIA), and cerebral infarction without residual deficits; Z82.49 Family history of ischemic heart disease and other diseases of the circulatory system; Z68.29 Body mass index [BMI] 29.0-29.9, adult
CPT/HCPCS: 36415; 51701; 71010; 71020; 74176; 74181; 76604; 76705; 78227; 80048; 80053; 80074; 81001; 82040; 82140; 82150; 82550; 82553; 83615; 83690; 83735; 83880; 84100; 84160; 84484; 85007; 85025; 85610; 85730; 86850; 86900; 86901; 87493; 93005; 93010; 93306; 94640; 94760; 96374; 96375; 96376; A9537; G8978-GP; G8979-GP; J1170; J1650; J1940; J1956; J2270; J2405; J2543; J2805; J2920; J3480; J7040; J7042; J7512

== ENCOUNTER 2018-05-10 14:18 | Outpatient (CLI) | payer MEDICARE, OTHER ==
--- NOTE | 2018-05-10 18:45 | XRay Report ---
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 There is no significant change in the left femoral stem. The acetabular cup demonstrates persistent periprosthetic lucency. No disruption of the bony pelvic ring. Lower lumbar degenerative facet osteoarthritis. Global osteopenia. Calcification of the gluteus soft tissues. IMPRESSION: No acute fracture or dislocation. Left hip prosthesis. Osteopenic bones.
== END 2018-05-10 14:19 | disposition home or self-care (01) ==
LOC: XRAY 14:18
PROVIDERS: ATTEND Orthopaedic Surgery
DX: M16.12 Unilateral primary osteoarthritis, left hip (principal); M85.88 Other specified disorders of bone density and structure, other site; M47.896 Other spondylosis, lumbar region; J45.909 Unspecified asthma, uncomplicated; I11.0 Hypertensive heart disease with heart failure; I50.31 Acute diastolic (congestive) heart failure; E78.5 Hyperlipidemia, unspecified; Z90.49 Acquired absence of other specified parts of digestive tract; Z87.891 Personal history of nicotine dependence

== ENCOUNTER 2018-11-01 11:35 | Outpatient (CLI) | payer MEDICARE, OTHER ==
--- NOTE | 2018-11-01 13:05 | XRay Report ---
RIGHT ANKLE, 3 views: History: Chronic venous hypertension with ulcer and inflammation of lower extremity. No comparison. There is mild osteopenia. The tibiotalar joint is severely abnormal with near-complete obliteration of the joint base. It is unclear if this is secondary to advanced osteoarthritis, posttraumatic degenerative change, or Charcot joint. There is no obvious acute fracture or bone lesion. There is mild diffuse soft tissue edema. There appears to be subtle lateral ulceration but no underlying findings to suggest osteomyelitis on x-ray. 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 See above. No acute bony findings are appreciated. Shallow lateral ulceration is suspected.
== END 2018-11-01 11:36 | disposition home or self-care (01) ==
LOC: XRAY 11:35
PROVIDERS: ATTEND Nurse Practitioner Family
DX: M19.071 Primary osteoarthritis, right ankle and foot (principal); I70.233 Atherosclerosis of native arteries of right leg with ulceration of ankle; I87.331 Chronic venous hypertension (idiopathic) with ulcer and inflammation of right lower extremity; E78.5 Hyperlipidemia, unspecified; J45.909 Unspecified asthma, uncomplicated; Z87.891 Personal history of nicotine dependence

== ENCOUNTER 2018-11-18 09:47 | Outpatient (CLI) | payer MEDICARE, OTHER ==
[2018-11-18] MEDS ORDERED: XYLOCAINE TOPICAL 4% TP ONE (11:00)
== END 2018-11-18 09:48 | disposition home or self-care (01) ==
LOC: WOUND 09:47
PROVIDERS: ATTEND Surgery
DX: I70.233 Atherosclerosis of native arteries of right leg with ulceration of ankle (principal); L97.312 Non-pressure chronic ulcer of right ankle with fat layer exposed; I73.89 Other specified peripheral vascular diseases; L84 Corns and callosities; I10 Essential (primary) hypertension; J44.9 Chronic obstructive pulmonary disease, unspecified; Z96.649 Presence of unspecified artificial hip joint; Z87.891 Personal history of nicotine dependence
CPT/HCPCS: 11042; G0463; 99215

== ENCOUNTER 2018-11-23 12:53 | Outpatient (CLI) | payer MEDICARE, OTHER ==
[2018-11-23] MEDS ORDERED: XYLOCAINE TOPICAL 4% TP ONE (13:15)
== END 2018-11-23 12:54 | disposition home or self-care (01) ==
LOC: WOUND 12:53
PROVIDERS: ATTEND Surgery
DX: I70.233 Atherosclerosis of native arteries of right leg with ulceration of ankle (principal); L97.312 Non-pressure chronic ulcer of right ankle with fat layer exposed; I10 Essential (primary) hypertension; J44.9 Chronic obstructive pulmonary disease, unspecified; Z96.649 Presence of unspecified artificial hip joint; Z87.891 Personal history of nicotine dependence

== ENCOUNTER 2018-12-01 15:24 | Outpatient (CLI) | payer MEDICARE, OTHER ==
--- NOTE | 2018-12-02 17:51 | XRay Report ---
PROCEDURE: XR SPINE LUMBOSACRAL 4+V HISTORY: LOW BACK PAIN FINDINGS: AP, lateral and bilateral oblique views of the lumbar spine were acquired as well as coned- down lateral view of L5-S1. These images demonstrate no fracture of the lumbar spine. There is 0.4 cm degenerative retrolisthesis of L1 on L2 and 0.4 cm degenerative retrolisthesis of L2 on L3. There is loss of intervertebral disc space height at T11-12, L1-L2 and L2-L3 and there is anterior en dplate remodeling at T11-12, T12-L1, L1-L2 and L2-L3. There is scoliosis convex right at L4-5 of 10 degrees. IMPRESSION: No fracture is seen in the lumbar spine This document is electronically signed by Luis Springer MD., Dec 02 2018 05:49:33 PM ET
== END 2018-12-01 15:25 | disposition home or self-care (01) ==
LOC: XRAY 15:24
PROVIDERS: ATTEND Orthopaedic Surgery
DX: M41.86 Other forms of scoliosis, lumbar region (principal); M43.16 Spondylolisthesis, lumbar region; I10 Essential (primary) hypertension; J45.909 Unspecified asthma, uncomplicated
CPT/HCPCS: 72110

== ENCOUNTER 2018-12-02 11:00 | Outpatient (CLI) | payer MEDICARE, OTHER | END 2018-12-02 11:01 | disposition home or self-care (01) | LOC: WOUND 11:00 | PROVIDERS: ATTEND Surgery | DX: I70.233 Atherosclerosis of native arteries of right leg with ulceration of ankle (principal); L97.312 Non-pressure chronic ulcer of right ankle with fat layer exposed; I10 Essential (primary) hypertension; J44.9 Chronic obstructive pulmonary disease, unspecified; Z96.649 Presence of unspecified artificial hip joint; Z87.891 Personal history of nicotine dependence | CPT/HCPCS: 99212; G0463 ==